=== PATIENT | female | born 1955 | race Caucasian/White ===

== ENCOUNTER 2018-01-09 09:50 | Emergency (ER) | payer MEDICARE ==
[2018-01-09] MEDS ORDERED: AMOXIC-POT CLAV 875MG STARTER 2 EACH TABLET PO STA (10:53)
[2018-01-09] MEDS ORDERED: AMOXIC-POT CLAV 875-125MG 1 EACH TAB PO STA (10:53)
[2018-01-09] MEDS ORDERED: ACETAMINOPHEN TAB 500 MG TAB PO STA (10:54)
--- NOTE | 2018-01-09 11:00 | ED ---
General Adult HPI - General Chief complaint: Dental/Oral Stated complaint: Tooth Pain Time Seen by Provider: 01/09/18 10:00 Source: patient, RN notes reviewed Mode of arrival: wheelchair Limitations: no limitations - History of Present Illness Initial comments: This is a 8-year-old female who presents emergency Department complaining that she thinks she has an dental abscess on the right lower jaw. Patient states it started on Tuesday and has gotten progressively worse. Patient states been unable to get into a dentist on the weekend and today's holiday. Patient states she went to [facility] they sent her here. Patient states just prior to coming into the emergency department she felt abscess rupture and she's been spitting pus out of her mouth at this time. Patient states it already feels better. Patient is not taking any Tylenol or Motrin for the fever she has not taken any antibiotics. Patient denies any other symptoms at this time. - Related Data Previous Rx's Medication Instructions Recorded Amoxicillin/Potassium Clav 1 each PO Q12HR #28 tab 01/09/18 [Augmentin 875-125 Tablet] Hydrocodone/Acetaminophen [[place] 1 each PO Q4HR PRN #14 tab 01/09/18 5-325] Ibuprofen [Motrin] 600 mg PO Q6HR PRN #20 tab 01/09/18 Allergies Allergy/AdvReac Type Severity Reaction Status Date / Time bacitracin Allergy Rash/Hives Verified 01/09/18 10:09 [From Neosporin ([id number])] clarithromycin [From Biaxin] Allergy Rash/Hives Verified 01/09/18 10:09 codeine Allergy Rash/Hives Verified 01/09/18 10:09 neomycin Allergy Rash/Hives Verified 01/09/18 10:09 [From Neosporin ([id number])] polymyxin B Allergy Rash/Hives Verified 01/09/18 10:09 [From Neosporin ([id number])] Review of Systems ROS Statement: Those systems with pertinent positive or pertinent negative responses have been documented in the HPI. ROS Other: All systems not noted in ROS Statement are negative. Past Medical History Past Medical History: Atrial Fibrillation, Diabetes Mellitus, Hyperlipidemia, Hypertension, Thyroid Disorder Additional Past Medical History / Comment(s): Neuropathy, skin cancer in nose, gout History of Any Multi-Drug Resistant Organisms: None Reported Past Surgical History: Section, Orthopedic Surgery Past Psychological History: No Psychological Hx Reported Smoking Status: Never smoker Past Alcohol Use History: None Reported Past Drug Use History: None Reported General Exam - General Exam Comments Initial Comments: GENERAL Patient is well-developed and well-nourished. Patient is in mild distress. MOUTH Patient has what appears to be a deflated abscess with pulse still slowly leaking out of it on her right lower jaw on the premolar EYES Patient's pupils are equal and round. Extraocular motion is intact SKIN Unremarkable NEURO The patient is alert and oriented 3 PYSCH Patient has normal interpersonal interactions. MUSCULOSKELETAL All 4 times and full range of motion Limitations: no limitations Course Vital Signs 01/09/18 01/09/18 10:05 11:15 Temperature 100.8 F H 97.9 F Pulse Rate 97 78 Respiratory 18 16 Rate Blood Pressure 152/83 138/70 O2 Sat by Pulse 97 99 Oximetry Disposition Clinical Impression: Dental abscess Disposition: HOME SELF-CARE Condition: Good Instructions: Dental Abscess (ED) Prescriptions: Amoxicillin/Potassium Clav [Augmentin 875-125 Tablet] 1 each PO Q12HR #28 tab Hydrocodone/Acetaminophen [[place] 5-325] 1 each PO Q4HR PRN #14 tab PRN Reason: Pain Ibuprofen [Motrin] 600 mg PO Q6HR PRN #20 tab PRN Reason: For pain Is patient prescribed a controlled substance at d/c from ED?: Yes When asked, does pt state using other controlled substances?: Yes If opioid is for acute pain is fill amount 7 days or less?: Yes Referrals: Kang Blackwell MD [Primary Care Provider] - 1-2 days Time of Disposition: 10:59
[2018-01-09] MEDS ORDERED: ACETAMINOPHEN TAB 500 MG TAB ONE (11:06)
[2018-01-09] MEDS ORDERED: AMOXIC-POT CLAV 875MG STARTER 2 EACH TABLET ONE (11:06)
[2018-01-09 11:16] VITALS: BP 138/70; PULSE 78; RESP 16; TEMP 97.9
== END 2018-01-09 11:15 | disposition home or self-care (01) ==
LOC: EC 09:50
DX: K04.7 Periapical abscess without sinus (principal); Z85.828 Personal history of other malignant neoplasm of skin; Z88.1 Allergy status to other antibiotic agents; Z88.5 Allergy status to narcotic agent
CPT/HCPCS: 99282

== ENCOUNTER → 2022-06-02 | Outpatient (CLI) | payer MEDICARE ==
[2022-06-02 14:38] LABS: African American GFR (CKD) >90 (>60 ml/min/1.73 sqM); Blood Urea Nitrogen 24 mg/dL (7-17); Non-African American GFR(CKD) 80 (>60 ml/min/1.73 sqM)
--- NOTE | 2022-06-02 16:28 | CT ---
EXAMINATION TYPE: CT abdomen pelvis w con DATE OF EXAM: 06/02/2022 COMPARISON: NONE HISTORY: 66-year-old female R10.84, R01.2, R19.00, Abdomen and pelvic pain. Vaginal bleeding. TECHNIQUE: Contiguous axial scanning of the abdomen and pelvis following administration of 100 ml Iso toy 300 IV contrast. Delayed images through the kidneys and coronal/sagittal reconstructions perform ed. CT DLP: 2528 mGycm Automated exposure control for dose reduction was used. FINDINGS: Heart upper limits of normal in size. Some LAD and RCA coronary calcifications are noted. P ericardial effusion. Tiny calcified granuloma periphery of the right lower lobe. No pleural effusion. Tiny hiatal hernia. Slight contour nodularity of the liver. Correlate for underlying cirrhosis. No focal liver lesions se en. Portal venous system is patent. No biliary ductal dilatation. Gallbladder, glands, spleen, and pancreas show no gross abnormality. Nonobstructive 7 mm calculus right kidney. Nonobstructive 4 mm calculus left kidney. There is delayed excretion of contrast from both kidneys noted. Correlate with A creatinine to exclude acute kidney injury. At least mild prostatic calcifications origin of the maría elena ateral renal arteries. No dilated small bowel, free fluid, or free air. There is left common iliac chain lymphadenopathy felicita suring up to 4.7 x 2.8 cm and left periaortic is equivocal at 1.0 cm. There is severe distention of the uterine cavity by fluid and irregular heterogeneous soft tissue sca ttered throughout the uterus. Uterus is dilated up to 22.8 x 11.5 x 13.5 cm. Possible abnormal soft tissue along the left bladder dome measuring 4.9 cm. Internal enlarged left ov jnenifer versus left obturator chain lymph node measuring 5.6 x 3.4 cm. Right ovary not well seen. There i s mild ascites within the anterior aspect of the pelvis interposed between the anterior uterus and bl adder dome. There is colon Mild degenerative change at the hips. Somewhat heterogeneous density of the visualized lumbar spine a nd sacrum may be due to osteopenia. Moderate to advanced degenerative disc disease mid to lower lumba r spine. Hypertrophic facet arthropathy. IMPRESSION: 1. ENLARGEMENT OF THE UTERUS UP TO 22.8 X 11.5 X 13.5 CM SECONDARY TO SEVERE DISTENTION OF THE UTERIN E CAVITY WITH COMBINATION OF FLUID AND HETEROGENEOUS SOFT TISSUE. FURTHER EVALUATION FOR POTENTIAL EN DOMETRIAL CARCINOMA OR CERVICAL STENOSIS. 2. EITHER ENLARGED LEFT OVARY VERSUS LEFT OBTURATOR CHAIN LYMPHADENOPATHY MEASURING 5.6 X 2.4 CM. 3. METASTATIC DISEASE WITH AN ENLARGED 4.7 X 2.8 CM LEFT COMMON ILIAC CHAIN LYMPH NODE. POSSIBLE SOFT TISSUE DEPOSIT ALONG THE LEFT DOME OF THE BLADDER MEASURING 4.9 CM. MILD ANTERIOR PELVIC FREE FLUID. 4. SLIGHT CONTOUR NODULARITY OF THE LIVER. CORRELATE FOR UNDERLYING CIRRHOSIS. 5. BILATERAL NONOBSTRUCTING RENAL CALCULI MEASURING UP TO 7 MM. 6. NO EXCRETION OF CONTRAST ON THE DELAYED KIDNEY IMAGES. CORRELATE WITH BUN/CREATININE TO EXCLUDE AC [place] RENAL FAILURE.
== END | disposition home or self-care (01) ==
LOC: RADCTMAIN 13:01
PROVIDERS: ATTEND Obstetrics & Gynecology Obstetrics
DX: C80.1 Malignant (primary) neoplasm, unspecified (principal); R10.84 Generalized abdominal pain; R19.00 Intra-abdominal and pelvic swelling, mass and lump, unspecified site
CPT/HCPCS: 82565; 84520; 74177; 36415; Q9967 ×2

== ENCOUNTER → 2022-07-01 | Outpatient (CLI) | payer MEDICARE ==
--- NOTE | 2022-07-01 09:49 | CT ---
EXAMINATION TYPE: CT chest w con CT DLP: 405.4 mGycm, Automated exposure control for dose reduction was used. DATE OF EXAM: 07/01/2022 8:14 AM COMPARISON: CT abdomen and pelvis 06/02/2022. CLINICAL INDICATION:Female, 66 years old with history of C54.9; PHH, Malignant neoplasm of corpus kana ri, unspecified TECHNIQUE: Multiple axial images were obtained through the chest following the administration of 70 c c of Isovue 300. Coronal and sagittal reformats reviewed. FINDINGS: LUNGS/ PLEURA: No pneumothorax, pleural effusion, focal consolidation. Right lower lobe 3 mm calcifie d granuloma. Few scattered tiny pulmonary micronodules examples including left apex 3 and 2 mm pulmon jennifer nodules (series 4, image 10), right midlung 2 mm noncalcified pulmonary nodule (series 4, image 3 1), right lower lobe 2 mm pulmonary nodule (series 4, image 39), and right lower lobe 3 mm noncalcifi ed pulmonary nodule (series 4, image 44). AIRWAY: Patent and unremarkable.. HEART: Size within normal limits. No pericardial effusion. Moderate coronary arterial calcifications. MEDIASTINUM: No gross evidence of adenopathy. VASCULATURE: No aortic aneurysm. MUSCULOSKELETAL: No acute osseous abnormalities. No aggressive osseous lesion. Mild multilevel degene rative changes of the visualized spine. SOFT TISSUES/LYMPH NODES: Enlarged left axillary lymph node measuring up to 1.6 cm short axis (series 3, image 12). LOWER NECK: Atrophic appearance of the thyroid gland.. UPPER ABDOMEN: Small hiatal hernia. Similar contour nodularity of the left hepatic lobe. IMPRESSION: 1. Few scattered nonspecific pulmonary micronodules measuring up to 3 mm. 2. Enlarged left axillary lymph node measuring 1.6 cm short axis. Raises concern for metastatic disea se. Consider further evaluation with PET/CT and/or tissue sampling.
== END | disposition home or self-care (01) ==
LOC: RADCTMAIN 07:08
PROVIDERS: ATTEND Internal Medicine Hematology & Oncology
DX: C54.9 Malignant neoplasm of corpus uteri, unspecified (principal); R91.8 Other nonspecific abnormal finding of lung field; R59.0 Localized enlarged lymph nodes
CPT/HCPCS: 82565; 84520; 71260; 36415; Q9967

== ENCOUNTER → 2022-08-23 | Outpatient (CLI) | payer MEDICARE ==
[2022-08-23 13:16] LABS: African American GFR (CKD) >90 (>60 ml/min/1.73 sqM); Blood Urea Nitrogen 16 mg/dL (7-17); Non-African American GFR(CKD) 87 (>60 ml/min/1.73 sqM)
--- NOTE | 2022-08-23 15:08 | CT ---
EXAMINATION TYPE: CT abdomen pelvis w con CT DLP: 1664.3 mGycm, Automated exposure control for dose reduction was used. DATE OF EXAM: 08/23/2022 2:54 PM COMPARISON: CT abdomen pelvis 06/02/2022. CLINICAL INDICATION:Female, 66 years old with history of C54.9 MALIGNANT NEOPLASM OF CORPUS UTERI, UN SPECIF; f/u uterine ca TECHNIQUE: Axial CT of the abdomen and pelvis. Sagittal and coronal reformats were created on a [employer] workstation. Contrast used:100 mL of Isovue 300 with IV Contrast, Oral contrast used: with Oral Contrast FINDINGS: LOWER CHEST: Right lower lobe 3 mm calcified granuloma. Unchanged from prior ABDOMEN LIVER: Nodular contour obstruction morphology. Most pronounced in the left hepatic lobe. No obvious s uspicious masses. GALLBLADDER AND BILE DUCTS: Unremarkable. PANCREAS: Unremarkable. SPLEEN: Unremarkable. ADRENAL GLANDS: Unremarkable. KIDNEYS AND URETERS: Nonobstructing right 7 mm renal calculus. Nonobstructing left 3 mm meter renal c alculus. No evidence of obstructive uropathy. PELVIS BLADDER: Unremarkable REPRODUCTIVE: Heterogenous appearing uterus measuring 16.8 x 9.2 x 13.1 cm, previously 21.1 x 11.6 x 13.5 cm. ABDOMEN & PELVIS STOMACH AND BOWEL: No evidence of bowel obstruction. PERITONEUM/RETROPERITONEUM: No evidence of pneumoperitoneum or free fluid. . VASCULATURE: No evidence of aortic aneurysm. MUSCULOSKELETAL: No acute osseous abnormalities, multilevel disc degeneration changes lucent area wit hin the L4 vertebral body is not significantly changed from prior same with a left lucent iliac crest lesion with peripheral sclerosis. LYMPH NODES: Interval increase in size of left retroperitoneal lymph node near the aortic bifurcation now measuring 7.4 x 6.5 x 6.4 cm, previously 4.5 x 4.7 x 2.8 cm. Other left external iliac lymph nod es have also increased in size including a 3.8 cm in short axis, previously 3.4 cm lymph node in the left obturator/left internal iliac chain. SOFT TISSUE/ABDOMINAL WALL: Unremarkable IMPRESSION: 1. Heterogenous enlarged uterus consistent with malignancy with interval increase in size of lymphad enopathy within the retroperitoneum pelvis consistent with progression of disease. 2. Similar nodular contour to liver correlate for cirrhosis. 3. Bilateral nonobstructing renal calculi.
== END | disposition home or self-care (01) ==
LOC: RADCTMAIN 12:36
PROVIDERS: ATTEND Internal Medicine Hematology & Oncology
DX: C54.9 Malignant neoplasm of corpus uteri, unspecified (principal); N20.0 Calculus of kidney; N85.2 Hypertrophy of uterus; K76.89 Other specified diseases of liver
CPT/HCPCS: 82565; 84520; 74177; 36415; Q9967 ×2

== ENCOUNTER 2022-10-28 12:11 | Inpatient (IN) | payer MEDICARE ==
[2022-10-28] MEDS ORDERED: SODIUM CHLORIDE 0.9% 1,000 ML IV STA ×2 (12:32)
[2022-10-28] MEDS ORDERED: VANCOMYCIN IV PER PHARMACY 1 EACH MISC MISCELLANE PRN (12:32)
[2022-10-28] MEDS ORDERED: ACETAMINOPHEN TAB 500 MG TAB PO STA (12:35)
[2022-10-28] MEDS ORDERED: CEFEPIME 2 GM in SODIUM CHLORIDE 0.9% 100 ML IVPB STA (12:38)
[2022-10-28] MEDS ORDERED: VANCOMYCIN 1,750 MG in SODIUM CHLORIDE 0.9% 500 ML 500 ML IVPB STA (12:39)
--- NOTE | 2022-10-28 13:19 | ED ---
General Adult HPI <Nguyen Chandra - Last Filed: 10/28/22 17:59> - General Source: patient, EMS, RN notes reviewed, old records reviewed Mode of arrival: EMS Limitations: altered mental status <Nathan Gracia - Last Filed: 10/28/22 22:14> - General Chief complaint: Shortness of Breath Stated complaint: JANE Time Seen by Provider: 10/28/22 12:26 - History of Present Illness Initial comments: Patient is a 67-year-old female who presents emergency Department with altered mental status, fever, tachycardia. Has history of A. fib with RVR on eliquis, stage IV uterine cancer with metastases, right ICA stenosis with blood thinner usage, chronic vaginal bleeding secondary to the cancer, who presents emergency Department complaining of altered mental status, as well as signs of worsening illness. Was diagnosed with Covid recently at her nursing facility. Was just discharged from the hospital on 10/18/2022. Patient has been having more confusion, some increased work of breathing, worsening tachycardia. Sent here for further evaluation. Patient states she has been coughing a lot. Denies any chest pain. Denies any abdominal pain, nausea, vomiting. Does have a chronic indwelling Bryant catheter. States she feels generalized weakness. Is normally alert and oriented 4 but is only alert and oriented 2 at this time. No other focal complaints at this time. Patient does present with DO NOT RESUSCITATE paperwork. (Nathan Gracia) - Related Data Home Medications Medication Instructions Recorded Confirmed Atorvastatin [Lipitor] 20 mg PO HS 10/05/22 10/28/22 Cholecalciferol [Vitamin D3 (25 50 mcg PO DAILY 10/05/22 10/28/22 Mcg = 1000 Iu)] Cyclobenzaprine [Flexeril] 10 mg PO TID PRN 10/05/22 10/28/22 Digoxin [Digitek] 125 mcg PO SUTUWETHSA 10/05/22 10/28/22 Digoxin [Digitek] 187.5 mcg PO MOFR 10/05/22 10/28/22 Famotidine [Pepcid] 20 mg PO Q12H 10/05/22 10/28/22 Ferrous Sulfate [Iron (65 MG 650 mg PO DAILY 10/05/22 10/28/22 Elemental)] Levothyroxine Sodium [Synthroid] 175 mcg PO DAILY 10/05/22 10/28/22 Losartan [Cozaar] 50 mg PO DAILY 10/05/22 10/28/22 Metoprolol Tartrate [Lopressor] 100 mg PO BID 10/05/22 10/28/22 [place]-3 Fatty Acids [[place]-3] 1,000 mg PO TID 10/05/22 10/28/22 Thiamine [Vitamin B-1] 100 mg PO DAILY 10/05/22 10/28/22 Vit C/E/Zn/Coppr/Lutein/Zeaxan 1 cap PO Q12H 10/05/22 10/28/22 [Preservision Areds 2 Softgel] allopurinoL 200 mg PO DAILY 10/05/22 10/28/22 metFORMIN HCL ER [Glucophage XR] 500 mg PO DAILY 10/05/22 10/28/22 Apixaban [Eliquis] 5 mg PO Q12H 10/28/22 10/28/22 Ascorbic Acid [Vitamin C] 500 mg PO DAILY 10/28/22 10/28/22 HYDROcodone/APAP 5-325MG [[place] 1 tab PO TID PRN 10/28/22 10/28/22 5-325] Ondansetron [Zofran] 4 mg PO Q4H PRN 10/28/22 10/28/22 Zinc Gluconate [Zinc] 50 mg PO DAILY 10/28/22 10/28/22 predniSONE See Taper PO DIRECTED 10/28/22 10/28/22 Previous Rx's Medication Instructions Recorded Acetaminophen Tab [Tylenol] 650 mg PO Q6HR PRN tab 10/18/22 Aspirin 81 mg PO DAILY tab 10/18/22 Butalb/APAP/Caff 50-325-40Mg 1 tab PO Q4H PRN #6 tablet 10/18/22 [Fioricet 50-325-40] Doxycycline [Vibramycin] 100 mg PO BID #41 cap 10/18/22 Fluticasone Nasal [place] [Flonase 2 spray EA NOSTRIL DAILY ml 10/18/22 Nasal [place]] Gabapentin [Neurontin] 400 mg PO QID #12 cap 10/18/22 Mag Hydrox/Al Hydrox/Simeth 30 ml PO TID ml 10/18/22 [Maalox] Meclizine [Antivert] 25 mg PO TID PRN tab 10/18/22 Sennosides [Senokot] 8.6 mg PO BID PRN tab 10/18/22 guaiFENesin [Mucinex] 1,200 mg PO Q12HR tab 10/18/22 Allergies Allergy/AdvReac Type Severity Reaction Status Date / Time bacitracin Allergy Rash/Hives Verified 10/28/22 15:04 [From Neosporin ([id number])] clarithromycin [From Biaxin] Allergy Rash/Hives Verified 10/28/22 15:04 codeine Allergy Rash/Hives Verified 10/28/22 15:04 neomycin Allergy Rash/Hives Verified 10/28/22 15:04 [From Neosporin ([id number])] polymyxin B Allergy Rash/Hives Verified 10/28/22 15:04 [From Neosporin ([id number])] Review of Systems ROS Other: All systems not noted in ROS Statement are negative. <Nguyen Chandra - Last Filed: 10/28/22 17:59> ROS Other: All systems not noted in ROS Statement are negative. <Nathan Gracia - Last Filed: 10/28/22 22:14> ROS Statement: Those systems with pertinent positive or pertinent negative responses have been documented in the HPI. Review of Systems: CONST: Denies fever EYES: Denies blurry vision ENT: Endorse's nasal congestion C/V: Denies Chest pain RESP: Endorse's increased coughing GI: Denies abdominal pain : Denies dysuria SKIN: Denies rash. MSK: Denies joint pain. NEURO: Denies headache (Nathan Gracia) Past Medical History Past Medical History: Atrial Fibrillation, Diabetes Mellitus, Hyperlipidemia, Hypertension, Thyroid Disorder Additional Past Medical History / Comment(s): Neuropathy, skin cancer in nose, gout History of Any Multi-Drug Resistant Organisms: None Reported Past Surgical History: Section, Orthopedic Surgery Additional Past Surgical History / Comment(s): ulnar nerve surgery Past Anesthesia/Blood Transfusion Reactions: No Reported Reaction Past Psychological History: No Psychological Hx Reported Past Alcohol Use History: None Reported Past Drug Use History: None Reported <Nathan Gracia - Last Filed: 10/28/22 22:14> General Exam Limitations: altered mental status <Nathan Gracia - Last Filed: 10/28/22 22:14> - General Exam Comments Initial Comments: General: Appears in no acute distress at this time. HEAD: Normal with no signs of head trauma. EYES: PERRLA, EOMI, conjunctiva normal, no discharge. ENT: Hearing grossly intact, normal oropharynx. Dry mucous membranes RESPIRATORY: Coarse breath sounds bilaterally. Saturating well on 2 L nasal cannula. C/V: Irregular rate and rhythm. S1 and S2 auscultated, mild bilateral lower extremity pitting edema, peripheral pulses 2+ and intact throughout ABD: Abd is soft, nontender, nondistended EXT: Normal range of motion, no obvious deformity SKIN: No rashes or lesions observed on exposed skin. NEURO: Alert and oriented 2. No focal sensory strength deficits. (Nathan Gracia) Course Vital Signs 10/28/22 10/28/22 10/28/22 12:14 12:23 12:30 Temperature 101.3 F H Pulse Rate 121 H 112 H 123 H Respiratory 20 21 21 Rate Blood Pressure 125/41 125/41 96/57 O2 Sat by Pulse 98 100 98 Oximetry 10/28/22 10/28/22 10/28/22 13:00 13:30 14:00 Temperature Pulse Rate 115 H 110 H 105 H Respiratory 16 22 20 Rate Blood Pressure 106/69 111/70 103/66 O2 Sat by Pulse 100 98 98 Oximetry 10/28/22 10/28/22 10/28/22 14:30 14:57 15:00 Temperature 98.3 F Pulse Rate 106 H 115 H 120 H Respiratory 21 20 20 Rate Blood Pressure 107/93 126/56 126/56 O2 Sat by Pulse 100 94 L 93 L Oximetry 10/28/22 10/28/22 10/28/22 15:30 16:00 18:22 Temperature 97.5 F L Pulse Rate 115 H 110 H 116 H Respiratory 18 23 24 Rate Blood Pressure 132/50 97/51 60/28 O2 Sat by Pulse 92 L 91 L 116 H Oximetry Procedures - EJ/Peripheral Line No standard instances Indications: nurses unable to establish peripheral IV Skin Cleansed in Sterile Fashion: Yes Size: 20 Dressing Placed: Tegaderm Patient Tolerated Procedure: well, no complications <Nguyen Chandra - Last Filed: 10/28/22 17:59> - Sepsis Sepsis Focused Exam #1 Time Sepsis Criteria Met: 12:32 Sepsis Focused Exam Date: 10/28/22 Sepsis Focused Exam Time: 17:00 Sepsis Focused Exam Complete: Yes Vital Signs & RN Notes Reviewed: Yes Capillary Refill: < 2 Seconds: Fingers, Toes Peripheral Pulses: Normal: Radial (R), Radial (L) Skin Color: Normal for Patient Respiratory Exam: normal lung sounds Cardiovascular Exam: regular rate, irregular rhythm <BasilNathan - Last Filed: 10/28/22 22:14> - EJ/Peripheral Line No standard instances Additional Comments: Ultrasound-guided IV placed 20-gauge placed in the left upper arm. site is clean and dry and intact. Without any redness or erythema. Saline lock was flushed with 10 mL. Secured with Tegaderm. No complications patient tolerated well (Nguyen Chandra) Medical Decision Making - Lab Data Result diagrams: 10/28/22 14:29 10/28/22 14:29 <Nguyen Chandra - Last Filed: 10/28/22 17:59> - Lab Data Result diagrams: 10/28/22 14:29 10/28/22 14:29 - EKG Data -: EKG Interpreted by Me <BasilNathan - Last Filed: 10/28/22 22:14> - Medical Decision Making Was pt. sent in by a medical professional or institution (, PA, PROSPECT MANAGER, urgent care, hospital, or intermediate...) When possible be specific @ -Sent from [facility] in the [facility] Did you speak to anyone other than the patient for history (EMS, parent, family, police, friend...)? What history was obtained from this source @ -No Did you review nursing and triage notes (agree or disagree)? Why? @ -I reviewed and agree with nursing and triage notes Were old charts reviewed (outside hosp., previous admission, EMS record, old EKG, old radiological studies, urgent care reports/EKG's, intermediate records)? Report findings @ -Old charts reviewed from most recent admission from October 2022. Differential Diagnosis (chest pain, altered mental status, abdominal pain women, abdominal pain men, vaginal bleeding, weakness, fever, dyspnea, syncope, headache, dizziness, GI bleed, back pain, seizure, CVA, palpatations, mental health, musculoskeletal)? @ -Differential Dyspnea: Coronary syndrome, arrhythmia, tamponade, asthma, COPD, pulmonary embolism, pneumonia, pneumothorax, pulmonary effusion, anaphylaxis, diabetic ketoacidosis, flailed chest, pulmonary contusion, diaphragmatic rupture, anemia, pneumonia, Covid infection, A. fib neuromuscular, this is not meant to be an all-inclusive list. EKG interpreted by me (3pts min.). @ -As above X-rays interpreted by me (1pt min.). @ -Chest x-ray negative for any acute infiltrate. Appears to have chronic findings. Also a left sided pleural effusion. CT interpreted by me (1pt min.). @ -CT brain negative for any obvious acute intracranial process. U/S interpreted by me (1pt. min.). @ -None done What testing was considered but not performed or refused? (CT, X-rays, U/S, labs)? Why? @ -None What meds were considered but not given or refused? Why? @ -None Did you discuss the management of the patient with other professionals (professionals i.e. DrNeri, PA, PROSPECT MANAGER, lab, RT, psych nurse, social work therapist, bilingual teacher assistant, teacher, corporate banking officer, caser)? Give summary @ -No Was smoking cessation discussed for >3mins.? @ -No Was critical care preformed (if so, how long)? @ -Yes, 35 minutes. Were there social determinants of health that impacted care today? How? (Homel essness, low income, unemployed, alcoholism, drug addiction, transportation, low edu. Level, literacy, decrease access to med. care, [facility], rehab)? @ -No Was there de-escalation of care discussed even if they declined (Discuss DNR or withdrawal of care, Hospice)? DNR status @ -No What co-morbidities impacted this encounter? (DM, HTN, Smoking, COPD, CAD, Cancer, CVA, ARF, Chemo, Hep., AIDS, mental health diagnosis, sleep apnea, morbid obesity)? @ -History of atrial fibrillation, history of metastatic cancer, on blood thinners, recent Covid 19 infection Was patient admitted / discharged? Hospital course, mention meds given and route, prescriptions, significant lab abnormalities, going to OR and other pertinent info. @ -Based on the patient's presentation and physical exam, and concern for acute infectious etiology for her current symptoms. She presents febrile, with increased work of breathing and hypoxic respiratory failure requiring nasal cannula oxygen. Was recently diagnosed Covid. Patient is also tachycardic. I do believe she meets sepsis criteria at this time. She is altered as well. She'll be started on broad-spectrum thank mice and cefepime. Due to the increased lower extremity edema, we will initially start the patient on 1 L fluid bolus as she does appear mildly dehydrated and then put her on 130 mL an hour of fluids. Patient started on broad-spectrum antibiotic mice and cefepime. Lactic acid is pending. Blood cultures were obtained sent. Patient is doing on 4 L nasal cannula oxygen we will wean off as tolerated. She was in agreement with this plan. Bryant catheter will be replaced. Patient's laboratory studies are remarkable for a leukocytosis of 26, anemia of 8.2, lactic acidosis of 3.1, nondetectable troponin, as well as what appears to be urinary tract infection positive Covid test. Patient has chronic anemia which is unchanged. Chest x-ray reveals a left-sided pleural effusion as well as chronic findings of a possible infiltrate that is unchanged from prior chest x-ray. Brain CT shows no acute intracranial process. I updated the patient. Vital signs are improved at this time. She'll be admitted for her sepsis, Covid 19 infection, A. fib with RVR. She was in agreement this plan. Broad spectrum antibiotics will be continued. I spoke with the admitting physician, Dr. Hernández who accepted the patient. She was admitted in serious condition. Patient is hemodynamically stable and feels improved when I updated her. Inpatient team requested that I consult infectious disease. Undiagnosed new problem with uncertain prognosis? @ -No Drug Therapy requiring intensive monitoring for toxicity (Heparin, Nitro, Insulin, Cardizem)? @ -No Were any procedures done? @ -No Diagnosis/symptom? @ -Covid 19 infection Acute, or Chronic, or Acute on Chronic? @ -Acute Uncomplicated (without systemic symptoms) or Complicated (systemic symptoms)? @ -Complicated Side effects of treatment? @ -No Exacerbation, Progression, or Severe Exacerbation? @ -No Poses a threat to life or bodily function? How? (Chest pain, [place], [place], pneumonia, PE, COPD, DKA, ARF, appy, cholecystitis, CVA, Diverticulitis, Homicidal, Suicidal, threat to staff... and all critical care pts) @ -Yes, can potentially cause significant morbidity and mortality. Diagnosis/symptom? @ -Sepsis Acute, or Chronic, or Acute on Chronic? @ -Acute Uncomplicated (without systemic symptoms) or Complicated (systemic symptoms)? @ -Complicated Side effects of treatment? @ -none Exacerbation, Progression, or Severe Exacerbation] @ -no Poses a threat to life or bodily function? @ -If untreated can result in significant morbidity and mortality. Diagnosis/symptom? @ -A. fib with RVR Acute, or Chronic, or Acute on Chronic? @ -Acute on chronic Uncomplicated (without systemic symptoms) or Complicated (systemic symptoms)? @ -Uncomplicated Side effects of treatment? @ -none Exacerbation, Progression, or Severe Exacerbation] @ -no Poses a threat to life or bodily function? @ -If untreated can result in significant morbidity and mortality. Diagnosis/symptom? @ -UTI Acute, or Chronic, or Acute on Chronic? @ -Acute Uncomplicated (without systemic symptoms) or Complicated (systemic symptoms)? @ -Complicated Side effects of treatment? @ -none Exacerbation, Progression, or Severe Exacerbation] @ -no Poses a threat to life or bodily function? @ -If untreated can result in significant morbidity and mortality. Diagnosis/symptom? @ -DO NOT RESUSCITATE Acute, or Chronic, or Acute on Chronic? @ -Acute Uncomplicated (without systemic symptoms) or Complicated (systemic symptoms)? @ -Uncomplicated Side effects of treatment? @ -none Exacerbation, Progression, or Severe Exacerbation] @ -no Poses a threat to life or bodily function? @ -no Diagnosis/symptom? @ -History of metastatic cancer Acute, or Chronic, or Acute on Chronic? @ -Chronic Uncomplicated (without systemic symptoms) or Complicated (systemic symptoms)? @ -Complicated Side effects of treatment? @ -none Exacerbation, Progression, or Severe Exacerbation] @ -no Poses a threat to life or bodily function? @ -Yes, poses threat to life. (Nathan Gracia) - Lab Data Lab Results 10/28/22 10/28/22 10/28/22 Range/Units 14:29 14:29 14:29 WBC 26.0 H (3.8-10.6) k/uL RBC 2.31 L (3.80-5.40) m/uL Hgb 8.2 L (11.4-16.0) gm/dL Hct 25.3 L (34.0-46.0) % MCV 109.7 H D (80.0-100.0) fL MCH 35.6 H (25.0-35.0) pg MCHC 32.5 (31.0-37.0) g/dL RDW 15.1 (11.5-15.5) % Plt Count 220 (150-450) k/uL MPV 8.2 Neutrophils % 93 % Lymphocytes % 4 % Monocytes % 2 % Eosinophils % 0 % Basophils % 0 % Neutrophils # 24.2 H (1.3-7.7) k/uL Lymphocytes # 1.0 (1.0-4.8) k/uL Monocytes # 0.5 (0-1.0) k/uL Eosinophils # 0.1 (0-0.7) k/uL Basophils # 0.0 (0-0.2) k/uL Manual Slide Review Performed Hypochromasia Slight Macrocytosis Marked A PT 12.0 (9.0-12.0) sec INR 1.2 H (<1.2) APTT 26.9 (22.0-30.0) sec Sodium (137-145) mmol/L Potassium (3.5-5.1) mmol/L Chloride (98-107) mmol/L Carbon Dioxide (22-30) mmol/L Anion Gap mmol/L BUN (7-17) mg/dL Creatinine (0.52-1.04) mg/dL Est GFR (CKD-EPI)AfAm (>60 ml/min/1.73 sqM) Est GFR (CKD-EPI)NonAf (>60 ml/min/1.73 sqM) Glucose (74-99) mg/dL Lactic Ac Sepsis Rflx Plasma Lactic Acid Adrian (0.7-2.0) mmol/L Calcium (8.4-10.2) mg/dL Magnesium (1.6-2.3) mg/dL Total Bilirubin (0.2-1.3) mg/dL AST (14-36) U/L ALT (4-34) U/L Alkaline Phosphatase (38-126) U/L Ammonia (<30) umol/L Troponin I (0.000-0.034) ng/mL NT-Pro-B Natriuret Pep pg/mL Total Protein (6.3-8.2) g/dL Albumin (3.5-5.0) g/dL Urine Color Yellow Urine Appearance Turbid H (Clear) Urine pH 6.0 (5.0-8.0) Ur Specific [place] 1.022 (1.001-1.035) Urine Protein 2+ H (Negative) Urine Glucose (UA) Negative (Negative) Urine Ketones Negative (Negative) Urine Blood Large H (Negative) Urine Nitrite Negative (Negative) Urine Bilirubin Negative (Negative) Urine Urobilinogen <2.0 (<2.0) mg/dL Ur Leukocyte Esterase Large H (Negative) Urine RBC >182 H (0-5) /hpf Urine WBC >182 H (0-5) /hpf Urine WBC Clumps Many H (None) /hpf Urine Bacteria Moderate H (None) /hpf Urine Mucus Moderate H (None) /hpf Urine Yeast (Budding) Many H (None) /hpf Influenza Type A (PCR) (Not Detectd) Influenza Type B (PCR) (Not Detectd) RSV (PCR) (Not Detectd) SARS-CoV-2 (PCR) (Not Detectd) 10/28/22 10/28/22 10/28/22 Range/Units 14:29 14:29 14:29 WBC (3.8-10.6) k/uL RBC (3.80-5.40) m/uL Hgb (11.4-16.0) gm/dL Hct (34.0-46.0) % MCV (80.0-100.0) fL MCH (25.0-35.0) pg MCHC (31.0-37.0) g/dL RDW (11.5-15.5) % Plt Count (150-450) k/uL MPV Neutrophils % % Lymphocytes % % Monocytes % % Eosinophils % % Basophils % % Neutrophils # (1.3-7.7) k/uL Lymphocytes # (1.0-4.8) k/uL Monocytes # (0-1.0) k/uL Eosinophils # (0-0.7) k/uL Basophils # (0-0.2) k/uL Manual Slide Review Hypochromasia Macrocytosis PT (9.0-12.0) sec INR (<1.2) APTT (22.0-30.0) sec Sodium 132 L (137-145) mmol/L Potassium 4.8 (3.5-5.1) mmol/L Chloride 92 L (98-107) mmol/L Carbon Dioxide 36 H (22-30) mmol/L Anion Gap 4 mmol/L BUN 21 H (7-17) mg/dL Creatinine 0.78 (0.52-1.04) mg/dL Est GFR (CKD-EPI)AfAm >90 (>60 ml/min/1.73 sqM) Est GFR (CKD-EPI)NonAf 80 (>60 ml/min/1.73 sqM) Glucose 144 H (74-99) mg/dL Lactic Ac Sepsis Rflx Plasma Lactic Acid Adrian 3.1 H* (0.7-2.0) mmol/L Calcium 8.9 (8.4-10.2) mg/dL Magnesium 2.0 (1.6-2.3) mg/dL Total Bilirubin 0.9 (0.2-1.3) mg/dL AST 50 H (14-36) U/L ALT 24 (4-34) U/L Alkaline Phosphatase 148 H (38-126) U/L Ammonia <9 (<30) umol/L Troponin I <0.012 (0.000-0.034) ng/mL NT-Pro-B Natriuret Pep pg/mL Total Protein 6.3 (6.3-8.2) g/dL Albumin 2.9 L (3.5-5.0) g/dL Urine Color Urine Appearance (Clear) Urine pH (5.0-8.0) Ur Specific [place] (1.001-1.035) Urine Protein (Negative) Urine Glucose (UA) (Negative) Urine Ketones (Negative) Urine Blood (Negative) Urine Nitrite (Negative) Urine Bilirubin (Negative) Urine Urobilinogen (<2.0) mg/dL Ur Leukocyte Esterase (Negative) Urine RBC (0-5) /hpf Urine WBC (0-5) /hpf Urine WBC Clumps (None) /hpf Urine Bacteria (None) /hpf Urine Mucus (None) /hpf Urine Yeast (Budding) (None) /hpf Influenza Type A (PCR) (Not Detectd) Influenza Type B (PCR) (Not Detectd) RSV (PCR) (Not Detectd) SARS-CoV-2 (PCR) (Not Detectd) 10/28/22 10/28/22 10/28/22 Range/Units 14:29 14:29 15:02 WBC (3.8-10.6) k/uL RBC (3.80-5.40) m/uL Hgb (11.4-16.0) gm/dL Hct (34.0-46.0) % MCV (80.0-100.0) fL MCH (25.0-35.0) pg MCHC (31.0-37.0) g/dL RDW (11.5-15.5) % Plt Count (150-450) k/uL MPV Neutrophils % % Lymphocytes % % Monocytes % % Eosinophils % % Basophils % % Neutrophils # (1.3-7.7) k/uL Lymphocytes # (1.0-4.8) k/uL Monocytes # (0-1.0) k/uL Eosinophils # (0-0.7) k/uL Basophils # (0-0.2) k/uL Manual Slide Review Hypochromasia Macrocytosis PT (9.0-12.0) sec INR (<1.2) APTT (22.0-30.0) sec Sodium (137-145) mmol/L Potassium (3.5-5.1) mmol/L Chloride (98-107) mmol/L Carbon Dioxide (22-30) mmol/L Anion Gap mmol/L BUN (7-17) mg/dL Creatinine (0.52-1.04) mg/dL Est GFR (CKD-EPI)AfAm (>60 ml/min/1.73 sqM) Est GFR (CKD-EPI)NonAf (>60 ml/min/1.73 sqM) Glucose (74-99) mg/dL Lactic Ac Sepsis Rflx Y Plasma Lactic Acid Adrian (0.7-2.0) mmol/L Calcium (8.4-10.2) mg/dL Magnesium (1.6-2.3) mg/dL Total Bilirubin (0.2-1.3) mg/dL AST (14-36) U/L ALT (4-34) U/L Alkaline Phosphatase (38-126) U/L Ammonia (<30) umol/L Troponin I (0.000-0.034) ng/mL NT-Pro-B Natriuret Pep 3310 pg/mL Total Protein (6.3-8.2) g/dL Albumin (3.5-5.0) g/dL Urine Color Urine Appearance (Clear) Urine pH (5.0-8.0) Ur Specific [place] (1.001-1.035) Urine Protein (Negative) Urine Glucose (UA) (Negative) Urine Ketones (Negative) Urine Blood (Negative) Urine Nitrite (Negative) Urine Bilirubin (Negative) Urine Urobilinogen (<2.0) mg/dL Ur Leukocyte Esterase (Negative) Urine RBC (0-5) /hpf Urine WBC (0-5) /hpf Urine WBC Clumps (None) /hpf Urine Bacteria (None) /hpf Urine Mucus (None) /hpf Urine Yeast (Budding) (None) /hpf Influenza Type A (PCR) Not Detected (Not Detectd) Influenza Type B (PCR) Not Detected (Not Detectd) RSV (PCR) Not Detected (Not Detectd) SARS-CoV-2 (PCR) Detected A (Not Detectd) - EKG Data EKG Comments: 12-lead Electrocardiogram Interpretation Note EKG was reviewed and interpreted by myself. 12-lead ECG performed at 1222 is interpreted by me as revealing A. fib with RVR at a rate of 100 beats per minute. [place] is normal. QRS duration 77 ms, QTc is 377 ms.. There were no acute ST or T wave abnormalities to suggest myocardial ischemia or injury. Chronic mild ST segment depressions in the anterior precordial leads. R wave progression across the precordium was satisfactory. By my interpretation this EKG is non-diagnostic for acute ischemia. When compared with EKG from 10/12/2022, mild ST segment depressions redemonstrated. (Nathan Gracia) Critical Care Time Critical Care Time: Yes Total Critical Care Time: 35 <Nathan Gracia - Last Filed: 10/28/22 22:14> Critical Care Time: Upon my evaluation, this patient had a high probability of imminent or life- threatening deterioration due to sepsis, Covid 19 infection, UTI, which required my direct attention, intervention, and personal management. I have personally provided 35 minutes of critical care time exclusive of time spent on separately billable procedures. Time includes review of laboratory data, radiology results, discussion with consultants, and monitoring for potential decompensation. Interventions were performed as documented in my note. (Nathan Gracia) Disposition <Nguyen Chandra - Last Filed: 10/28/22 17:59> Time of Disposition: 15:40 <Nathan Gracia - Last Filed: 10/28/22 22:14> Clinical Impression: Sepsis, Atrial fibrillation with RVR, COVID-19 virus infection, Acute respiratory failure with hypoxia, Lactic acidosis Disposition: ADMITTED IP TO THIS HOSP Condition: Serious
--- NOTE | 2022-10-28 14:40 | CT ---
EXAMINATION TYPE: CT brain wo con DATE OF EXAM: 10/28/2022 HISTORY: Weakness CT DLP: 1099.4 mGycm. Automated Exposure Control for Dose Reduction was Utilized. TECHNIQUE: CT scan of the head is performed without contrast. COMPARISON: CT brain 11 days ago. FINDINGS: There is no acute intracranial hemorrhage or midline shift identified. There is mild diff use ventricular and sulcal prominence redemonstrated. Tinajero-white matter differentiation is preserved. Nearly completely opacified right maxillary sinus is seen on current study improved from prior. Ther e is new dependent fluid in the left maxillary sinus on current study. There is some dependent flui d in the ethmoid sinuses bilaterally on current study. Completely opacified right frontal sinus is re demonstrated. Some dependent fluid in inferior left frontal sinus is now seen on current study. IMPRESSION: No acute intracranial hemorrhage or midline shift. There is diffuse cerebral atrophy re demonstrated. Acute paranasal sinus disease is redemonstrated with some interval change from recent C T study.
[2022-10-28 14:55] LABS: INR 1.2 (<1.2); Partial Thromboplastin Time 26.9 sec (22.0-30.0)
[2022-10-28 14:56] LABS: ALT 24 U/L (4-34); AST 50 U/L (14-36); African American GFR (CKD) >90 (>60 ml/min/1.73 sqM); Albumin 2.9 g/dL (3.5-5.0); Alkaline Phosphatase 148 U/L (38-126); Anion Gap 4 mmol/L; Blood Urea Nitrogen 21 mg/dL (7-17); Calcium 8.9 mg/dL (8.4-10.2); Carbon Dioxide 36 mmol/L (22-30); Chloride 92 mmol/L (98-107); Glucose 144 mg/dL (74-99); Non-African American GFR(CKD) 80 (>60 ml/min/1.73 sqM); Potassium 4.8 mmol/L (3.5-5.1); Sodium 132 mmol/L (137-145); Total Bilirubin 0.9 mg/dL (0.2-1.3); Total Protein 6.3 g/dL (6.3-8.2)
[2022-10-28 15:02] LABS: Basophils % (A) 0 %; Eosinophils # (A) 0.1 k/uL (0-0.7); Eosinophils % (A) 0 %; HCT 25.3 % (34.0-46.0); HGB 8.2 gm/dL (11.4-16.0); Hypochromasia Slight; Lactic Acid, Venous 3.1 mmol/L (0.7-2.0); Lymphocytes % (A) 4 %; MCH 35.6 pg (25.0-35.0); MCHC 32.5 g/dL (31.0-37.0); Mean Platelet Volume 8.2; Monocytes # (A) 0.5 k/uL (0-1.0); Monocytes % (A) 2 %; Neutrophils # (A) 24.2 k/uL (1.3-7.7); Neutrophils % (A) 93 %; Platelet Count 220 k/uL (150-450); RBC 2.31 m/uL (3.80-5.40); RDW 15.1 % (11.5-15.5)
[2022-10-28 15:03] LABS: MCV 109.7 fL (80.0-100.0)
[2022-10-28 15:07] LABS: Appearance,Urine Turbid (Clear); Bacteria,Urine Moderate /hpf; Bilirubin,Urine Negative (Negative); Blood,Urine Large (Negative); Budding Yeast,Urine Many /hpf; Color,Urine Yellow; Glucose,Urine (UA) Negative (Negative); Ketones,Urine Negative (Negative); Leukocyte Esterase,Urine Large (Negative); Mucus,Urine Moderate /hpf; Nitrite,Urine Negative (Negative); Protein,Urine 2+ (Negative); RBC,Urine >182 /hpf (0-5); Specific Gravity,Urine 1.022 (1.001-1.035); Urobilinogen,Urine <2.0 mg/dL (<2.0); WBC,Urine >182 /hpf (0-5)
[2022-10-28 15:25] LABS: Macrocytosis Marked
--- NOTE | 2022-10-28 15:33 | XR ---
EXAMINATION TYPE: XR chest 2V DATE OF EXAM: 10/28/2022 COMPARISON: Chest x-ray October 12, 2022 and older studies. HISTORY: Weakness. TECHNIQUE: Frontal and lateral views of the chest are obtained. FINDINGS: There is persistent cardiomegaly. There is persistent small left pleural effusion and left posterior opacity. Right lung remains clear. The osseous structures are intact. IMPRESSION: Cardiomegaly with small left-sided pleural fusion or fluid collection and associated lef t lower lobe acute infiltrate and/or atelectasis redemonstrated. No significant change from more rece nt studies.
[2022-10-28] MEDS ORDERED: NALOXONE 0.4 MG/ML 1 ML VIAL IV PRN (15:56)
--- NOTE | 2022-10-28 18:02 | P.HPIM ---
History of Present Illness H&P Date: 10/28/22 Patient is a very pleasant 67-year-old woman with a medical history of stage IV uterine cancer with metastasis, hypertension, hyperlipidemia, diabetes, iron deficiency anemia, and permanent atrial fibrillation. She was initially hospitalized on 10/05/22 for altered mentation and discharged on 10/18/22. There was concerns for aseptic meningitis given her history of keytruda and lenvima use. Stroke was ruled out with 2 MRI brains. Lumbar puncture was done which showed elevated total protein of 70, normal glucose, elevated total nucleated cells of 45 with predominance of mononuclear white blood cells. ID was consulted, and did not believe findings were consistent with bacterial meningitis. HSV and viral panel CSF was negative. She was also seen by vascular surgery for critical stenosis of the right ICA, recommended outpatient follow-up. She was initiated on Keppra for seizure prophylaxis by Neurology. She completed multiple days of Zosyn IV for presumed pneumonia which was transitioned to Augmentin. HIV and treponema were both nonreactive. Lyme screening IgG and IgM was positive at 2.05. Augmentin discontinued at that time and patient started on doxycycline 100 mg twice daily to complete a three-week course and follow up outpatient with ID. She was subsequently discharged to SNF. Patient presents back to the ED from SNF for worsening altered mentation, increased work of breathing and worsening tachycardia. Of note, patient was diagnosed with COVID-19 at SNF. In the ED, T-max was 101.3 Fahrenheit. She was tachycardic with heart rate in the 120s. Vital signs were otherwise stable. CBC showed leukocytosis of 26 with hemoglobin of 8.2 and MCV of 109.7. INR was 1.2. CMP showed sodium of 132, chloride of 92, bicarb of 36, BUN of 21, glucose 144, AST of 50 and alkali ne phosphatase of 148. Lactic acid was 3.1. Ammonia was negative. Troponin was less than 0.012. BNP was 3310 chest x-ray show cardiomegaly with small left-sided pleural effusion or fluid collection and associated left lower lobe acute infiltrate/atelectasis. Brain CT was negative for acute finding. COVID- 19 was positive. Influenza flu negative. Urinalysis showed large blood, large leukocyte esterase with moderate bacteria, moderate mucus and many yeast. Patient is admitted for sepsis with infectious disease consultation. Pertinent positives and negatives as discussed in HPI, a complete review of systems was performed and all other systems are negative. General: non toxic, no distress, appears at stated age Derm: warm, dry Head: atraumatic, normocephalic, symmetric Eyes: EOMI, no lid lag, anicteric sclera Mouth: no lip lesion, mucus membranes moist Cardiovascular: Irregularly irregular, no murmur Lungs: Decreased BS bilateral, no rhonchi, no rales , no accessory muscle use Abdominal: soft, suprapubic tenderness, no guarding, no appreciable organomegaly Ext: no gross muscle atrophy, no edema, no contractures Neuro: no focal neuro deficits Psych: Alert, oriented x 2 #Sepsis #Urinary tract infection #COVID-19 pneumonia #Acute metabolic encephalopathy likely related to above #Hyponatremia likely related to dehydration #Macrocytic anemia Chronic conditions: stage IV uterine cancer with metastasis, hypertension, hyperlipidemia, diabetes, iron deficiency anemia, and permanent atrial fibrillation Based on my assessment of this patient, this patient meets a high complexity level of care. I have reviewed the following wellness consultant notes: None. I have reviewed the results of the following tests: CBC showed leukocytosis of 26 with hemoglobin of 8.2 and MCV of 109.7. INR was 1.2. CMP showed sodium of 132, chloride of 92, bicarb of 36, BUN of 21, glucose 144, AST of 50 and alkaline phosphatase of 148. Lactic acid was 3.1. Ammonia was negative. Troponin was less than 0.012. BNP was 3310. Brain CT was negative for acute finding. COVID-19 was positive. Influenza flu negative. Urinalysis showed large blood, large leukocyte esterase with moderate bacteria, moderate mucus and many yeast. I have ordered the following tests: Lactic acid. Blood culture. Urine culture. CBC for tomorrow morning. BMP for tomorrow morning. I have discussed the care of this patient with the following independent hist orian: None. I have independently interpreted the following test below: Chest x-ray show cardiomegaly with left-sided infiltrate. I have discussed the management of this patient with the following physician: The case was discussed with ER physician and decision was made to admit the patient under inpatient status for treatment of sepsis. This patient has a high risk of morbidity due to the following reasons: Patient has an acute diagnosis of sepsis likely related to UTI and COVID-19 pneumonia that poses a threat to life or bodily function. Patient will be started on vancomycin 1750 mg IV twice a day and cefepime 2 g IV 3 times a day for broad-spectrum antibiotic coverage. Telemetry monitoring will be ordered. Blood culture and urine culture will be collected. She will be hydrated with normal saline at 130 mL per hour. Infectious disease will be consulted for further management of this patient. Anticipated her hyponatremia, hypochloremia and elevated BUN to improve with IV hydration as above. Plans to repeat BMP tomorrow morning. Her hemoglobin appears at baseline. She does not require blood transfusion at this time. Plans to repeat CBC tomorrow morning. Eliquis for DVT prophylaxis. Patient would like to be NO CODE. Past Medical History Past Medical History: Atrial Fibrillation, Diabetes Mellitus, Hyperlipidemia, Hypertension, Thyroid Disorder Additional Past Medical History / Comment(s): Neuropathy, skin cancer in nose, gout History of Any Multi-Drug Resistant Organisms: None Reported Past Surgical History: Section, Orthopedic Surgery Additional Past Surgical History / Comment(s): ulnar nerve surgery Past Anesthesia/Blood Transfusion Reactions: No Reported Reaction Past Psychological History: No Psychological Hx Reported Past Alcohol Use History: None Reported Past Drug Use History: None Reported Medications and Allergies Home Medications Medication Instructions Recorded Confirmed Type Atorvastatin [Lipitor] 20 mg PO HS 10/05/22 10/28/22 History Cholecalciferol [Vitamin D3 (25 50 mcg PO DAILY 10/05/22 10/28/22 History Mcg = 1000 Iu)] Cyclobenzaprine [Flexeril] 10 mg PO TID PRN 10/05/22 10/28/22 History Digoxin [Digitek] 125 mcg PO SUTUWETHSA 10/05/22 10/28/22 History Digoxin [Digitek] 187.5 mcg PO MOFR 10/05/22 10/28/22 History Famotidine [Pepcid] 20 mg PO Q12H 10/05/22 10/28/22 History Ferrous Sulfate [Iron (65 MG 650 mg PO DAILY 10/05/22 10/28/22 History Elemental)] Levothyroxine Sodium [Synthroid] 175 mcg PO DAILY 10/05/22 10/28/22 History Losartan [Cozaar] 50 mg PO DAILY 10/05/22 10/28/22 History Metoprolol Tartrate [Lopressor] 100 mg PO BID 10/05/22 10/28/22 History [place]-3 Fatty Acids [[place]-3] 1,000 mg PO TID 10/05/22 10/28/22 History Thiamine [Vitamin B-1] 100 mg PO DAILY 10/05/22 10/28/22 History Vit C/E/Zn/Coppr/Lutein/Zeaxan 1 cap PO Q12H 10/05/22 10/28/22 History [Preservision Areds 2 Softgel] allopurinoL 200 mg PO DAILY 10/05/22 10/28/22 History metFORMIN HCL ER [Glucophage XR] 500 mg PO DAILY 10/05/22 10/28/22 History Acetaminophen Tab [Tylenol] 650 mg PO Q6HR PRN tab 10/18/22 10/28/22 Rx Aspirin 81 mg PO DAILY tab 10/18/22 10/28/22 Rx Butalb/APAP/Caff 50-325-40Mg 1 tab PO Q4H PRN #6 tablet 10/18/22 10/28/22 Rx [Fioricet 50-325-40] Doxycycline [Vibramycin] 100 mg PO BID #41 cap 10/18/22 10/28/22 Rx Fluticasone Nasal [place] [Flonase 2 spray EA NOSTRIL DAILY ml 10/18/22 10/28/22 Rx Nasal [place]] Gabapentin [Neurontin] 400 mg PO QID #12 cap 10/18/22 10/28/22 Rx Mag Hydrox/Al Hydrox/Simeth 30 ml PO TID ml 10/18/22 10/28/22 Rx [Maalox] Meclizine [Antivert] 25 mg PO TID PRN tab 10/18/22 10/28/22 Rx Sennosides [Senokot] 8.6 mg PO BID PRN tab 10/18/22 10/28/22 Rx guaiFENesin [Mucinex] 1,200 mg PO Q12HR tab 10/18/22 10/28/22 Rx Apixaban [Eliquis] 5 mg PO Q12H 10/28/22 10/28/22 History Ascorbic Acid [Vitamin C] 500 mg PO DAILY 10/28/22 10/28/22 History HYDROcodone/APAP 5-325MG [[place] 1 tab PO TID PRN 10/28/22 10/28/22 History 5-325] Ondansetron [Zofran] 4 mg PO Q4H PRN 10/28/22 10/28/22 History Zinc Gluconate [Zinc] 50 mg PO DAILY 10/28/22 10/28/22 History predniSONE See Taper PO DIRECTED 10/28/22 10/28/22 History Allergies Allergy/AdvReac Type Severity Reaction Status Date / Time bacitracin Allergy Rash/Hives Verified 10/28/22 15:04 [From Neosporin ([id number])] clarithromycin [From Biaxin] Allergy Rash/Hives Verified 10/28/22 15:04 codeine Allergy Rash/Hives Verified 10/28/22 15:04 neomycin Allergy Rash/Hives Verified 10/28/22 15:04 [From Neosporin ([id number])] polymyxin B Allergy Rash/Hives Verified 10/28/22 15:04 [From Neosporin ([id number])] Physical Exam Vitals: Vital Signs Temp Pulse Resp BP Pulse Ox 10/28/22 16:00 110 H 23 97/51 91 L 10/28/22 15:30 115 H 18 132/50 92 L 10/28/22 15:00 120 H 20 126/56 93 L 10/28/22 14:57 98.3 F 115 H 20 126/56 94 L 10/28/22 14:30 106 H 21 107/93 100 10/28/22 14:00 105 H 20 103/66 98 10/28/22 13:30 110 H 22 111/70 98 10/28/22 13:00 115 H 16 106/69 100 10/28/22 12:30 123 H 21 96/57 98 10/28/22 12:23 112 H 21 125/41 100 10/28/22 12:14 101.3 F H 121 H 20 125/41 98 Intake and Output 10/28/22 10/28/22 10/28/22 06:59 14:59 22:59 Other: Weight 105.687 kg Results CBC & Chem 7: 10/28/22 14:29 10/28/22 14:29 Labs: Abnormal Lab Results - Last 24 Hours (Table) 10/28/22 10/28/22 10/28/22 Range/Units 14:29 14:29 14:29 WBC 26.0 H (3.8-10.6) k/uL RBC 2.31 L (3.80-5.40) m/uL Hgb 8.2 L (11.4-16.0) gm/dL Hct 25.3 L (34.0-46.0) % MCV 109.7 H D (80.0-100.0) fL MCH 35.6 H (25.0-35.0) pg Neutrophils # 24.2 H (1.3-7.7) k/uL Macrocytosis Marked A INR 1.2 H (<1.2) Sodium (137-145) mmol/L Chloride (98-107) mmol/L Carbon Dioxide (22-30) mmol/L BUN (7-17) mg/dL Glucose (74-99) mg/dL Plasma Lactic Acid Adrian (0.7-2.0) mmol/L AST (14-36) U/L Alkaline Phosphatase (38-126) U/L Albumin (3.5-5.0) g/dL Urine Appearance Turbid H (Clear) Urine Protein 2+ H (Negative) Urine Blood Large H (Negative) Ur Leukocyte Esterase Large H (Negative) Urine RBC >182 H (0-5) /hpf Urine WBC >182 H (0-5) /hpf Urine WBC Clumps Many H (None) /hpf Urine Bacteria Moderate H (None) /hpf Urine Mucus Moderate H (None) /hpf Urine Yeast (Budding) Many H (None) /hpf SARS-CoV-2 (PCR) (Not Detectd) 10/28/22 10/28/22 10/28/22 Range/Units 14:29 14:29 14:29 WBC (3.8-10.6) k/uL RBC (3.80-5.40) m/uL Hgb (11.4-16.0) gm/dL Hct (34.0-46.0) % MCV (80.0-100.0) fL MCH (25.0-35.0) pg Neutrophils # (1.3-7.7) k/uL Macrocytosis INR (<1.2) Sodium 132 L (137-145) mmol/L Chloride 92 L (98-107) mmol/L Carbon Dioxide 36 H (22-30) mmol/L BUN 21 H (7-17) mg/dL Glucose 144 H (74-99) mg/dL Plasma Lactic Acid Adrian 3.1 H* (0.7-2.0) mmol/L AST 50 H (14-36) U/L Alkaline Phosphatase 148 H (38-126) U/L Albumin 2.9 L (3.5-5.0) g/dL Urine Appearance (Clear) Urine Protein (Negative) Urine Blood (Negative) Ur Leukocyte Esterase (Negative) Urine RBC (0-5) /hpf Urine WBC (0-5) /hpf Urine WBC Clumps (None) /hpf Urine Bacteria (None) /hpf Urine Mucus (None) /hpf Urine Yeast (Budding) (None) /hpf SARS-CoV-2 (PCR) Detected A (Not Detectd)
[2022-10-28 20:23] LABS: Glucose,Whole Blood 153 mg/dL (70-110)
[2022-10-28] MEDS: GABAPENTIN 400 MG CAP PO SCH (21:20)
[2022-10-28] MEDS: ATORVASTATIN 20 MG TAB PO SCH (21:20)
[2022-10-28] MEDS: APIXABAN 5 MG TAB PO SCH (21:20)
[2022-10-28] MEDS: FAMOTIDINE 20 MG TAB PO SCH (21:20)
[2022-10-28] MEDS: DIGOXIN 125 MCG TAB PO SCH (21:20)
[2022-10-28] MEDS: HYDROcodone/APAP 5-325MG 1 EACH TAB PO PRN (21:26)
[2022-10-28] MEDS ORDERED: MAG HYDROX/AL HYDROX/SIMETH 30 ML CUP PO PRN (22:00)
[2022-10-29] MEDS: CEFEPIME 2 GM in SODIUM CHLORIDE 0.9% 100 ML IVPB SCH ×3 (00:05→16:57)
[2022-10-29] MEDS: VANCOMYCIN 1,750 MG in SODIUM CHLORIDE 0.9% 500 ML 500 ML IVPB SCH ×2 (01:24→12:03)
[2022-10-29] MEDS: ACETAMINOPHEN TAB 325 MG TAB PO PRN ×2 (02:48→21:44)
[2022-10-29] MEDS: METOPROLOL TARTRATE 50 MG TAB PO SCH ×3 (02:48→20:33)
[2022-10-29 05:44] LABS: Glucose,Whole Blood 110 mg/dL (70-110)
[2022-10-29] MEDS: LEVOTHYROXINE 88 MCG TAB PO SCH (06:21)
[2022-10-29] MEDS: FLUTICASONE 50MCG/SPRAY NASAL 16GM EA NOSTRIL SCH (08:21)
[2022-10-29] MEDS: APIXABAN 5 MG TAB PO SCH ×2 (08:21→20:33)
[2022-10-29] MEDS: DIGOXIN 62.5 MCG TAB PO SCH (08:21)
[2022-10-29] MEDS: allopurinoL 100 MG TAB PO SCH (08:21)
[2022-10-29] MEDS: FAMOTIDINE 20 MG TAB PO SCH ×2 (08:21→20:33)
[2022-10-29] MEDS: GABAPENTIN 400 MG CAP PO SCH ×4 (08:21→20:34)
[2022-10-29] MEDS ORDERED: ASPIRIN 81 MG PO SCH (09:00)
[2022-10-29] MEDS ORDERED: metFORMIN 500 MG TAB PO SCH (09:00)
[2022-10-29 09:30] LABS: African American GFR (CKD) 80.8 (60.0-200.0); Albumin 2.4 g/dL (3.8-4.9); Albumin/Globulin Ratio 0.82 (1.60-3.17); Anion Gap 11.8 mmol/L (10.00-18.00); Blood Urea Nitrogen 21.8 mg/dL (9.0-27.0); C Reactive Protein 19.1 mg/dL (0.00-0.80); Calcium 8.6 mg/dL (8.7-10.3); Carbon Dioxide 25.1 mmol/L (20.0-27.5); Globulin 2.9 g/dL (1.6-3.3); Non-African American GFR(CKD) 69.7 (60.0-200.0); Potassium 4.5 mmol/L (3.5-5.5); Total Bilirubin 0.4 mg/dL (0.30-1.20); Total Protein 5.3 g/dL (6.2-8.2)
[2022-10-29 11:16] LABS: Basophils # (A) 0.01 X 10*3/uL (0.00-0.10); Basophils % (A) 0.1 %; Eosinophils # (A) 0.15 X 10*3/uL (0.04-0.35); Eosinophils % (A) 1.2 %; HCT 18.2 % (37.2-46.3); HGB 5.3 g/dL (12.0-15.0); Immature Grans, Automated 0.6 %; Lymphocytes # (A) 1.07 X 10*3/uL (0.90-5.00); Lymphocytes % (A) 8.2 %; MCH 34.4 pg (27.0-32.0); MCHC 29.1 g/dL (32.0-37.0); MCV 118.2 fL (80.0-97.0); Mean Platelet Volume 10.4 fL (9.5-12.2); Monocytes # (A) 0.48 X 10*3/uL (0.20-1.00); Monocytes % (A) 3.7 %; NRBC Per 100 WBC 0 /100 WBCS (0.0-0.0); Neutrophils # (A) 11.19 X 10*3/uL (1.80-7.70); Neutrophils % (A) 86.2 %; Platelet Count 186 X 10*3/uL (140-440); RBC 1.54 X 10*6/uL (4.10-5.20); RDW 15.5 % (11.5-14.5); WBC 12.98 X 10*3/uL (4.50-10.00)
[2022-10-29 11:53] LABS: Glucose,Whole Blood 153 mg/dL (70-110)
--- NOTE | 2022-10-29 14:57 | P.PN ---
Subjective Progress Note Date: 10/29/22 Patient is a very pleasant 67-year-old woman with a medical history of stage IV uterine cancer with metastasis, hypertension, hyperlipidemia, diabetes, iron deficiency anemia, and permanent atrial fibrillation. She was initially hospitalized on 10/05/22 for altered mentation and discharged on 10/18/22. There was concerns for aseptic meningitis given her history of keytruda and lenvima use. Stroke was ruled out with 2 MRI brains. Lumbar puncture was done which showed elevated total protein of 70, normal glucose, elevated total nucleated cells of 45 with predominance of mononuclear white blood cells. ID was consulted, and did not believe findings were consistent with bacterial meningitis. HSV and viral panel CSF was negative. She was also seen by vascular surgery for critical stenosis of the right ICA, recommended outpatient follow-up. She was initiated on Keppra for seizure prophylaxis by [facility]. She completed multiple days of Zosyn IV for presumed pneumonia which was transitioned to Augmentin. HIV and treponema were both nonreactive. Lyme screening IgG and IgM was positive at 2.05. Augmentin discontinued at that time and patient started on doxycycline 100 mg twice daily to complete a three-week course and follow up outpatient with ID. She was subsequently discharged to SNF. Patient presents back to the ED from SNF for worsening altered mentation, increased work of breathing and worsening tachycardia. Of note, patient was diagnosed with COVID-19 at SNF. In the ED, T-max was 101.3 Fahrenheit. She was tachycardic with heart rate in the 120s. Vital signs were otherwise stable. CBC showed leukocytosis of 26 with hemoglobin of 8.2 and MCV of 109.7. INR was 1.2. CMP showed sodium of 132, chloride of 92, bicarb of 36, BUN of 21, glucose 144, AST of 50 and alkaline phosphatase of 148. Lactic acid was 3.1. Ammonia was negative. Troponin was less than 0.012. BNP was 3310 chest x-ray show cardiomegaly with small left-sided pleural effusion or fluid collection and associated left lower lobe acute infiltrate/atelectasis. Brain CT was negative for acute finding. COVID-19 was positive. Influenza flu negative. Urinalysis showed large blood, large leukocyte esterase with moderate bacteria, moderate mucus and many yeast. Patient is admitted for sepsis with infectious disease consultation. Patient was seen and examined this morning. No acute events overnight. Patient reports slight improvement in her suprapubic discomfort. She continues to complain of dry cough and shortness of breath. General: non toxic, no distress, appears at stated age Derm: warm, dry Head: atraumatic, normocephalic, symmetric Eyes: EOMI, no lid lag, anicteric sclera Mouth: no lip lesion, mucus membranes moist Cardiovascular: Irregularly irregular, no murmur Lungs: Decreased BS bilateral, no rhonchi, no rales , no accessory muscle use Abdominal: soft, suprapubic tenderness, no guarding, no appreciable organomegaly Ext: no gross muscle atrophy, no edema, no contractures Neuro: no focal neuro deficits Psych: Alert, oriented x 2-3 #Sepsis with gram-negative bacteremia #Urinary tract infection #COVID-19 pneumonia #Acute metabolic encephalopathy likely related to above #Acute hypoxic respiratory failure #Macrocytic anemia Chronic conditions: stage IV uterine cancer with metastasis, hypertension, hyperlipidemia, diabetes, iron deficiency anemia, and permanent atrial fibrillation Based on my assessment of this patient, this patient meets a high complexity level of care. I have reviewed the following storage consultant notes: None. I have reviewed the results of the following tests: CBC showed leukocytosis of 12.98, hemoglobin of 5.3 with MCV of 118.2. D-dimer is elevated at 2.38. CMP shows glucose 120, calcium of 8.6, AST of 45. CRP elevated at 19.1. Pro-calcitonin elevated at 1.65. Repeat lactic acid 1.3. Blood culture shows gram-negative rods. I have ordered the following tests: CT chest ordered to rule out PE. Blood culture final which is pending. Urine culture which is pending. CBC for tomorrow morning. (Acute drop in hemoglobin) BMP for tomorrow morning. (Vancomycin is nephrotoxic) I have discussed the care of this patient with the following independent historian: None. I have independently interpreted the following test below: None. I have discussed the management of this patient with the following physician: None. This patient has a high risk of morbidity due to the following reasons: Patient has an acute diagnosis of sepsis likely related to UTI and COVID-19 pneumonia that poses a threat to life or bodily function. Patient will be continued on vancomycin 1750 mg IV twice a day and cefepime 2 g IV 3 times a day for broad-spectrum antibiotic coverage. Telemetry monitoring will be ordered. Blood culture positive for gram-negative rods. Urine culture is pending. She will be hydrated with normal saline at 130 mL per hour. Infectious disease will be consulted for further management of this patient. Given her elevated d-dimer 2.38 along with her oxygen requirements of 5 L nasal cannula, CTA chest with ordered to rule out PE. Unlikely given that she is on anticoagulation. Her hemoglobin has dropped to 5.3 this morning. This is likely dilutional given her WBC count and platelet count has also dropped as well. She'll be transfused 2 units PRBC. Eliquis for DVT prophylaxis. Patient would like to be NO CODE. Objective - Vital Signs Vital signs: Vital Signs Temp 98.5 F 10/29/22 13:21 Pulse 70 10/29/22 13:21 Resp 17 10/29/22 13:21 BP 129/75 10/29/22 13:21 Pulse Ox 100 10/29/22 13:21 FiO2 Intake & Output 10/28/22 10/29/22 10/29/22 18:59 06:59 18:59 Intake Total 240 240 Output Total 1000 Balance -760 240 Weight 105.687 kg Intake: Oral 240 240 Output: Urine 1000 Uretheral (Bryant) 100 Other: Voiding Method Indwelling Catheter Indwelling Catheter - Labs CBC & Chem 7: 10/29/22 05:57 10/29/22 05:57 Labs: Abnormal Lab Results - Last 24 Hours (Table) 10/28/22 10/28/22 10/28/22 Range/Units 14:29 14:29 14:29 WBC 26.0 H (3.8-10.6) k/uL RBC 2.31 L (3.80-5.40) m/uL Hgb 8.2 L (11.4-16.0) gm/dL Hct 25.3 L (34.0-46.0) % MCV 109.7 H D (80.0-100.0) fL MCH 35.6 H (25.0-35.0) pg MCHC (32.0-37.0) g/dL RDW (11.5-14.5) % Immature Gran # (0.00-0.04) X 10*3/uL Neutrophils # 24.2 H (1.3-7.7) k/uL Macrocytosis Marked A INR 1.2 H (<1.2) D-Dimer (<0.60) mg/L FEU Sodium (137-145) mmol/L Chloride (98-107) mmol/L Carbon Dioxide (22-30) mmol/L BUN (7-17) mg/dL BUN/Creatinine Ratio (12.00-20.00) Ratio Glucose (74-99) mg/dL POC Glucose (mg/dL) (70-110) mg/dL Plasma Lactic Acid Adrian (0.7-2.0) mmol/L Calcium (8.7-10.3) mg/dL AST (14-36) U/L Alkaline Phosphatase (38-126) U/L C-Reactive Protein (0.00-0.80) mg/dL Total Protein (6.2-8.2) g/dL Albumin (3.5-5.0) g/dL Albumin/Globulin Ratio (1.60-3.17) g/dL Procalcitonin (0.02-0.09) ng/mL Urine Appearance Turbid H (Clear) Urine Protein 2+ H (Negative) Urine Blood Large H (Negative) Ur Leukocyte Esterase Large H (Negative) Urine RBC >182 H (0-5) /hpf Urine WBC >182 H (0-5) /hpf Urine WBC Clumps Many H (None) /hpf Urine Bacteria Moderate H (None) /hpf Urine Mucus Moderate H (None) /hpf Urine Yeast (Budding) Many H (None) /hpf SARS-CoV-2 (PCR) (Not Detectd) 10/28/22 10/28/22 10/28/22 Range/Units 14:29 14:29 14:29 WBC (3.8-10.6) k/uL RBC (3.80-5.40) m/uL Hgb (11.4-16.0) gm/dL Hct (34.0-46.0) % MCV (80.0-100.0) fL MCH (25.0-35.0) pg MCHC (32.0-37.0) g/dL RDW (11.5-14.5) % Immature Gran # (0.00-0.04) X 10*3/uL Neutrophils # (1.3-7.7) k/uL Macrocytosis INR (<1.2) D-Dimer (<0.60) mg/L FEU Sodium 132 L (137-145) mmol/L Chloride 92 L (98-107) mmol/L Carbon Dioxide 36 H (22-30) mmol/L BUN 21 H (7-17) mg/dL BUN/Creatinine Ratio (12.00-20.00) Ratio Glucose 144 H (74-99) mg/dL POC Glucose (mg/dL) (70-110) mg/dL Plasma Lactic Acid Adrian 3.1 H* (0.7-2.0) mmol/L Calcium (8.7-10.3) mg/dL AST 50 H (14-36) U/L Alkaline Phosphatase 148 H (38-126) U/L C-Reactive Protein (0.00-0.80) mg/dL Total Protein (6.2-8.2) g/dL Albumin 2.9 L (3.5-5.0) g/dL Albumin/Globulin Ratio (1.60-3.17) g/dL Procalcitonin (0.02-0.09) ng/mL Urine Appearance (Clear) Urine Protein (Negative) Urine Blood (Negative) Ur Leukocyte Esterase (Negative) Urine RBC (0-5) /hpf Urine WBC (0-5) /hpf Urine WBC Clumps (None) /hpf Urine Bacteria (None) /hpf Urine Mucus (None) /hpf Urine Yeast (Budding) (None) /hpf SARS-CoV-2 (PCR) Detected A (Not Detectd) 10/28/22 10/28/22 10/28/22 Range/Units 17:58 20:21 21:04 WBC (3.8-10.6) k/uL RBC (3.80-5.40) m/uL Hgb (11.4-16.0) gm/dL Hct (34.0-46.0) % MCV (80.0-100.0) fL MCH (25.0-35.0) pg MCHC (32.0-37.0) g/dL RDW (11.5-14.5) % Immature Gran # (0.00-0.04) X 10*3/uL Neutrophils # (1.3-7.7) k/uL Macrocytosis INR (<1.2) D-Dimer (<0.60) mg/L FEU Sodium (137-145) mmol/L Chloride (98-107) mmol/L Carbon Dioxide (22-30) mmol/L BUN (7-17) mg/dL BUN/Creatinine Ratio (12.00-20.00) Ratio Glucose (74-99) mg/dL POC Glucose (mg/dL) 153 H (70-110) mg/dL Plasma Lactic Acid Adrian 2.1 H* 3.0 H* (0.7-2.0) mmol/L Calcium (8.7-10.3) mg/dL AST (14-36) U/L Alkaline Phosphatase (38-126) U/L C-Reactive Protein (0.00-0.80) mg/dL Total Protein (6.2-8.2) g/dL Albumin (3.5-5.0) g/dL Albumin/Globulin Ratio (1.60-3.17) g/dL Procalcitonin (0.02-0.09) ng/mL Urine Appearance (Clear) Urine Protein (Negative) Urine Blood (Negative) Ur Leukocyte Esterase (Negative) Urine RBC (0-5) /hpf Urine WBC (0-5) /hpf Urine WBC Clumps (None) /hpf Urine Bacteria (None) /hpf Urine Mucus (None) /hpf Urine Yeast (Budding) (None) /hpf SARS-CoV-2 (PCR) (Not Detectd) 10/29/22 10/29/22 10/29/22 Range/Units 05:57 05:57 05:57 WBC (3.8-10.6) k/uL RBC (3.80-5.40) m/uL Hgb (11.4-16.0) gm/dL Hct (34.0-46.0) % MCV (80.0-100.0) fL MCH (25.0-35.0) pg MCHC (32.0-37.0) g/dL RDW (11.5-14.5) % Immature Gran # (0.00-0.04) X 10*3/uL Neutrophils # (1.3-7.7) k/uL Macrocytosis INR (<1.2) D-Dimer 2.38 H (<0.60) mg/L FEU Sodium (137-145) mmol/L Chloride (98-107) mmol/L Carbon Dioxide (22-30) mmol/L BUN (7-17) mg/dL BUN/Creatinine Ratio 25.00 H (12.00-20.00) Ratio Glucose 120 H (74-99) mg/dL POC Glucose (mg/dL) (70-110) mg/dL Plasma Lactic Acid Adrian (0.7-2.0) mmol/L Calcium 8.6 L (8.7-10.3) mg/dL AST 45 H (14-36) U/L Alkaline Phosphatase (38-126) U/L C-Reactive Protein 19.10 H (0.00-0.80) mg/dL Total Protein 5.3 L (6.2-8.2) g/dL Albumin 2.4 L (3.5-5.0) g/dL Albumin/Globulin Ratio 0.82 L (1.60-3.17) g/dL Procalcitonin 1.65 H (0.02-0.09) ng/mL Urine Appearance (Clear) Urine Protein (Negative) Urine Blood (Negative) Ur Leukocyte Esterase (Negative) Urine RBC (0-5) /hpf Urine WBC (0-5) /hpf Urine WBC Clumps (None) /hpf Urine Bacteria (None) /hpf Urine Mucus (None) /hpf Urine Yeast (Budding) (None) /hpf SARS-CoV-2 (PCR) (Not Detectd) 10/29/22 10/29/22 10/29/22 Range/Units 05:57 05:57 11:52 WBC 12.98 H (3.8-10.6) k/uL RBC 1.54 L (3.80-5.40) m/uL Hgb 5.3 L* (11.4-16.0) gm/dL Hct 18.2 L* (34.0-46.0) % MCV 118.2 H (80.0-100.0) fL MCH 34.4 H (25.0-35.0) pg MCHC 29.1 L (32.0-37.0) g/dL RDW 15.5 H (11.5-14.5) % Immature Gran # 0.08 H (0.00-0.04) X 10*3/uL Neutrophils # 11.19 H (1.3-7.7) k/uL Macrocytosis INR (<1.2) D-Dimer (<0.60) mg/L FEU Sodium (137-145) mmol/L Chloride (98-107) mmol/L Carbon Dioxide (22-30) mmol/L BUN (7-17) mg/dL BUN/Creatinine Ratio (12.00-20.00) Ratio Glucose (74-99) mg/dL POC Glucose (mg/dL) 153 H (70-110) mg/dL Plasma Lactic Acid Adrian 3.0 H* (0.7-2.0) mmol/L Calcium (8.7-10.3) mg/dL AST (14-36) U/L Alkaline Phosphatase (38-126) U/L C-Reactive Protein (0.00-0.80) mg/dL Total Protein (6.2-8.2) g/dL Albumin (3.5-5.0) g/dL Albumin/Globulin Ratio (1.60-3.17) g/dL Procalcitonin (0.02-0.09) ng/mL Urine Appearance (Clear) Urine Protein (Negative) Urine Blood (Negative) Ur Leukocyte Esterase (Negative) Urine RBC (0-5) /hpf Urine WBC (0-5) /hpf Urine WBC Clumps (None) /hpf Urine Bacteria (None) /hpf Urine Mucus (None) /hpf Urine Yeast (Budding) (None) /hpf SARS-CoV-2 (PCR) (Not Detectd) Microbiology - Last 24 Hours (Table) 10/28/22 14:15 Blood Culture Gram Stain - Preliminary Blood 10/28/22 14:15 Blood Culture - Final Blood 10/28/22 14:29 Urine Culture - Preliminary Urine,Voided
--- NOTE | 2022-10-29 16:16 | CT ---
EXAMINATION TYPE: CT chest angio for PE DATE OF EXAM: 10/29/2022 COMPARISON: 07/01/2022 HISTORY: 67-year-old female SOB and r/o PE. COVID + TECHNIQUE: Contiguous axial scanning of the chest performed with IV Contrast, patient injected with 7 2 mL of Isovue 370. Coronal and sagittal MIP reconstructions performed. CT DLP: 409.3 mGycm Automated exposure control for dose reduction was used. FINDINGS: The heart is upper limits of normal in size without pericardial effusion. No flattening of the interv entricular septum or reflux of contrast into the hepatic veins. LAD coronary artery calcifications ar e present. Ectatic ascending aorta 3.9 cm. Mild atherosclerotic arch calcifications with convexity towards vesse l branching anatomy. Mildly enlarged caliber to the main right and left pulmonary arteries measuring up to 2.6 cm suggesti ng underlying pulmonary arterial hypertension. While there is satisfactory opacification of the pulmo nary arterial system, there is extensive breathing motion limiting the evaluation. No large central p ulmonary embolus is seen. Many of the smaller distal arterial branches are limited to nondiagnostic. However, there is extensive lobar, segmental, and more distal arterial branch emboli in the left lowe r lobe and a small amount which extends into the lingular lobar branch. There is a new bilobed nodule at the medial left apex measuring 2.7 x 1.6 cm. Adjacent suspicious 9 m m left upper lobe nodule, axial image 44. Some tree-in-bud opacities are present at the left base eleno g with additional left lower lobe nodules measuring up to 1.1 cm. There is a [id number] left p leural effusion with some adjacent airspace opacity. No thoracic lymphadenopathy with CT size criteria. The previously enlarged left axillary lymph node i s no longer seen. Query any interval lymph node biopsy. Visualized upper abdomen shows nodular hepatic contour that could reflect cirrhosis. Moderate degenerative disc disease mid to lower thoracic spine. IMPRESSION: 1. OCCLUSIVE PE LOBAR, SEGMENTAL, AND MORE DISTAL BRANCHES OF THE LEFT LOWER LOBE. MODERATE OVERALL B URDEN ON THE LEFT. NO CT FINDINGS OF RIGHT HEART STRAIN. 2. SMALL LEFT PLEURAL EFFUSION AND AIRSPACE DISEASE AT THE LEFT BASE. FINDINGS COULD REPRESENT PNEUMO NAE OR DEVELOPING PULMONARY INFARCT SECONDARY TO THE EMBOLI. CLINICALLY CORRELATE. 3. A NUMBER OF NEW PULMONARY NODULES LEFT UPPER LOBE AND LEFT BASE MEASURING UP TO 2.7 CM. METASTATIC DISEASE SHOULD BE EXCLUDED. We note that the previously mentioned 1.6 cm left axillary node is no lo nger identified. Query any interval node biopsy. 3. Suspect underlying pulmonary arterial hypertension. 4. Query any known diagnosis of cirrhosis. Critical findings called to Nurse Elizabeth on 4SSUR at 4:13pm.
[2022-10-29 16:32] LABS: Glucose,Whole Blood 182 mg/dL (70-110)
[2022-10-29] MEDS: HYDROcodone/APAP 5-325MG 1 EACH TAB PO PRN (20:32)
[2022-10-29] MEDS: ATORVASTATIN 20 MG TAB PO SCH (20:33)
[2022-10-29] MEDS: BENZONATATE 100 MG CAP PO PRN (20:33)
[2022-10-29 21:28] LABS: Glucose,Whole Blood 150 mg/dL (70-110)
[2022-10-29] MEDS ORDERED: ONDANSETRON 4 MG/2 ML VIAL IVP PRN (21:31)
--- NOTE | 2022-10-29 21:56 | P.PN ---
Progress Note - Text Progress Note Date: 10/29/22 Notified by the RN that the patient has been experiencing vaginal bleeding since admission in setting of stage 4 uterine cancer which appears to have worsened tonight as per the nurses aide who helped change her. 2 U of pRBCs were ordered for tonight. The patient continues to be on Eliquis. Furthermore, CTA chest also revealed pulmonary emboli for which Pulmonary medicine was consulted. The patient already received her nightly dose of Eliquis. Will hold the AM dose of Eliquis and ASA 81 mg for now and consult [facility]. Patient will need risk stratification for resumption of anticoagulation in setting of severe blood loss anemia with pulmonary emboli.
--- NOTE | 2022-10-29 22:22 | P.CONS ---
History of Present Illness - Reason for Consult Consult date: 10/29/22 Covid infection, sepsis Requesting physician: Nathan Gracia - Chief Complaint Mental status changes and shortness of breath x one day - History of Present Illness Patient is a 67-year-old female with a past medical history significant for stage IV uterine cancer hypertension hyperlipidemia atrial fibrillation and diabetes mellitus the patient was recently admitted to this hospital treated for altered mentation with a question of possible aseptic meningitis and was subsequently discharged to the local alf about 10 days ago patient presenting back to the hospital yesterday morning for evaluation of mental status changes increased work of breathing and tachycardia patient was recently diagnosed with COVID-19 at the [facility] on presentation to the hospital patient did have a fever of 101.3 degrees for night however overall fever pattern has improved this morning patient was mildly hypoxic and is currently on 2 L nasal cannula patient also noticed to have a white count of 26,000 repeat is noted 4.98 however the patient does have significant drop in hemoglobin to 5.3 did have elevated lactic acid kidney function has been normal liver enzymes are normal procalcitonin elevated 1.65 did have a positive UA COVID testing positive influenza RSV was negative patient did have blood cultures drawn came back positive with gram-negative bacilli patient did have a chest x-ray cardiomegaly with small left effusion or fluid collection and an associated left lower lobe infiltrate patient is currently on a combination of cefepime and vancomycin infectious disease was consulted for further management of antibiotic therapy most of the information has been obtained from review the chart talking nursing staff the patient is currently minimally responsive and cannot provide any history no vomiting or diarrhea has been reported Review of Systems Positive point has been mentioned in the HPI rest of the systems are negative Past Medical History Past Medical History: Atrial Fibrillation, Diabetes Mellitus, Hyperlipidemia, Hypertension, Thyroid Disorder Additional Past Medical History / Comment(s): Neuropathy, skin cancer in nose, gout History of Any Multi-Drug Resistant Organisms: None Reported Past Surgical History: Section, Orthopedic Surgery Additional Past Surgical History / Comment(s): ulnar nerve surgery Past Anesthesia/Blood Transfusion Reactions: No Reported Reaction Past Psychological History: No Psychological Hx Reported Past Alcohol Use History: None Reported Past Drug Use History: None Reported Medications and Allergies Home Medications Medication Instructions Recorded Confirmed Type Cyclobenzaprine [Flexeril] 10 mg PO TID PRN 10/05/22 10/28/22 History Famotidine [Pepcid] 20 mg PO Q12H 10/05/22 10/28/22 History Metoprolol Tartrate [Lopressor] 100 mg PO BID 10/05/22 10/28/22 History Acetaminophen Tab [Tylenol] 650 mg PO Q6HR PRN tab 10/18/22 10/28/22 Rx Gabapentin [Neurontin] 400 mg PO QID #12 cap 10/18/22 10/28/22 Rx Mag Hydrox/Al Hydrox/Simeth 30 ml PO TID ml 10/18/22 10/28/22 Rx [Maalox] Sennosides [Senokot] 8.6 mg PO BID PRN tab 10/18/22 10/28/22 Rx guaiFENesin [Mucinex] 1,200 mg PO Q12HR tab 10/18/22 10/28/22 Rx HYDROcodone/APAP 5-325MG [[place] 1 tab PO TID PRN 10/28/22 10/28/22 History 5-325] Ondansetron [Zofran] 4 mg PO Q4H PRN 10/28/22 10/28/22 History Benzonatate [Tessalon Perles] 200 mg PO TID PRN #30 cap 11/05/22 Rx Allergies Allergy/AdvReac Type Severity Reaction Status Date / Time bacitracin Allergy Rash/Hives Verified 10/28/22 15:04 [From Neosporin ([id number])] clarithromycin [From Biaxin] Allergy Rash/Hives Verified 10/28/22 15:04 codeine Allergy Rash/Hives Verified 10/28/22 15:04 neomycin Allergy Rash/Hives Verified 10/28/22 15:04 [From Neosporin ([id number])] polymyxin B Allergy Rash/Hives Verified 10/28/22 15:04 [From Neosporin ([id number])] Physical Exam Vitals: Vital Signs Temp Pulse Pulse Pulse Resp BP BP 10/29/22 07:45 74 16 10/29/22 07:15 99.0 F 74 16 113/64 10/29/22 02:28 98.8 F 111 H 20 128/98 10/28/22 20:16 98.0 F 81 16 99/54 10/28/22 19:30 81 10/28/22 18:22 97.5 F L 116 H 24 60/28 10/28/22 16:00 110 H 23 97/51 10/28/22 15:30 115 H 18 132/50 10/28/22 15:00 120 H 20 126/56 10/28/22 14:57 98.3 F 115 H 20 126/56 10/28/22 14:30 106 H 21 107/93 10/28/22 14:00 105 H 20 103/66 10/28/22 13:30 110 H 22 111/70 10/28/22 13:00 115 H 16 106/69 10/28/22 12:30 123 H 21 96/57 10/28/22 12:23 112 H 21 125/41 10/28/22 12:14 101.3 F H 121 H 20 125/41 Pulse Ox 10/29/22 07:45 10/29/22 07:15 98 10/29/22 02:28 100 10/28/22 20:16 96 10/28/22 19:30 10/28/22 18:22 116 H 10/28/22 16:00 91 L 10/28/22 15:30 92 L 10/28/22 15:00 93 L 10/28/22 14:57 94 L 10/28/22 14:30 100 10/28/22 14:00 98 10/28/22 13:30 98 10/28/22 13:00 100 10/28/22 12:30 98 10/28/22 12:23 100 10/28/22 12:14 98 Intake and Output 10/28/22 10/29/22 10/29/22 22:59 06:59 14:59 Intake Total 240 240 Output Total 1000 Balance -760 240 Intake: Oral 240 240 Output: Urine 1000 Uretheral (Bryant) 100 Other: Voiding Method Indwelling Catheter Indwelling Catheter Weight 105.687 kg GENERAL DESCRIPTION: Elderly female lying in bed, no distress. No tachypnea or accessory muscle of respiration use. HEENT: Shows Pallor , no scleral icterus. Oral mucous membrane is dry. NECK: Trachea central, no thyromegaly. LUNGS: Unlabored breathing. Decreased breath sounds at the base HEART: S1, S2, regular rate and rhythm. No loud murmur ABDOMEN: Soft, mild distention and tenderness EXTREMITIES: No edema of feet. SKIN: No rash, no masses palpable. NEUROLOGICAL: The patient is awake, alert, oriented x3, mood and affect normal. Results CBC & Chem 7: 11/04/22 06:12 11/04/22 06:12 Labs: Abnormal Lab Results - Last 24 Hours (Table) 10/28/22 10/28/22 10/28/22 Range/Units 14:29 14:29 14:29 WBC 26.0 H (3.8-10.6) k/uL RBC 2.31 L (3.80-5.40) m/uL Hgb 8.2 L (11.4-16.0) gm/dL Hct 25.3 L (34.0-46.0) % MCV 109.7 H D (80.0-100.0) fL MCH 35.6 H (25.0-35.0) pg MCHC (32.0-37.0) g/dL RDW (11.5-14.5) % Immature Gran # (0.00-0.04) X 10*3/uL Neutrophils # 24.2 H (1.3-7.7) k/uL Macrocytosis Marked A INR 1.2 H (<1.2) D-Dimer (<0.60) mg/L FEU Sodium (137-145) mmol/L Chloride (98-107) mmol/L Carbon Dioxide (22-30) mmol/L BUN (7-17) mg/dL BUN/Creatinine Ratio (12.00-20.00) Ratio Glucose (74-99) mg/dL POC Glucose (mg/dL) (70-110) mg/dL Plasma Lactic Acid Adrian (0.7-2.0) mmol/L Calcium (8.7-10.3) mg/dL AST (14-36) U/L Alkaline Phosphatase (38-126) U/L C-Reactive Protein (0.00-0.80) mg/dL Total Protein (6.2-8.2) g/dL Albumin (3.5-5.0) g/dL Albumin/Globulin Ratio (1.60-3.17) g/dL Procalcitonin (0.02-0.09) ng/mL Urine Appearance Turbid H (Clear) Urine Protein 2+ H (Negative) Urine Blood Large H (Negative) Ur Leukocyte Esterase Large H (Negative) Urine RBC >182 H (0-5) /hpf Urine WBC >182 H (0-5) /hpf Urine WBC Clumps Many H (None) /hpf Urine Bacteria Moderate H (None) /hpf Urine Mucus Moderate H (None) /hpf Urine Yeast (Budding) Many H (None) /hpf SARS-CoV-2 (PCR) (Not Detectd) 10/28/22 10/28/22 10/28/22 Range/Units 14:29 14:29 14:29 WBC (3.8-10.6) k/uL RBC (3.80-5.40) m/uL Hgb (11.4-16.0) gm/dL Hct (34.0-46.0) % MCV (80.0-100.0) fL MCH (25.0-35.0) pg MCHC (32.0-37.0) g/dL RDW (11.5-14.5) % Immature Gran # (0.00-0.04) X 10*3/uL Neutrophils # (1.3-7.7) k/uL Macrocytosis INR (<1.2) D-Dimer (<0.60) mg/L FEU Sodium 132 L (137-145) mmol/L Chloride 92 L (98-107) mmol/L Carbon Dioxide 36 H (22-30) mmol/L BUN 21 H (7-17) mg/dL BUN/Creatinine Ratio (12.00-20.00) Ratio Glucose 144 H (74-99) mg/dL POC Glucose (mg/dL) (70-110) mg/dL Plasma Lactic Acid Adrian 3.1 H* (0.7-2.0) mmol/L Calcium (8.7-10.3) mg/dL AST 50 H (14-36) U/L Alkaline Phosphatase 148 H (38-126) U/L C-Reactive Protein (0.00-0.80) mg/dL Total Protein (6.2-8.2) g/dL Albumin 2.9 L (3.5-5.0) g/dL Albumin/Globulin Ratio (1.60-3.17) g/dL Procalcitonin (0.02-0.09) ng/mL Urine Appearance (Clear) Urine Protein (Negative) Urine Blood (Negative) Ur Leukocyte Esterase (Negative) Urine RBC (0-5) /hpf Urine WBC (0-5) /hpf Urine WBC Clumps (None) /hpf Urine Bacteria (None) /hpf Urine Mucus (None) /hpf Urine Yeast (Budding) (None) /hpf SARS-CoV-2 (PCR) Detected A (Not Detectd) 10/28/22 10/28/22 10/28/22 Range/Units 17:58 20:21 21:04 WBC (3.8-10.6) k/uL RBC (3.80-5.40) m/uL Hgb (11.4-16.0) gm/dL Hct (34.0-46.0) % MCV (80.0-100.0) fL MCH (25.0-35.0) pg MCHC (32.0-37.0) g/dL RDW (11.5-14.5) % Immature Gran # (0.00-0.04) X 10*3/uL Neutrophils # (1.3-7.7) k/uL Macrocytosis INR (<1.2) D-Dimer (<0.60) mg/L FEU Sodium (137-145) mmol/L Chloride (98-107) mmol/L Carbon Dioxide (22-30) mmol/L BUN (7-17) mg/dL BUN/Creatinine Ratio (12.00-20.00) Ratio Glucose (74-99) mg/dL POC Glucose (mg/dL) 153 H (70-110) mg/dL Plasma Lactic Acid Adrian 2.1 H* 3.0 H* (0.7-2.0) mmol/L Calcium (8.7-10.3) mg/dL AST (14-36) U/L Alkaline Phosphatase (38-126) U/L C-Reactive Protein (0.00-0.80) mg/dL Total Protein (6.2-8.2) g/dL Albumin (3.5-5.0) g/dL Albumin/Globulin Ratio (1.60-3.17) g/dL Procalcitonin (0.02-0.09) ng/mL Urine Appearance (Clear) Urine Protein (Negative) Urine Blood (Negative) Ur Leukocyte Esterase (Negative) Urine RBC (0-5) /hpf Urine WBC (0-5) /hpf Urine WBC Clumps (None) /hpf Urine Bacteria (None) /hpf Urine Mucus (None) /hpf Urine Yeast (Budding) (None) /hpf SARS-CoV-2 (PCR) (Not Detectd) 10/29/22 10/29/22 10/29/22 Range/Units 05:57 05:57 05:57 WBC (3.8-10.6) k/uL RBC (3.80-5.40) m/uL Hgb (11.4-16.0) gm/dL Hct (34.0-46.0) % MCV (80.0-100.0) fL MCH (25.0-35.0) pg MCHC (32.0-37.0) g/dL RDW (11.5-14.5) % Immature Gran # (0.00-0.04) X 10*3/uL Neutrophils # (1.3-7.7) k/uL Macrocytosis INR (<1.2) D-Dimer 2.38 H (<0.60) mg/L FEU Sodium (137-145) mmol/L Chloride (98-107) mmol/L Carbon Dioxide (22-30) mmol/L BUN (7-17) mg/dL BUN/Creatinine Ratio 25.00 H (12.00-20.00) Ratio Glucose 120 H (74-99) mg/dL POC Glucose (mg/dL) (70-110) mg/dL Plasma Lactic Acid Adrian (0.7-2.0) mmol/L Calcium 8.6 L (8.7-10.3) mg/dL AST 45 H (14-36) U/L Alkaline Phosphatase (38-126) U/L C-Reactive Protein 19.10 H (0.00-0.80) mg/dL Total Protein 5.3 L (6.2-8.2) g/dL Albumin 2.4 L (3.5-5.0) g/dL Albumin/Globulin Ratio 0.82 L (1.60-3.17) g/dL Procalcitonin 1.65 H (0.02-0.09) ng/mL Urine Appearance (Clear) Urine Protein (Negative) Urine Blood (Negative) Ur Leukocyte Esterase (Negative) Urine RBC (0-5) /hpf Urine WBC (0-5) /hpf Urine WBC Clumps (None) /hpf Urine Bacteria (None) /hpf Urine Mucus (None) /hpf Urine Yeast (Budding) (None) /hpf SARS-CoV-2 (PCR) (Not Detectd) 10/29/22 10/29/22 Range/Units 05:57 05:57 WBC 12.98 H (3.8-10.6) k/uL RBC 1.54 L (3.80-5.40) m/uL Hgb 5.3 L* (11.4-16.0) gm/dL Hct 18.2 L* (34.0-46.0) % MCV 118.2 H (80.0-100.0) fL MCH 34.4 H (25.0-35.0) pg MCHC 29.1 L (32.0-37.0) g/dL RDW 15.5 H (11.5-14.5) % Immature Gran # 0.08 H (0.00-0.04) X 10*3/uL Neutrophils # 11.19 H (1.3-7.7) k/uL Macrocytosis INR (<1.2) D-Dimer (<0.60) mg/L FEU Sodium (137-145) mmol/L Chloride (98-107) mmol/L Carbon Dioxide (22-30) mmol/L BUN (7-17) mg/dL BUN/Creatinine Ratio (12.00-20.00) Ratio Glucose (74-99) mg/dL POC Glucose (mg/dL) (70-110) mg/dL Plasma Lactic Acid Adrian 3.0 H* (0.7-2.0) mmol/L Calcium (8.7-10.3) mg/dL AST (14-36) U/L Alkaline Phosphatase (38-126) U/L C-Reactive Protein (0.00-0.80) mg/dL Total Protein (6.2-8.2) g/dL Albumin (3.5-5.0) g/dL Albumin/Globulin Ratio (1.60-3.17) g/dL Procalcitonin (0.02-0.09) ng/mL Urine Appearance (Clear) Urine Protein (Negative) Urine Blood (Negative) Ur Leukocyte Esterase (Negative) Urine RBC (0-5) /hpf Urine WBC (0-5) /hpf Urine WBC Clumps (None) /hpf Urine Bacteria (None) /hpf Urine Mucus (None) /hpf Urine Yeast (Budding) (None) /hpf SARS-CoV-2 (PCR) (Not Detectd) Microbiology - Last 24 Hours (Table) 10/28/22 14:15 Blood Culture Gram Stain - Preliminary Blood 10/28/22 14:15 Blood Culture - Final Blood 10/28/22 14:29 Urine Culture - Preliminary Urine,Voided Assessment and Plan (1) COVID-19 virus infection Status: Acute Priority: High Code(s): U07.1 - COVID-19 SNOMED Code(s): 062586583 (2) Leukocytosis Status: Acute Code(s): D72.829 - ELEVATED WHITE BLOOD CELL COUNT, UNSPECIFIED SNOMED Code(s): 373185634 (3) Sepsis Status: Acute Code(s): A41.9 - SEPSIS, UNSPECIFIED ORGANISM SNOMED Code(s): 03251981 Plan: 1patient presented to hospital with sepsis in this patient who did have a fever tachycardia elevated white count elevated lactic acid now with evidence of gram- negative bacteremia source could be likely urinary however the patient also have left lower lobe infiltrate elevated procalcitonin and a possible component of gram-negative pneumonia. 2blood cultures will be repeated document clearance of bacteremia 3-Patient did recently tested positive for COVID-19 at the alf for which treatment will be mostly supportive at this point and hold on adding remdesivir 4-patient to continue with cefepime while waiting for ID sensitivity however discontinue vancomycin We will follow on clinical condition and cultures to further adjust medication if needed Thank you for this consultation we will follow the patient along with you Time with Patient: Greater than 30
[2022-10-30] MEDS: CEFEPIME 2 GM in SODIUM CHLORIDE 0.9% 100 ML IVPB SCH ×2 (02:20→09:10)
[2022-10-30] MEDS: LEVOTHYROXINE 88 MCG TAB PO SCH (05:25)
[2022-10-30] MEDS: BENZONATATE 100 MG CAP PO PRN (05:26)
[2022-10-30] MEDS: HYDROcodone/APAP 5-325MG 1 EACH TAB PO PRN ×3 (05:26→21:34)
[2022-10-30 06:02] LABS: Glucose,Whole Blood 126 mg/dL (70-110)
[2022-10-30 07:08] LABS: African American GFR (CKD) >90 (>60 ml/min/1.73 sqM); Anion Gap 1 mmol/L; Blood Urea Nitrogen 20 mg/dL (7-17); Calcium 8.2 mg/dL (8.4-10.2); Carbon Dioxide 32 mmol/L (22-30); Chloride 100 mmol/L (98-107); Glucose 112 mg/dL (74-99); Non-African American GFR(CKD) >90 (>60 ml/min/1.73 sqM); Sodium 133 mmol/L (137-145)
[2022-10-30 08:02] LABS: Anisocytosis Slight; HCT 27.2 % (34.0-46.0); Hypochromasia Slight; MCH 34.3 pg (25.0-35.0); Macrocytosis Moderate; Mean Platelet Volume 8.2; Platelet Count 151 k/uL (150-450); Poikilocytosis Moderate; RBC 2.62 m/uL (3.80-5.40); RDW 18.2 % (11.5-15.5); WBC 12.3 k/uL (3.8-10.6)
[2022-10-30 08:08] LABS: MCV 103.8 fL (80.0-100.0)
[2022-10-30] MEDS: allopurinoL 100 MG TAB PO SCH (09:11)
[2022-10-30] MEDS: FAMOTIDINE 20 MG TAB PO SCH ×2 (09:11→21:34)
[2022-10-30] MEDS: METOPROLOL TARTRATE 50 MG TAB PO SCH ×2 (09:11→21:35)
[2022-10-30] MEDS: DIGOXIN 125 MCG TAB PO SCH (09:11)
[2022-10-30] MEDS: GABAPENTIN 400 MG CAP PO SCH ×4 (09:11→21:35)
[2022-10-30] MEDS: FLUTICASONE 50MCG/SPRAY NASAL 16GM EA NOSTRIL SCH (09:13)
--- NOTE | 2022-10-30 10:28 | P.OBCN ---
History of Present Illness Consult date: 10/30/22 Reason for consult: other (uterine cancer, vaginal bleeding) Chief complaint: sepsis History of present illness: 67-year-old presented to the hospital with E. coli in her blood. She does have sepsis and was placed on cefepime. She is also currently positive for Covid and has a pulmonary embolism. She does have a history of uterine cancer and had some increased vaginal bleeding yesterday which is was consulted. Patient had been on eliquis but it was held today. Her hemoglobin was 5 when she presented now 9 after 2 units of packed red blood cells. She feels a lot better today and is able to watch TV without out being drowsy. Review of Systems All systems: negative Constitutional: Denies chills, Denies fever Eyes: denies blurred vision, denies pain Ears, nose, mouth and throat: Reports mouth pain (Dry), Denies headache, Denies sore throat Cardiovascular: Reports shortness of breath, Denies chest pain Respiratory: Reports cough Gastrointestinal: Reports abdominal pain, Denies diarrhea, Denies nausea, Denies vomiting Genitourinary: Denies dysuria, Denies hematuria Musculoskeletal: Denies myalgias Integumentary: Denies pruritus, Denies rash Neurological: Reports numbness, Reports weakness Psychiatric: Denies anxiety, Denies depression Endocrine: Denies fatigue, Denies weight change Past Medical History Past Medical History: Atrial Fibrillation, Diabetes Mellitus, Hyperlipidemia, Hypertension, Thyroid Disorder Additional Past Medical History / Comment(s): Neuropathy, skin cancer in nose, gout, stage IV uterine cancer History of Any Multi-Drug Resistant Organisms: None Reported Past Surgical History: Section, Orthopedic Surgery Additional Past Surgical History / Comment(s): ulnar nerve surgery Past Anesthesia/Blood Transfusion Reactions: No Reported Reaction Past Psychological History: No Psychological Hx Reported Past Alcohol Use History: None Reported Past Drug Use History: None Reported Medications and Allergies Home Medications Medication Instructions Recorded Confirmed Type Atorvastatin [Lipitor] 20 mg PO HS 10/05/22 10/28/22 History Cholecalciferol [Vitamin D3 (25 50 mcg PO DAILY 10/05/22 10/28/22 History Mcg = 1000 Iu)] Cyclobenzaprine [Flexeril] 10 mg PO TID PRN 10/05/22 10/28/22 History Digoxin [Digitek] 125 mcg PO SUTUWETHSA 10/05/22 10/28/22 History Digoxin [Digitek] 187.5 mcg PO MOFR 10/05/22 10/28/22 History Famotidine [Pepcid] 20 mg PO Q12H 10/05/22 10/28/22 History Ferrous Sulfate [Iron (65 MG 650 mg PO DAILY 10/05/22 10/28/22 History Elemental)] Levothyroxine Sodium [Synthroid] 175 mcg PO DAILY 10/05/22 10/28/22 History Losartan [Cozaar] 50 mg PO DAILY 10/05/22 10/28/22 History Metoprolol Tartrate [Lopressor] 100 mg PO BID 10/05/22 10/28/22 History [place]-3 Fatty Acids [[place]-3] 1,000 mg PO TID 10/05/22 10/28/22 History Thiamine [Vitamin B-1] 100 mg PO DAILY 10/05/22 10/28/22 History Vit C/E/Zn/Coppr/Lutein/Zeaxan 1 cap PO Q12H 10/05/22 10/28/22 History [Preservision Areds 2 Softgel] allopurinoL 200 mg PO DAILY 10/05/22 10/28/22 History metFORMIN HCL ER [Glucophage XR] 500 mg PO DAILY 10/05/22 10/28/22 History Acetaminophen Tab [Tylenol] 650 mg PO Q6HR PRN tab 10/18/22 10/28/22 Rx Aspirin 81 mg PO DAILY tab 10/18/22 10/28/22 Rx Butalb/APAP/Caff 50-325-40Mg 1 tab PO Q4H PRN #6 tablet 10/18/22 10/28/22 Rx [Fioricet 50-325-40] Doxycycline [Vibramycin] 100 mg PO BID #41 cap 10/18/22 10/28/22 Rx Fluticasone Nasal [place] [Flonase 2 spray EA NOSTRIL DAILY ml 10/18/22 10/28/22 Rx Nasal [place]] Gabapentin [Neurontin] 400 mg PO QID #12 cap 10/18/22 10/28/22 Rx Mag Hydrox/Al Hydrox/Simeth 30 ml PO TID ml 10/18/22 10/28/22 Rx [Maalox] Meclizine [Antivert] 25 mg PO TID PRN tab 10/18/22 10/28/22 Rx Sennosides [Senokot] 8.6 mg PO BID PRN tab 10/18/22 10/28/22 Rx guaiFENesin [Mucinex] 1,200 mg PO Q12HR tab 10/18/22 10/28/22 Rx Apixaban [Eliquis] 5 mg PO Q12H 10/28/22 10/28/22 History Ascorbic Acid [Vitamin C] 500 mg PO DAILY 10/28/22 10/28/22 History HYDROcodone/APAP 5-325MG [[place] 1 tab PO TID PRN 10/28/22 10/28/22 History 5-325] Ondansetron [Zofran] 4 mg PO Q4H PRN 10/28/22 10/28/22 History Zinc Gluconate [Zinc] 50 mg PO DAILY 10/28/22 10/28/22 History predniSONE See Taper PO DIRECTED 10/28/22 10/28/22 History Allergies Allergy/AdvReac Type Severity Reaction Status Date / Time bacitracin Allergy Rash/Hives Verified 10/28/22 15:04 [From Neosporin ([id number])] clarithromycin [From Biaxin] Allergy Rash/Hives Verified 10/28/22 15:04 codeine Allergy Rash/Hives Verified 10/28/22 15:04 neomycin Allergy Rash/Hives Verified 10/28/22 15:04 [From Neosporin ([id number])] polymyxin B Allergy Rash/Hives Verified 10/28/22 15:04 [From Neosporin ([id number])] Exam Osteopathic Statement: *. No significant issues noted on an osteopathic structural exam other than those noted in the History and Physical/Consult. Vital Signs Temp Pulse Pulse Resp BP BP Pulse Ox 10/30/22 09:56 99 10/30/22 07:09 98.7 F 80 15 122/69 100 10/30/22 02:07 97.5 F L 74 16 124/57 10/30/22 01:19 98.0 F 69 16 105/63 100 10/29/22 23:32 98.3 F 76 18 106/62 100 10/29/22 23:12 98.4 F 74 18 109/65 99 10/29/22 23:03 98.7 F 69 20 108/62 99 10/29/22 21:40 100.5 F H 10/29/22 20:00 100.2 F H 87 20 168/79 96 10/29/22 17:16 99.5 F 68 16 145/76 100 10/29/22 16:56 99.5 F 79 15 147/74 99 10/29/22 16:52 99.8 F H 74 15 147/66 10/29/22 13:21 98.5 F 70 17 129/75 100 10/29/22 12:44 100 Intake and Output 10/29/22 10/30/22 10/30/22 22:59 06:59 14:59 Intake Total 275 430 Output Total 600 500 Balance -325 -70 Intake: Oral 120 Blood Product 275 310 Rc As-1 Unit 310 [id number] Rc Pheresis As-3 Unit 275 [id number] Output: Urine 600 500 Uretheral (Bryant) 400 Other: Voiding Method Indwelling Catheter Indwelling Catheter The abdomen is hard throughout the lower abdomen there are tumors felt throughout the low pelvis. There is no cancerous lesions on the vulvar area. Catheter is in placed there is no active bleeding but she does say that she feels some gushes when she coughs. There is about 30-40 mL of blood in her diaper currently Results Result Diagrams: 10/30/22 06:18 10/30/22 06:18 Abnormal Lab Results - Last 24 Hours (Table) 10/29/22 10/29/22 10/29/22 Range/Units 05:57 11:52 12:30 WBC 12.98 H (4.50-10.00) X 10*3/uL RBC 1.54 L (4.10-5.20) X 10*6/uL Hgb 5.3 L* (12.0-15.0) g/dL Hct 18.2 L* (37.2-46.3) % MCV 118.2 H (80.0-97.0) fL MCH 34.4 H (27.0-32.0) pg MCHC 29.1 L (32.0-37.0) g/dL RDW 15.5 H (11.5-14.5) % Immature Gran # 0.08 H (0.00-0.04) X 10*3/uL Neutrophils # 11.19 H (1.80-7.70) X 10*3/uL Sodium (137-145) mmol/L Carbon Dioxide (22-30) mmol/L BUN (7-17) mg/dL Glucose (74-99) mg/dL POC Glucose (mg/dL) 153 H (70-110) mg/dL Calcium (8.4-10.2) mg/dL Crossmatch See Detail 10/29/22 10/29/22 10/30/22 Range/Units 16:30 21:26 06:00 WBC (4.50-10.00) X 10*3/uL RBC (4.10-5.20) X 10*6/uL Hgb (12.0-15.0) g/dL Hct (37.2-46.3) % MCV (80.0-97.0) fL MCH (27.0-32.0) pg MCHC (32.0-37.0) g/dL RDW (11.5-14.5) % Immature Gran # (0.00-0.04) X 10*3/uL Neutrophils # (1.80-7.70) X 10*3/uL Sodium (137-145) mmol/L Carbon Dioxide (22-30) mmol/L BUN (7-17) mg/dL Glucose (74-99) mg/dL POC Glucose (mg/dL) 182 H 150 H 126 H (70-110) mg/dL Calcium (8.4-10.2) mg/dL Crossmatch 10/30/22 10/30/22 Range/Units 06:18 06:18 WBC 12.3 H (4.50-10.00) X 10*3/uL RBC 2.62 L (4.10-5.20) X 10*6/uL Hgb 9.0 L (12.0-15.0) g/dL Hct 27.2 L (37.2-46.3) % MCV 103.8 H D (80.0-97.0) fL MCH (27.0-32.0) pg MCHC (32.0-37.0) g/dL RDW 18.2 H (11.5-14.5) % Immature Gran # (0.00-0.04) X 10*3/uL Neutrophils # (1.80-7.70) X 10*3/uL Sodium 133 L (137-145) mmol/L Carbon Dioxide 32 H (22-30) mmol/L BUN 20 H (7-17) mg/dL Glucose 112 H (74-99) mg/dL POC Glucose (mg/dL) (70-110) mg/dL Calcium 8.2 L (8.4-10.2) mg/dL Crossmatch Microbiology - Last 24 Hours (Table) 10/28/22 14:29 Urine Culture - Final Urine,Voided 10/28/22 14:15 Blood Culture Gram Stain - Preliminary Blood Blood Culture - Preliminary Escherichia coli 10/28/22 14:30 Blood Culture - Preliminary Blood No Growth after 24 hours 10/28/22 14:15 Blood Culture - Final Blood Assessment and Plan (1) COVID-19 virus infection Current Visit: Yes Status: Acute Code(s): U07.1 - COVID-19 SNOMED Code(s): 736222723 (2) Sepsis Current Visit: Yes Status: Acute Code(s): A41.9 - SEPSIS, UNSPECIFIED ORGANISM SNOMED Code(s): 41909895 (3) Adenocarcinoma of endometrium, stage 4 Current Visit: Yes Status: Acute Code(s): C54.1 - MALIGNANT NEOPLASM OF ENDOMETRIUM SNOMED Code(s): 645140375 Plan: 1. I spoke with the internal medicine physician and since her hemoglobin has risen significantly and her bleeding is unavoidable, the benefits of taking the eliquis with her current pulmonary embolism outweigh the risks. 2. Continue antibiotics 3. If the patient has an increase in her vaginal bleeding this could be helped potentially by radiation
--- NOTE | 2022-10-30 11:46 | US ---
EXAMINATION TYPE: US venous doppler duplex LE BI DATE OF EXAM: 10/30/2022 10:53 AM COMPARISON: NONE CLINICAL HISTORY: 67-year-old female PE, CoVID. On blood thinners. Inpatient. SIDE PERFORMED: Bilateral TECHNIQUE: The lower extremity deep venous system is examined utilizing real time linear array sonog toi with graded compression, doppler sonography and color-flow sonography. FINDINGS: VESSELS IMAGED: Common Femoral Vein Deep Femoral Vein Greater Saphenous Vein * Femoral Vein Popliteal Vein Small Saphenous Vein * Proximal Calf Veins (* superficial vessels) Right Leg: Negative for DVT Left Leg: Negative for DVT IMPRESSION: No evidence for DVT within the bilateral lower extremities imaged from the groin to the upper calves.
[2022-10-30 11:49] LABS: Glucose,Whole Blood 183 mg/dL (70-110)
--- NOTE | 2022-10-30 12:31 | P.CNPUL ---
History of Present Illness Consult date: 10/30/22 Requesting physician: Gabe Hernández Reason for consult: dyspnea, abnormal CXR/CT Chief complaint: Altered mental status, fever History of present illness: This is a pleasant 67-year-old female patient with a known history of stage IV uterine cancer maintained on lenvima and Keytruda in the outpatient setting, atrial fibrillation anticoagulated with Eliquis, chronic vaginal bleeding secondary to cancer, chronic indwelling Bryant catheter, diabetes mellitus, hypothyroidism, hypertension, hyperlipidemia, carotid stenosis, Lyme disease being treated with doxycycline. She was just discharged from here on 10/18/2022 with Lyme disease, sinusitis, vertigo. She was brought into the emergency room 10/28/2022 with generalized weakness, altered mental status, shortness of breath and [facility]cardia [facility]. She had been diagnosed with COVID-[address] angiogram here revealed occlusive PE lobar, substance segmental and more distal branch the left lower lobe. No CT findings of right heart strain. There is a small left pleural effusion and airspace disease at t he left base. A number of new pulmonary nodules left upper lobe and left lung base measuring up to 2.7 cm suspicious for metastatic disease. Dopplers of the lower extremities negative for DVT. She is seen today on the regular medical floor. She is laying flat in bed. Awake and alert in no acute distress. Maintaining O2 saturations in the 90s on 2 L/m per nasal cannula. Currently afebrile. No tachycardia. No tachypnea. Blood pressure stable. She did develop recurrent vaginal bleeding with a hemoglobin drop to 5.3 and is status post 2 units of packed red blood cells. Current hemoglobin 9.0. She had been seen by EDITORIAL ASSISTANT and they felt staying on Eliquis was more beneficial done stopping it. Pro-calcitonin level I.65. Urinalysis is positive for bacteria. She is given ceftriaxone. Review of Systems REVIEW OF SYSTEMS: CONSTITUTIONAL: Generalized weakness. Denies any recent significant weight loss or weight gain. EYES: Denies change in vision. EARS, NOSE, MOUTH, THROAT: Denies headaches, denies sore throat. CARDIOVASCULAR: Denies chest pain, palpitations or syncopal episodes. RESPIRATORY: Positive for shortness of breath, cough, congestion no hemoptysis. GASTROINTESTINAL: Denies change in appetite, denies abdominal pain GENITOURINARY: Positive for vaginal bleeding. Positive for chronic indwelling catheter and UTI. MUSKULOSKELETAL: Denies pain, denies swelling. INTEGUMENTARY: Denies rash, denies eczema. NEUROLOGICAL: Denies recent memory loss, no recent seizure activity. PSYCHIATRIC: Denies anxiety, denies depression. HEMATOLOGIC/LYMPHATIC: Positive for anemia, denies enlarged lymph nodes. Past Medical History Past Medical History: Atrial Fibrillation, Diabetes Mellitus, Hyperlipidemia, Hypertension, Thyroid Disorder Additional Past Medical History / Comment(s): Neuropathy, skin cancer in nose, gout, stage IV uterine cancer History of Any Multi-Drug Resistant Organisms: None Reported Past Surgical History: Section, Orthopedic Surgery Additional Past Surgical History / Comment(s): ulnar nerve surgery Past Anesthesia/Blood Transfusion Reactions: No Reported Reaction Past Psychological History: No Psychological Hx Reported Past Alcohol Use History: None Reported Past Drug Use History: None Reported Medications and Allergies Home Medications Medication Instructions Recorded Confirmed Type Atorvastatin [Lipitor] 20 mg PO HS 10/05/22 10/28/22 History Cholecalciferol [Vitamin D3 (25 50 mcg PO DAILY 10/05/22 10/28/22 History Mcg = 1000 Iu)] Cyclobenzaprine [Flexeril] 10 mg PO TID PRN 10/05/22 10/28/22 History Digoxin [Digitek] 125 mcg PO SUTUWETHSA 10/05/22 10/28/22 History Digoxin [Digitek] 187.5 mcg PO MOFR 10/05/22 10/28/22 History Famotidine [Pepcid] 20 mg PO Q12H 10/05/22 10/28/22 History Ferrous Sulfate [Iron (65 MG 650 mg PO DAILY 10/05/22 10/28/22 History Elemental)] Levothyroxine Sodium [Synthroid] 175 mcg PO DAILY 10/05/22 10/28/22 History Losartan [Cozaar] 50 mg PO DAILY 10/05/22 10/28/22 History Metoprolol Tartrate [Lopressor] 100 mg PO BID 10/05/22 10/28/22 History Roberts-3 Fatty Acids [Roberts-3] 1,000 mg PO TID 10/05/22 10/28/22 History Thiamine [Vitamin B-1] 100 mg PO DAILY 10/05/22 10/28/22 History Vit C/E/Zn/Coppr/Lutein/Zeaxan 1 cap PO Q12H 10/05/22 10/28/22 History [Preservision Areds 2 Softgel] allopurinoL 200 mg PO DAILY 10/05/22 10/28/22 History metFORMIN HCL ER [Glucophage XR] 500 mg PO DAILY 10/05/22 10/28/22 History Acetaminophen Tab [Tylenol] 650 mg PO Q6HR PRN tab 10/18/22 10/28/22 Rx Aspirin 81 mg PO DAILY tab 10/18/22 10/28/22 Rx Butalb/APAP/Caff 50-325-40Mg 1 tab PO Q4H PRN #6 tablet 10/18/22 10/28/22 Rx [Fioricet 50-325-40] Doxycycline [Vibramycin] 100 mg PO BID #41 cap 10/18/22 10/28/22 Rx Fluticasone Nasal Condon [Flonase 2 spray EA NOSTRIL DAILY ml 10/18/22 10/28/22 Rx Nasal Condon] Gabapentin [Neurontin] 400 mg PO QID #12 cap 10/18/22 10/28/22 Rx Mag Hydrox/Al Hydrox/Simeth 30 ml PO TID ml 10/18/22 10/28/22 Rx [Maalox] Meclizine [Antivert] 25 mg PO TID PRN tab 10/18/22 10/28/22 Rx Sennosides [Senokot] 8.6 mg PO BID PRN tab 10/18/22 10/28/22 Rx guaiFENesin [Mucinex] 1,200 mg PO Q12HR tab 10/18/22 10/28/22 Rx Apixaban [Eliquis] 5 mg PO Q12H 10/28/22 10/28/22 History Ascorbic Acid [Vitamin C] 500 mg PO DAILY 10/28/22 10/28/22 History HYDROcodone/APAP 5-325MG [[place] 1 tab PO TID PRN 10/28/22 10/28/22 History 5-325] Ondansetron [Zofran] 4 mg PO Q4H PRN 10/28/22 10/28/22 History Zinc Gluconate [Zinc] 50 mg PO DAILY 10/28/22 10/28/22 History predniSONE See Taper PO DIRECTED 10/28/22 10/28/22 History Allergies Allergy/AdvReac Type Severity Reaction Status Date / Time bacitracin Allergy Rash/Hives Verified 10/28/22 15:04 [From Neosporin ([id number])] clarithromycin [From Biaxin] Allergy Rash/Hives Verified 10/28/22 15:04 codeine Allergy Rash/Hives Verified 10/28/22 15:04 neomycin Allergy Rash/Hives Verified 10/28/22 15:04 [From Neosporin ([id number])] polymyxin B Allergy Rash/Hives Verified 10/28/22 15:04 [From Neosporin ([id number])] Physical Exam Vitals: Vital Signs Temp Pulse Pulse Resp BP BP Pulse Ox 10/30/22 09:56 99 10/30/22 07:09 98.7 F 80 15 122/69 100 10/30/22 02:07 97.5 F L 74 16 124/57 10/30/22 01:19 98.0 F 69 16 105/63 100 10/29/22 23:32 98.3 F 76 18 106/62 100 10/29/22 23:12 98.4 F 74 18 109/65 99 10/29/22 23:03 98.7 F 69 20 108/62 99 10/29/22 21:40 100.5 F H 10/29/22 20:00 100.2 F H 87 20 168/79 96 10/29/22 17:16 99.5 F 68 16 145/76 100 10/29/22 16:56 99.5 F 79 15 147/74 99 10/29/22 16:52 99.8 F H 74 15 147/66 10/29/22 13:21 98.5 F 70 17 129/75 100 10/29/22 12:44 100 Intake and Output 10/29/22 10/30/22 10/30/22 22:59 06:59 14:59 Intake Total 275 430 Output Total 600 500 Balance -325 -70 Intake: Oral 120 Blood Product 275 310 Rc As-1 Unit 310 [id number] Rc Pheresis As-3 Unit 275 [id number] Output: Urine 600 500 Uretheral (Bryant) 400 Other: Voiding Method Indwelling Catheter Indwelling Catheter GENERAL EXAM: Alert, 67-year-old female, on 2 L nasal cannula, comfortable in no apparent distress. HEAD: Normocephalic. EYES: Normal reaction of pupils, equal size. NOSE: Clear with pink turbinates. THROAT: No erythema or exudates. NECK: No masses, no JVD. CHEST: No chest wall deformity. LUNGS: Equal air entry with scattered rhonchi, crackles in left base. CVS: S1 and S2 normal with no audible murmur, irregular rhythm. ABDOMEN: No hepatosplenomegaly, normal bowel sounds, no guarding or rigidity. SPINE: No scoliosis or deformity SKIN: No rashes CENTRAL NERVOUS SYSTEM: No focal deficits, tone is normal in all 4 extremities. EXTREMITIES: There is no peripheral edema. No clubbing, no cyanosis. Peripheral pulses are intact. Results - Laboratory Findings CBC and BMP: 10/30/22 06:18 10/30/22 06:18 PT/INR, D-dimer PT 12.0 sec (9.0-12.0) 10/28/22 14:29 INR 1.2 (<1.2) H 10/28/22 14:29 D-Dimer 2.38 mg/L FEU (<0.60) H 10/29/22 05:57 Abnormal lab findings: Abnormal Labs 10/28/22 10/28/22 10/28/22 14:29 14:29 14:29 WBC 26.0 H RBC 2.31 L Hgb 8.2 L Hct 25.3 L MCV 109.7 H D MCH 35.6 H MCHC RDW Immature Gran # Neutrophils # 24.2 H Macrocytosis Marked A INR 1.2 H D-Dimer Sodium Chloride Carbon Dioxide BUN BUN/Creatinine Ratio Glucose POC Glucose (mg/dL) Plasma Lactic Acid Adrian Calcium AST Alkaline Phosphatase C-Reactive Protein Total Protein Albumin Albumin/Globulin Ratio Procalcitonin Urine Appearance Turbid H Urine Protein 2+ H Urine Blood Large H Ur Leukocyte Esterase Large H Urine RBC >182 H Urine WBC >182 H Urine WBC Clumps Many H Urine Bacteria Moderate H Urine Mucus Moderate H Urine Yeast (Budding) Many H SARS-CoV-2 (PCR) Crossmatch 10/28/22 10/28/22 10/28/22 14:29 14:29 14:29 WBC RBC Hgb Hct MCV MCH MCHC RDW Immature Gran # Neutrophils # Macrocytosis INR D-Dimer Sodium 132 L Chloride 92 L Carbon Dioxide 36 H BUN 21 H BUN/Creatinine Ratio Glucose 144 H POC Glucose (mg/dL) Plasma Lactic Acid Adrian 3.1 H* Calcium AST 50 H Alkaline Phosphatase 148 H C-Reactive Protein Total Protein Albumin 2.9 L Albumin/Globulin Ratio Procalcitonin Urine Appearance Urine Protein Urine Blood Ur Leukocyte Esterase Urine RBC Urine WBC Urine WBC Clumps Urine Bacteria Urine Mucus Urine Yeast (Budding) SARS-CoV-2 (PCR) Detected A Crossmatch 10/28/22 10/28/22 10/28/22 17:58 20:21 21:04 WBC RBC Hgb Hct MCV MCH MCHC RDW Immature Gran # Neutrophils # Macrocytosis INR D-Dimer Sodium Chloride Carbon Dioxide BUN BUN/Creatinine Ratio Glucose POC Glucose (mg/dL) 153 H Plasma Lactic Acid Adrian 2.1 H* 3.0 H* Calcium AST Alkaline Phosphatase C-Reactive Protein Total Protein Albumin Albumin/Globulin Ratio Procalcitonin Urine Appearance Urine Protein Urine Blood Ur Leukocyte Esterase Urine RBC Urine WBC Urine WBC Clumps Urine Bacteria Urine Mucus Urine Yeast (Budding) SARS-CoV-2 (PCR) Crossmatch 10/29/22 10/29/22 10/29/22 05:57 05:57 05:57 WBC RBC Hgb Hct MCV MCH MCHC RDW Immature Gran # Neutrophils # Macrocytosis INR D-Dimer 2.38 H Sodium Chloride Carbon Dioxide BUN BUN/Creatinine Ratio 25.00 H Glucose 120 H POC Glucose (mg/dL) Plasma Lactic Acid Adrian Calcium 8.6 L AST 45 H Alkaline Phosphatase C-Reactive Protein 19.10 H Total Protein 5.3 L Albumin 2.4 L Albumin/Globulin Ratio 0.82 L Procalcitonin 1.65 H Urine Appearance Urine Protein Urine Blood Ur Leukocyte Esterase Urine RBC Urine WBC Urine WBC Clumps Urine Bacteria Urine Mucus Urine Yeast (Budding) SARS-CoV-2 (PCR) Crossmatch 10/29/22 10/29/22 10/29/22 05:57 05:57 11:52 WBC 12.98 H RBC 1.54 L Hgb 5.3 L* Hct 18.2 L* MCV 118.2 H MCH 34.4 H MCHC 29.1 L RDW 15.5 H Immature Gran # 0.08 H Neutrophils # 11.19 H Macrocytosis INR D-Dimer Sodium Chloride Carbon Dioxide BUN BUN/Creatinine Ratio Glucose POC Glucose (mg/dL) 153 H Plasma Lactic Acid Adrian 3.0 H* Calcium AST Alkaline Phosphatase C-Reactive Protein Total Protein Albumin Albumin/Globulin Ratio Procalcitonin Urine Appearance Urine Protein Urine Blood Ur Leukocyte Esterase Urine RBC Urine WBC Urine WBC Clumps Urine Bacteria Urine Mucus Urine Yeast (Budding) SARS-CoV-2 (PCR) Crossmatch 10/29/22 10/29/22 10/29/22 12:30 16:30 21:26 WBC RBC Hgb Hct MCV MCH MCHC RDW Immature Gran # Neutrophils # Macrocytosis INR D-Dimer Sodium Chloride Carbon Dioxide BUN BUN/Creatinine Ratio Glucose POC Glucose (mg/dL) 182 H 150 H Plasma Lactic Acid Adrian Calcium AST Alkaline Phosphatase C-Reactive Protein Total Protein Albumin Albumin/Globulin Ratio Procalcitonin Urine Appearance Urine Protein Urine Blood Ur Leukocyte Esterase Urine RBC Urine WBC Urine WBC Clumps Urine Bacteria Urine Mucus Urine Yeast (Budding) SARS-CoV-2 (PCR) Crossmatch See Detail 10/30/22 10/30/22 10/30/22 06:00 06:18 06:18 WBC 12.3 H RBC 2.62 L Hgb 9.0 L Hct 27.2 L MCV 103.8 H D MCH MCHC RDW 18.2 H Immature Gran # Neutrophils # Macrocytosis INR D-Dimer Sodium 133 L Chloride Carbon Dioxide 32 H BUN 20 H BUN/Creatinine Ratio Glucose 112 H POC Glucose (mg/dL) 126 H Plasma Lactic Acid Adrian Calcium 8.2 L AST Alkaline Phosphatase C-Reactive Protein Total Protein Albumin Albumin/Globulin Ratio Procalcitonin Urine Appearance Urine Protein Urine Blood Ur Leukocyte Esterase Urine RBC Urine WBC Urine WBC Clumps Urine Bacteria Urine Mucus Urine Yeast (Budding) SARS-CoV-2 (PCR) Crossmatch 10/30/22 11:48 WBC RBC Hgb Hct MCV MCH MCHC RDW Immature Gran # Neutrophils # Macrocytosis INR D-Dimer Sodium Chloride Carbon Dioxide BUN BUN/Creatinine Ratio Glucose POC Glucose (mg/dL) 183 H Plasma Lactic Acid Adrian Calcium AST Alkaline Phosphatase C-Reactive Protein Total Protein Albumin Albumin/Globulin Ratio Procalcitonin Urine Appearance Urine Protein Urine Blood Ur Leukocyte Esterase Urine RBC Urine WBC Urine WBC Clumps Urine Bacteria Urine Mucus Urine Yeast (Budding) SARS-CoV-2 (PCR) Crossmatch - Diagnostic Findings Chest x-ray: image reviewed CT scan - chest: image reviewed Assessment and Plan Assessment: Acute hypoxemic respiratory failure secondary to pulmonary emboli mostly in the segmental and distal branches of left lower lobe. Small left pleural effusion and airspace disease left base COVID-19 infection Stage IV uterine cancer with metastasis including pulmonary nodules and left upper lobe and left base measuring up to 2.7 cm. Maintaining on Lenvima and Keytruda in the outpatient setting Acute on chronic vaginal bleeding secondary to above Acute anemia with hemoglobin dropped to 5.3, status post 2 units of packed red blood cells, current hemoglobin 9.00 Chronic atrial fibrillation anticoagulated with Eliquis Urinary tract infection, on Rocephin, cultures pending Chronic indwelling Bryant catheter Right carotid stenosis. Recent history of Lyme's disease treated with doxycycline History of hypertension Hyperlipidemia Diabetes mellitus Poor overall functional performance based on the above-mentioned comorbidities care home resident Plan: The patient was seen and evaluated Chest x-ray, CAT scan, labs and medications reviewed Currently stable and on 2 L nasal cannula No need for thoracentesis Continue antibiotics Resume Eliquis, appreciate EDITORIAL ASSISTANT consultation Oncology consultation Prognosis is guarded DO NOT RESUSCITATE/DO NOT INTUBATE CODE STATUS We will continue to follow and make further recommendations based on her clinical status I have personally seen and examined the patient, performed the documentation and the assessment and plan as written. Number of minutes spent on the visit: 20.
--- NOTE | 2022-10-30 13:41 | P.PN ---
Subjective Progress Note Date: 10/30/22 Patient is a very pleasant 67-year-old woman with a medical history of stage IV uterine cancer with metastasis, hypertension, hyperlipidemia, diabetes, iron deficiency anemia, and permanent atrial fibrillation. She was initially hospitalized on 10/05/22 for altered mentation and discharged on 10/18/22. There was concerns for aseptic meningitis given her history of keytruda and lenvima use. Stroke was ruled out with 2 MRI brains. Lumbar puncture was done which showed elevated total protein of 70, normal glucose, elevated total nucleated cells of 45 with predominance of mononuclear white blood cells. ID was consulted, and did not believe findings were consistent with bacterial meningitis. HSV and viral panel CSF was negative. She was also seen by vascular surgery for critical stenosis of the right ICA, recommended outpatient follow-up. She was initiated on Keppra for seizure prophylaxis by [facility]. She completed multiple days of Zosyn IV for presumed pneumonia. HIV and treponema were both nonreactive. Lyme screening IgG and IgM was positive at 2.05. Augmentin discontinued at that time and patient started on doxycycline 100 mg twice daily to complete a three-week course and follow up outpatient with ID. She was subsequently discharged to SNF. Patient presents back to the ED from SNF for worsening altered mentation, increased work of breathing and worsening tachycardia. Of note, patient was diagnosed with COVID-19 at SNF. In the ED, T-max was 101.3 Fahrenheit. She was tachycardic with heart rate in the 120s. Vital signs were otherwise stable. CBC showed leukocytosis of 26 with hemoglobin of 8.2 and MCV of 109.7. INR was 1.2. CMP showed sodium of 132, chloride of 92, bicarb of 36, BUN of 21, glucose 144, AST of 50 and alkaline phosphatase of 148. Lactic acid was 3.1. Ammonia was negative. Troponin was less than 0.012. BNP was 3310 chest x-ray show cardiomegaly with small left-sided pleural effusion or fluid collection and associated left lower lobe acute infiltrate/atelectasis. Brain CT was negative for acute finding. COVID-19 was positive. Influenza flu negative. Urinalysis showed large blood, large leukocyte esterase with moderate bacteria, moderate mucus and many yeast. Patient is admitted for sepsis with infectious disease consultation. Patient was started on vancomycin and cefepime for treatment of sepsis. Infectious disease was consulted. Blood culture came back positive for E. coli. Antibiotics were switched to Rocephin. She was noted to have a drop in her hemoglobin from 8.2-5.3 which was thought to be dilutional as all of her cell lines dropped. 2 unit of PRBC was ordered and hemoglobin improved to 9. Patient developed vaginal bleeding overnight and her Eliquis was discontinued. CUSHION MAKER HAND was consulted and recommended continued monitoring for worsening of her vaginal bleeding. CTA chest was ordered because of her elevated d-dimer which showed occlusive pulmonary embolus lobar, segmental and more distal branches of the l eft lower lobe along with small left pleural effusion. Pulmonology was consulted and recommended reinitiating Eliquis. Patient was seen and examined this morning. No acute events overnight. Patient reports slight improvement in her suprapubic discomfort. She continues to complain of dry cough. She appears more energized and awake this morning. General: non toxic, no distress, appears at stated age Derm: warm, dry Head: atraumatic, normocephalic, symmetric Eyes: EOMI, no lid lag, anicteric sclera Mouth: no lip lesion, mucus membranes moist Cardiovascular: Irregularly irregular, no murmur Lungs: Decreased BS bilateral, no rhonchi, no rales , no accessory muscle use Abdominal: soft, suprapubic tenderness, no guarding, no appreciable organomegaly Ext: no gross muscle atrophy, no edema, no contractures Neuro: no focal neuro deficits Psych: Alert, oriented x 3ures #Sepsis with gram-negative bacteremia #Pulmonary embolus #Urinary tract infection #COVID-19 pneumonia #Acute metabolic encephalopathy likely related to above #Acute hypoxic respiratory failure #Macrocytic anemia #Vaginal bleeding Chronic conditions: stage IV uterine cancer with metastasis, hypertension, hyperlipidemia, diabetes, iron deficiency anemia, and permanent atrial fibr illation Based on my assessment of this patient, this patient meets a high complexity l evel of care. I have reviewed the following dynamics ax consultant notes: None. I have reviewed the results of the following tests: CBC shows leukocytosis of 12.3 and hemoglobin of 9 MCV of 3.8. CTA chest was ordered because of her elevated d-dimer which showed occlusive pulmonary embolus lobar, segmental and more distal branches of the left lower lobe along with small left pleural effusion. BMP shows sodium of 133, bicarb of 32 and BUN 20 with glucose of 112 and calcium of 8.2. Blood culture shows E. coli. Urine culture negative. Venous Doppler negative for DVT. I have ordered the following tests: Repeat blood culture ordered for tomorrow morning. CBC for tomorrow morning. (Acute drop in hemoglobin along with new complaint of vaginal bleeding) I have discussed the care of this patient with the following independent historian: None. I have independently interpreted the following test below: None. I have discussed the management of this patient with the following physician: Case was discussed with Dr. Diaz recommended restarting anticoagulation as benefits outweigh risks. Case was discussed with Dr. Herndon recommended switching antibiotics to Rocephin. This patient has a high risk of morbidity due to the following reasons: Patient has an acute diagnosis of sepsis likely related to UTI and COVID-19 pneumonia that poses a threat to life or bodily function. She has also been diagnosed with a pulmonary embolus. Blood cultures are positive for E. coli. Patient will be switched to Rocephin 2 g IV daily. Telemetry monitoring will be continued. Repeat blood cultures ordered. Infectious disease on board. Her CTA chest is positive for PE. Venous Doppler negative for DVT. Her PE is performed given her history of metastatic cancer and hypercoagulable state. She was initially started on Eliquis 5 mg by mouth twice a day for anticoagulation for A-Fib which is not therapeutic for acute PE. I will start the patient on Eliquis 10 mg by mouth twice a day for 7 days followed by 5 mg by mouth twice a day indefinitely. Her hemoglobin has improved after transfusing 2 units PRBC. Eliquis for DVT prophylaxis. Patient would like to be NO CODE. Objective - Vital Signs Vital signs: Vital Signs Temp 98.7 F 10/30/22 07:09 Pulse 80 10/30/22 07:09 Resp 15 10/30/22 07:09 BP 122/69 10/30/22 07:09 Pulse Ox 99 10/30/22 09:56 FiO2 Intake & Output 10/29/22 10/30/22 10/30/22 18:59 06:59 18:59 Intake Total 240 705 Output Total 1100 Balance 240 -395 Intake: Oral 240 120 Blood Product 0 585 Rc As-1 Unit 310 [id number] Rc Pheresis As-3 Unit 0 275 [id number] Output: Urine 1100 Uretheral (Bryant) 400 Other: Voiding Method Indwelling Catheter Indwelling Catheter Indwelling Catheter - Labs CBC & Chem 7: 10/30/22 06:18 10/30/22 06:18 Labs: Abnormal Lab Results - Last 24 Hours (Table) 10/29/22 10/29/22 10/29/22 Range/Units 12:30 16:30 21:26 WBC (3.8-10.6) k/uL RBC (3.80-5.40) m/uL Hgb (11.4-16.0) gm/dL Hct (34.0-46.0) % MCV (80.0-100.0) fL RDW (11.5-15.5) % Sodium (137-145) mmol/L Carbon Dioxide (22-30) mmol/L BUN (7-17) mg/dL Glucose (74-99) mg/dL POC Glucose (mg/dL) 182 H 150 H (70-110) mg/dL Calcium (8.4-10.2) mg/dL Crossmatch See Detail 10/30/22 10/30/22 10/30/22 Range/Units 06:00 06:18 06:18 WBC 12.3 H (3.8-10.6) k/uL RBC 2.62 L (3.80-5.40) m/uL Hgb 9.0 L (11.4-16.0) gm/dL Hct 27.2 L (34.0-46.0) % MCV 103.8 H D (80.0-100.0) fL RDW 18.2 H (11.5-15.5) % Sodium 133 L (137-145) mmol/L Carbon Dioxide 32 H (22-30) mmol/L BUN 20 H (7-17) mg/dL Glucose 112 H (74-99) mg/dL POC Glucose (mg/dL) 126 H (70-110) mg/dL Calcium 8.2 L (8.4-10.2) mg/dL Crossmatch 10/30/22 Range/Units 11:48 WBC (3.8-10.6) k/uL RBC (3.80-5.40) m/uL Hgb (11.4-16.0) gm/dL Hct (34.0-46.0) % MCV (80.0-100.0) fL RDW (11.5-15.5) % Sodium (137-145) mmol/L Carbon Dioxide (22-30) mmol/L BUN (7-17) mg/dL Glucose (74-99) mg/dL POC Glucose (mg/dL) 183 H (70-110) mg/dL Calcium (8.4-10.2) mg/dL Crossmatch Microbiology - Last 24 Hours (Table) 10/28/22 14:29 Urine Culture - Final Urine,Voided 10/28/22 14:15 Blood Culture Gram Stain - Preliminary Blood Blood Culture - Preliminary Escherichia coli 10/28/22 14:30 Blood Culture - Preliminary Blood No Growth after 24 hours 10/28/22 14:15 Blood Culture - Final Blood
[2022-10-30 16:32] LABS: Glucose,Whole Blood 154 mg/dL (70-110)
[2022-10-30] MEDS: ACETAMINOPHEN TAB 325 MG TAB PO PRN (18:11)
[2022-10-30 20:12] LABS: Glucose,Whole Blood 194 mg/dL (70-110)
[2022-10-30] MEDS ORDERED: APIXABAN 5 MG TAB PO SCH (21:00)
[2022-10-30] MEDS: ATORVASTATIN 20 MG TAB PO SCH (21:35)
[2022-10-30] MEDS: APIXABAN 5 MG TAB PO SCH (21:35)
--- NOTE | 2022-10-30 22:20 | P.PN ---
Subjective Progress Note Date: 10/30/22 Principal diagnosis: E. coli bacteremia Patient is a 67-year-old female with a past medical history significant for stage IV uterine cancer hypertension hyperlipidemia atrial fibrillation and diabetes mellitus , who was brought in to the hospital for evaluation of mental status changes his work of breathing and tachycardia and was recently diagnosed with Covid 19 at the [facility] facility. On today's evaluation that is 10/30/2022 the patient is afebrile this morning, the patient is currently breathing comfortably on 2 L nasal cannula, the patient denies having any chest pain or shortness of breath occasional cough that has some abdominal discomfort but no diarrhea Objective - Vital Signs Vital signs: Vital Signs Temp 98.7 F 10/30/22 07:09 Pulse 80 10/30/22 07:09 Resp 15 10/30/22 07:09 BP 122/69 10/30/22 07:09 Pulse Ox 100 10/30/22 07:09 FiO2 Intake & Output 10/29/22 10/30/22 10/30/22 18:59 06:59 18:59 Intake Total 240 705 Output Total 1100 Balance 240 -395 Intake: Oral 240 120 Blood Product 0 585 Rc As-1 Unit 310 [id number] Rc Pheresis As-3 Unit 0 275 [id number] Output: Urine 1100 Uretheral (Bryant) 400 Other: Voiding Method Indwelling Catheter Indwelling Catheter - Exam GENERAL DESCRIPTION: An elderly female lying in bed in no distress RESPIRATORY SYSTEM: Unlabored breathing , decreased breath sounds at bases HEART: S1 S2 regular rate and rhythm , ABDOMEN: Soft , no tenderness EXTREMITIES: No edema feet - Labs CBC & Chem 7: 10/30/22 06:18 10/30/22 06:18 Labs: Abnormal Lab Results - Last 24 Hours (Table) 10/29/22 10/29/22 10/29/22 Range/Units 05:57 05:57 11:52 WBC 12.98 H (4.50-10.00) X 10*3/uL RBC 1.54 L (4.10-5.20) X 10*6/uL Hgb 5.3 L* (12.0-15.0) g/dL Hct 18.2 L* (37.2-46.3) % MCV 118.2 H (80.0-97.0) fL MCH 34.4 H (27.0-32.0) pg MCHC 29.1 L (32.0-37.0) g/dL RDW 15.5 H (11.5-14.5) % Immature Gran # 0.08 H (0.00-0.04) X 10*3/uL Neutrophils # 11.19 H (1.80-7.70) X 10*3/uL Sodium (137-145) mmol/L Carbon Dioxide (22-30) mmol/L BUN (7-17) mg/dL Glucose (74-99) mg/dL POC Glucose (mg/dL) 153 H (70-110) mg/dL Calcium (8.4-10.2) mg/dL Procalcitonin 1.65 H (0.02-0.09) ng/mL Crossmatch 10/29/22 10/29/22 10/29/22 Range/Units 12:30 16:30 21:26 WBC (4.50-10.00) X 10*3/uL RBC (4.10-5.20) X 10*6/uL Hgb (12.0-15.0) g/dL Hct (37.2-46.3) % MCV (80.0-97.0) fL MCH (27.0-32.0) pg MCHC (32.0-37.0) g/dL RDW (11.5-14.5) % Immature Gran # (0.00-0.04) X 10*3/uL Neutrophils # (1.80-7.70) X 10*3/uL Sodium (137-145) mmol/L Carbon Dioxide (22-30) mmol/L BUN (7-17) mg/dL Glucose (74-99) mg/dL POC Glucose (mg/dL) 182 H 150 H (70-110) mg/dL Calcium (8.4-10.2) mg/dL Procalcitonin (0.02-0.09) ng/mL Crossmatch See Detail 10/30/22 10/30/22 10/30/22 Range/Units 06:00 06:18 06:18 WBC 12.3 H (4.50-10.00) X 10*3/uL RBC 2.62 L (4.10-5.20) X 10*6/uL Hgb 9.0 L (12.0-15.0) g/dL Hct 27.2 L (37.2-46.3) % MCV 103.8 H D (80.0-97.0) fL MCH (27.0-32.0) pg MCHC (32.0-37.0) g/dL RDW 18.2 H (11.5-14.5) % Immature Gran # (0.00-0.04) X 10*3/uL Neutrophils # (1.80-7.70) X 10*3/uL Sodium 133 L (137-145) mmol/L Carbon Dioxide 32 H (22-30) mmol/L BUN 20 H (7-17) mg/dL Glucose 112 H (74-99) mg/dL POC Glucose (mg/dL) 126 H (70-110) mg/dL Calcium 8.2 L (8.4-10.2) mg/dL Procalcitonin (0.02-0.09) ng/mL Crossmatch Microbiology - Last 24 Hours (Table) 10/28/22 14:29 Urine Culture - Final Urine,Voided 10/28/22 14:15 Blood Culture Gram Stain - Preliminary Blood Blood Culture - Preliminary Escherichia coli 10/28/22 14:30 Blood Culture - Preliminary Blood No Growth after 24 hours 10/28/22 14:15 Blood Culture - Final Blood Assessment and Plan (1) E coli bacteremia Current Visit: Yes Status: Acute Code(s): R78.81 - BACTEREMIA; B96.20 - UNSP ESCHERICHIA COLI THE CAUSE OF DISEASES CLASSD [facility] SNOMED Code(s): 095584686558 Plan: 1patient presented to hospital with sepsis in this patient who did have a fever tachycardia elevated white count elevated lactic acid now with evidence of gram- negative bacteremia source could be likely urinary however the patient also have left lower lobe infiltrate elevated procalcitonin and a possible component of gram-negative pneumonia. 2blood cultures has been repeated document clearance of bacteremia 3-Patient did recently tested positive for COVID-19 at the long term for which treatment will be mostly supportive at this point and hold on adding remdesivir 4-patient blood culture had been finalized with E. coli possible urinary source antibiotic has been adjusted Rocephin 2 g daily on the basis of sensitivity and will monitor clinical course closely Time with Patient: Less than 30
[2022-10-31 06:00] LABS: Glucose,Whole Blood 101 mg/dL (70-110)
[2022-10-31] MEDS: LEVOTHYROXINE 88 MCG TAB PO SCH (06:09)
[2022-10-31] MEDS: HYDROcodone/APAP 5-325MG 1 EACH TAB PO PRN ×2 (09:04→17:18)
[2022-10-31] MEDS: GABAPENTIN 400 MG CAP PO SCH ×4 (09:05→20:47)
[2022-10-31] MEDS: METOPROLOL TARTRATE 50 MG TAB PO SCH ×2 (09:05→20:47)
[2022-10-31] MEDS: APIXABAN 5 MG TAB PO SCH ×2 (09:05→20:47)
[2022-10-31] MEDS: FAMOTIDINE 20 MG TAB PO SCH ×2 (09:05→20:47)
[2022-10-31] MEDS: allopurinoL 100 MG TAB PO SCH (09:05)
[2022-10-31] MEDS: FLUTICASONE 50MCG/SPRAY NASAL 16GM EA NOSTRIL SCH (09:05)
[2022-10-31] MEDS: DIGOXIN 125 MCG TAB PO SCH (09:05)
[2022-10-31] MEDS: BENZONATATE 100 MG CAP PO PRN ×2 (09:33→17:16)
[2022-10-31 10:53] LABS: Basophils # (A) 0.04 X 10*3/uL (0.00-0.10); Basophils % (A) 0.4 %; Eosinophils # (A) 0.24 X 10*3/uL (0.04-0.35); Eosinophils % (A) 2.2 %; HCT 26.9 % (37.2-46.3); HGB 8.3 g/dL (12.0-15.0); Immature Grans, Automated 0.8 %; Lymphocytes # (A) 1.17 X 10*3/uL (0.90-5.00); Lymphocytes % (A) 10.8 %; MCH 33.3 pg (27.0-32.0); MCHC 30.9 g/dL (32.0-37.0); Mean Platelet Volume 9.8 fL (9.5-12.2); Monocytes # (A) 0.69 X 10*3/uL (0.20-1.00); Monocytes % (A) 6.3 %; NRBC Per 100 WBC 0.2 /100 WBCS (0.0-0.0); Neutrophils # (A) 8.65 X 10*3/uL (1.80-7.70); Neutrophils % (A) 79.5 %; Platelet Count 132 X 10*3/uL (140-440); RBC 2.49 X 10*6/uL (4.10-5.20); RDW 19.5 % (11.5-14.5); WBC 10.88 X 10*3/uL (4.50-10.00)
[2022-10-31 11:24] LABS: African American GFR (CKD) 85.8 (60.0-200.0)
[2022-10-31 11:26] LABS: Glucose,Whole Blood 123 mg/dL (70-110)
--- NOTE | 2022-10-31 13:26 | P.PN ---
Subjective Progress Note Date: 10/31/22 This is a pleasant 67-year-old female patient with a known history of stage IV uterine cancer maintained on lenvima and Keytruda in the outpatient setting, atrial fibrillation anticoagulated with Eliquis, chronic vaginal bleeding secondary to cancer, chronic indwelling Bryant catheter, diabetes mellitus, h ypothyroidism, hypertension, hyperlipidemia, carotid stenosis, Lyme disease being treated with doxycycline. She was just discharged from here on 10/18/2022 with Lyme disease, sinusitis, vertigo. She was brought into the emergency room 10/28/2022 with generalized weakness, altered mental status, shortness of breath and tachycardia from intermediate facility. She had been diagnosed with COVID-[address] angiogram here revealed occlusive PE lobar, substance segmental and more distal branch the left lower lobe. No CT findings of right heart strain. There is a small left pleural effusion and airspace disease at the left base. A number of new pulmonary nodules left upper lobe and left lung base measuring up to 2.7 cm suspicious for metastatic disease. Dopplers of the lower extremities negative for DVT. She is seen today on the regular medical floor. She is laying flat in bed. Awake and alert in no acute distress. Maintaining O2 saturations in the 90s on 2 L/m per nasal cannula. Currently afebrile. No tachycardia. No tachypnea. Blood pressure stable. She did devel op recurrent vaginal bleeding with a hemoglobin drop to 5.3 and is status post 2 units of packed red blood cells. Current hemoglobin 9.0. She had been seen by BALLISTIC EXPERT and they felt staying on Eliquis was more beneficial done stopping it. Pro- calcitonin level I.65. Urinalysis is positive for bacteria. She is given ceftriaxone. The patient is seen today 10/31/2022 in follow-up on the regular medical floor. She is more awake and alert. Denies any worsening shortness of breath, cough or congestion. Maintaining O2 saturations in the 90s on room air. No chest pain or discomfort. She is status post 2 units of packed red blood cells this admission. Current hemoglobin 8.3. Platelets 132. Denies any significant vaginal bleeding. Blood culture was positive for E. coli. White count 10.8. Creatinine 0.8. Glucose 123. She remains on ceftriaxone. Remains on Eliquis. Objective - Vital Signs Vital signs: Vital Signs Temp 99.9 F H 10/31/22 07:21 Pulse 76 10/31/22 07:21 Resp 20 10/31/22 09:45 BP 127/66 10/31/22 07:21 Pulse Ox 93 L 10/31/22 07:21 FiO2 Intake & Output 10/30/22 10/31/22 10/31/22 18:59 06:59 18:59 Intake Total 0 250 Output Total 600 500 Balance -600 -500 250 Intake: Oral 0 250 Output: Urine 600 500 Uretheral (Bryant) 400 Other: Voiding Method Indwelling Catheter Indwelling Catheter Indwelling Catheter - Exam GENERAL EXAM: Alert, pleasant 67-year-old female, on room air, comfortable in no apparent distress. HEAD: Normocephalic. EYES: Normal reaction of pupils, equal size. NOSE: Clear with pink turbinates. THROAT: No erythema or exudates. NECK: No masses, no JVD. CHEST: No chest wall deformity. LUNGS: Equal air entry with scattered rhonchi, crackles in left base. CVS: S1 and S2 normal with no audible murmur, irregular rhythm. ABDOMEN: No hepatosplenomegaly, normal bowel sounds, no guarding or rigidity. SPINE: No scoliosis or deformity SKIN: No rashes CENTRAL NERVOUS SYSTEM: No focal deficits, tone is normal in all 4 extremities. EXTREMITIES: There is no peripheral edema. No clubbing, no cyanosis. Peripheral pulses are intact. - Labs CBC & Chem 7: 10/31/22 07:22 10/31/22 07:22 Labs: Abnormal Lab Results - Last 24 Hours (Table) 10/30/22 10/30/22 10/31/22 Range/Units 16:31 20:11 07:22 WBC 10.88 H (4.50-10.00) X 10*3/uL RBC 2.49 L (4.10-5.20) X 10*6/uL Hgb 8.3 L (12.0-15.0) g/dL Hct 26.9 L (37.2-46.3) % MCV 108.0 H (80.0-97.0) fL MCH 33.3 H (27.0-32.0) pg MCHC 30.9 L (32.0-37.0) g/dL RDW 19.5 H (11.5-14.5) % Plt Count 132 L (140-440) X 10*3/uL Absolute Nucleated RBC 0.02 H (0.00-0.00) X 10*3/uL Immature Gran # 0.09 H (0.00-0.04) X 10*3/uL Neutrophils # 8.65 H (1.80-7.70) X 10*3/uL NRBC/100 WBC Diff 0.2 H (0.0-0.0) /100 WBCS POC Glucose (mg/dL) 154 H 194 H (70-110) mg/dL 10/31/22 Range/Units 11:25 WBC (4.50-10.00) X 10*3/uL RBC (4.10-5.20) X 10*6/uL Hgb (12.0-15.0) g/dL Hct (37.2-46.3) % MCV (80.0-97.0) fL MCH (27.0-32.0) pg MCHC (32.0-37.0) g/dL RDW (11.5-14.5) % Plt Count (140-440) X 10*3/uL Absolute Nucleated RBC (0.00-0.00) X 10*3/uL Immature Gran # (0.00-0.04) X 10*3/uL Neutrophils # (1.80-7.70) X 10*3/uL NRBC/100 WBC Diff (0.0-0.0) /100 WBCS POC Glucose (mg/dL) 123 H (70-110) mg/dL Microbiology - Last 24 Hours (Table) 10/28/22 14:30 Blood Culture - Preliminary Blood No Growth after 48 hours 10/28/22 14:15 Blood Culture Gram Stain - Preliminary Blood Blood Culture - Preliminary Escherichia coli Assessment and Plan Assessment: Acute hypoxemic respiratory failure secondary to pulmonary emboli mostly in the segmental and distal branches of left lower lobe. Small left pleural effusion and airspace disease left base. Improved on room air COVID-19 infection Bacteria anemia secondary to E. coli suspect UTI Stage IV uterine cancer with metastasis including pulmonary nodules and left upper lobe and left base measuring up to 2.7 cm. Maintaining on Lenvima and Keytruda in the outpatient setting Acute on chronic vaginal bleeding secondary to above Acute anemia with hemoglobin dropped to 5.3, status post 2 units of packed red blood cells, current hemoglobin 8.3 Chronic atrial fibrillation anticoagulated with Eliquis Urinary tract infection, on Rocephin, cultures pending Chronic indwelling Bryant catheter Right carotid stenosis. Recent history of Lyme's disease treated with doxycycline History of hypertension Hyperlipidemia Diabetes mellitus Poor overall functional performance based on the above-mentioned comorbidities [facility] resident Plan: The patient was seen and evaluated Labs and medications reviewed Currently stable and on room air Continue antibiotics Prognosis is guarded DO NOT RESUSCITATE/DO NOT INTUBATE CODE STATUS We will continue to follow I have personally seen and examined the patient, performed the documentation and the assessment and plan as written. Number of minutes spent on the visit: 10.
--- NOTE | 2022-10-31 13:32 | P.PN ---
Subjective Progress Note Date: 10/31/22 Patient is a very pleasant 67-year-old woman with a medical history of stage IV uterine cancer with metastasis, hypertension, hyperlipidemia, diabetes, iron deficiency anemia, and permanent atrial fibrillation. She was initially hospitalized on 10/05/22 for altered mentation and discharged on 10/18/22. There was concerns for aseptic meningitis given her history of keytruda and lenvima use. Stroke was ruled out with 2 MRI brains. Lumbar puncture was done which showed elevated total protein of 70, normal glucose, elevated total nucleated cells of 45 with predominance of mononuclear white blood cells. ID was consulted, and did not believe findings were consistent with bacterial meningitis. HSV and viral panel CSF was negative. She was also seen by vascular surgery for critical stenosis of the right ICA, recommended outpatient follow-up. She was initiated on Keppra for seizure prophylaxis by [facility]. She completed multiple days of Zosyn IV for presumed pneumonia. HIV and treponema were both nonreactive. Lyme screening IgG and IgM was positive at 2.05. Augmentin discontinued at that time and patient started on doxycycline 100 mg twice daily to complete a three-week course and follow up outpatient with ID. She was subsequently discharged to SNF. Patient presents back to the ED from SNF for worsening altered mentation, increased work of breathing and worsening tachycardia. Of note, patient was diagnosed with COVID-19 at SNF. In the ED, T-max was 101.3 Fahrenheit. She was tachycardic with heart rate in the 120s. Vital signs were otherwise stable. CBC showed leukocytosis of 26 with hemoglobin of 8.2 and MCV of 109.7. INR was 1.2. CMP showed sodium of 132, chloride of 92, bicarb of 36, BUN of 21, glucose 144, AST of 50 and alkaline phosphatase of 148. Lactic acid was 3.1. Ammonia was negative. Troponin was less than 0.012. BNP was 3310 chest x-ray show cardiomegaly with small left-sided pleural effusion or fluid collection and associated left lower lobe acute infiltrate/atelectasis. Brain CT was negative for acute finding. COVID-19 was positive. Influenza flu negative. Urinalysis showed large blood, large leukocyte esterase with moderate bacteria, moderate mucus and many yeast. Patient is admitted for sepsis with infectious disease consultation. Patient was started on vancomycin and cefepime for treatment of sepsis. Infectious disease was consulted. Blood culture came back positive for E. coli. Antibiotics were switched to Rocephin. She was noted to have a drop in her hemoglobin from 8.2-5.3 which was thought to be dilutional as all of her cell lines dropped. 2 unit of PRBC was ordered and hemoglobin improved to 9. Patient developed vaginal bleeding overnight and her Eliquis was discontinued. HOUSEKEEPING WORKER was consulted and recommended continued monitoring for worsening of her vaginal bleeding. CTA chest was ordered because of her elevated d-dimer which showed occlusive pulmonary embolus lobar, segmental and more distal branches of the l eft lower lobe along with small left pleural effusion. Pulmonology was consulted and recommended reinitiating Eliquis. Patient was seen and examined this morning. No acute events overnight. Patient reports improvement in dry cough since starting Tessalon. She appears more energized and awake this morning. She has some vaginal bleeding overnight, minimal as per RN. General: non toxic, no distress, appears at stated age Derm: warm, dry Head: atraumatic, normocephalic, symmetric Eyes: EOMI, no lid lag, anicteric sclera Mouth: no lip lesion, mucus membranes moist Cardiovascular: Irregularly irregular, no murmur Lungs: Decreased BS bilateral, no rhonchi, no rales , no accessory muscle use Abdominal: soft, suprapubic tenderness, no guarding, no appreciable organomegaly Ext: no gross muscle atrophy, no edema, no contractures Neuro: no focal neuro deficits Psych: Alert, oriented x 3ures #Sepsis with gram-negative bacteremia #Pulmonary embolus #Urinary tract infection #COVID-19 pneumonia #Macrocytic anemia #Vaginal bleeding Resolved: Acute hypoxic respiratory failure, Acute metabolic encephalopathy Chronic conditions: stage IV uterine cancer with metastasis, hypertension, hyperlipidemia, diabetes, iron deficiency anemia, and permanent atrial fibrillation Based on my assessment of this patient, this patient meets a moderate complexity level of care. I have reviewed the following multi site leasing consultant notes: None. I have reviewed the results of the following tests: CBC shows leukocytosis of 10.88 and hemoglobin of 8.3 with MCV of 108 along with platelet count 132. Renal studies show normal creatinine and GFR 74. [id number] glucose ranging from 101-194. Blood culture 10/28 negative at 48 hours. I have ordered the following tests: CBC for tomorrow morning. (vaginal bleeding) I have discussed the care of this patient with the following independent historian: None. I have independently interpreted the following test below: None. I have discussed the management of this patient with the following physician: None. This patient has a moderate risk of morbidity due to the following reasons: Patient has an acute diagnosis of sepsis likely related to UTI and COVID-19 pneumonia that poses a threat to life or bodily function. She has also been diagnosed with a pulmonary embolus. Blood cultures are positive for E. coli. Patient will be switched to Rocephin 2 g IV daily. Telemetry monitoring will be continued. Repeat blood cultures negative so far. Infectious disease on board. Her CTA chest is positive for PE. Venous Doppler negative for DVT. Her PE is performed given her history of metastatic cancer and hypercoagulable state. She was initially started on Eliquis 5 mg by mouth twice a day for anticoagulation for A-Fib which is not therapeutic for acute PE. Continue Eliquis 10 mg by mouth twice a day for 7 days followed by 5 mg by mouth twice a day indefinitely. Her hemoglobin has improved after transfusing 2 units PRBC, slightly downtrending today. There is no indication for blood transfusion. Eliquis for DVT prophylaxis. Patient would like to be NO CODE. Objective - Vital Signs Vital signs: Vital Signs Temp 99.9 F H 10/31/22 07:21 Pulse 76 10/31/22 07:21 Resp 20 10/31/22 09:45 BP 127/66 10/31/22 07:21 Pulse Ox 93 L 10/31/22 07:21 FiO2 Intake & Output 10/30/22 10/31/22 10/31/22 18:59 06:59 18:59 Intake Total 0 250 Output Total 600 500 Balance -600 -500 250 Intake: Oral 0 250 Output: Urine 600 500 Uretheral (Bryant) 400 Other: Voiding Method Indwelling Catheter Indwelling Catheter Indwelling Catheter - Labs CBC & Chem 7: 10/31/22 07:22 10/31/22 07:22 Labs: Abnormal Lab Results - Last 24 Hours (Table) 10/30/22 10/30/22 10/31/22 Range/Units 16:31 20:11 07:22 WBC 10.88 H (4.50-10.00) X 10*3/uL RBC 2.49 L (4.10-5.20) X 10*6/uL Hgb 8.3 L (12.0-15.0) g/dL Hct 26.9 L (37.2-46.3) % MCV 108.0 H (80.0-97.0) fL MCH 33.3 H (27.0-32.0) pg MCHC 30.9 L (32.0-37.0) g/dL RDW 19.5 H (11.5-14.5) % Plt Count 132 L (140-440) X 10*3/uL Absolute Nucleated RBC 0.02 H (0.00-0.00) X 10*3/uL Immature Gran # 0.09 H (0.00-0.04) X 10*3/uL Neutrophils # 8.65 H (1.80-7.70) X 10*3/uL NRBC/100 WBC Diff 0.2 H (0.0-0.0) /100 WBCS POC Glucose (mg/dL) 154 H 194 H (70-110) mg/dL 10/31/22 Range/Units 11:25 WBC (4.50-10.00) X 10*3/uL RBC (4.10-5.20) X 10*6/uL Hgb (12.0-15.0) g/dL Hct (37.2-46.3) % MCV (80.0-97.0) fL MCH (27.0-32.0) pg MCHC (32.0-37.0) g/dL RDW (11.5-14.5) % Plt Count (140-440) X 10*3/uL Absolute Nucleated RBC (0.00-0.00) X 10*3/uL Immature Gran # (0.00-0.04) X 10*3/uL Neutrophils # (1.80-7.70) X 10*3/uL NRBC/100 WBC Diff (0.0-0.0) /100 WBCS POC Glucose (mg/dL) 123 H (70-110) mg/dL Microbiology - Last 24 Hours (Table) 10/28/22 14:30 Blood Culture - Preliminary Blood No Growth after 48 hours 10/28/22 14:15 Blood Culture Gram Stain - Preliminary Blood Blood Culture - Preliminary Escherichia coli
[2022-10-31 16:59] LABS: Glucose,Whole Blood 127 mg/dL (70-110)
--- NOTE | 2022-10-31 18:07 | P.CONS ---
History of Present Illness - Reason for Consult Consult date: 10/30/22 hx uterine cancer Requesting physician: Sherri Segovia - Chief Complaint confusion, SOB - History of Present Illness Patient is a 67-year-old with a medical history of endometrial adenocarcinoma, hypertension, hyperlipidemia, diabetes, iron deficiency anemia, and atrial fibri llation. We were consulted for hx of metastatic uterine cancer. She is a patient of Dr. Paz, and is currently on lenvima/keytruda treatment, however, due to multiple hospitalizations and rehab, pt has only received 1 cycle of keytruda on 09/17/22, and stopped lenvima about 5 days before last hospitalization, on 09/29/22. She presented to the ER from her rehab center for altered mental status. Bj castle's reports pt has been having confusion and worsening generalized weakness over the last 1 month. Before last hospitalization last month pt had UTI and was treated on PO regimen, but was ultimately admitted to the hospital for encephalopathy. Pt was then discharged to rehab and since has been diagnosed with COVID and reports persistent hacking cough and generalized weakness. She also reports increasing vaginal bleeding over the last 1 month that worsened yesterday. She is on elquis for hx a-fib and right ICA stenosis couple weeks. Eliquis was held upon admission due to worsening of vaginal bleeding. Hemoglobin dropped to 5.3, and 2 units of PRBCs were given. Hemoglobin stable, 9.0 today. CTA chest showed occlusive PE, lobar, segmental, and distal branches of LLL, with no noted right heart strain. Small left pleural effusion and airspace disease, and number of new pulmonary nodules in LINDSAY and left base measuring up to 2.7cm, metastatic disease should be excluded. [facility]ER was consulted and spoke with IM, and they agreed that benefits of eliquis for PE outweigh risks of vagi nal bleeding as this is unavoidable. She also has preliminary blood cultures positive for e. coli and was started on rocephin. ID following Oncology history: Patient presented with abnormal vaginal spotting (first noticed in March/2022) and worsening abdominal pain, she had a CT scan of abdomen/pelvis on 06/02/2022 which revealed enlarged uterus, large left adnexal lesion, large 4.7 x 2.8 cm l eft common iliac chain node, soft tissue lesion at dome of bladder measured 4.9 cm. She had endometrial biopsy on 05/13/2022 which was positive for adenocarcinoma. ZELALEM,HER2/JOSEMANUEL negative,ER/NM weakly positive. On 07/02/2022, she started single agent carboplatin and completed 3 cycles on 08/13/22. On 08/23/2022, repeat CT scan of chest/abdomen/pelvis revealed enlarging LN. Due to progression patient was started on keytruda and lenvima at reduced dose. Keytruda cycle 1 was completed on 09/17/22. Last dose of Lenvima taken on about 09/29/22. Treatment has been on hold due to multiple hospitalizations and subsequent rehab. Review of Systems 10 point ROS is negative except as stated in HPI Past Medical History Past Medical History: Atrial Fibrillation, Diabetes Mellitus, Hyperlipidemia, Hypertension, Thyroid Disorder Additional Past Medical History / Comment(s): Neuropathy, skin cancer in nose, gout, stage IV uterine cancer History of Any Multi-Drug Resistant Organisms: None Reported Past Surgical History: Section, Orthopedic Surgery Additional Past Surgical History / Comment(s): ulnar nerve surgery Past Anesthesia/Blood Transfusion Reactions: No Reported Reaction Past Psychological History: No Psychological Hx Reported Past Alcohol Use History: None Reported Past Drug Use History: None Reported Medications and Allergies Home Medications Medication Instructions Recorded Confirmed Type Atorvastatin [Lipitor] 20 mg PO HS 10/05/22 10/28/22 History Cholecalciferol [Vitamin D3 (25 50 mcg PO DAILY 10/05/22 10/28/22 History Mcg = 1000 Iu)] Cyclobenzaprine [Flexeril] 10 mg PO TID PRN 10/05/22 10/28/22 History Digoxin [Digitek] 125 mcg PO SUTUWETHSA 10/05/22 10/28/22 History Digoxin [Digitek] 187.5 mcg PO MOFR 10/05/22 10/28/22 History Famotidine [Pepcid] 20 mg PO Q12H 10/05/22 10/28/22 History Ferrous Sulfate [Iron (65 MG 650 mg PO DAILY 10/05/22 10/28/22 History Elemental)] Levothyroxine Sodium [Synthroid] 175 mcg PO DAILY 10/05/22 10/28/22 History Losartan [Cozaar] 50 mg PO DAILY 10/05/22 10/28/22 History Metoprolol Tartrate [Lopressor] 100 mg PO BID 10/05/22 10/28/22 History Victor-3 Fatty Acids [Victor-3] 1,000 mg PO TID 10/05/22 10/28/22 History Thiamine [Vitamin B-1] 100 mg PO DAILY 10/05/22 10/28/22 History Vit C/E/Zn/Coppr/Lutein/Zeaxan 1 cap PO Q12H 10/05/22 10/28/22 History [Preservision Areds 2 Softgel] allopurinoL 200 mg PO DAILY 10/05/22 10/28/22 History metFORMIN HCL ER [Glucophage XR] 500 mg PO DAILY 10/05/22 10/28/22 History Acetaminophen Tab [Tylenol] 650 mg PO Q6HR PRN tab 10/18/22 10/28/22 Rx Aspirin 81 mg PO DAILY tab 10/18/22 10/28/22 Rx Butalb/APAP/Caff 50-325-40Mg 1 tab PO Q4H PRN #6 tablet 10/18/22 10/28/22 Rx [Fioricet 50-325-40] Doxycycline [Vibramycin] 100 mg PO BID #41 cap 10/18/22 10/28/22 Rx Fluticasone Nasal [place] [Flonase 2 spray EA NOSTRIL DAILY ml 10/18/22 10/28/22 Rx Nasal [place]] Gabapentin [Neurontin] 400 mg PO QID #12 cap 10/18/22 10/28/22 Rx Mag Hydrox/Al Hydrox/Simeth 30 ml PO TID ml 10/18/22 10/28/22 Rx [Maalox] Meclizine [Antivert] 25 mg PO TID PRN tab 10/18/22 10/28/22 Rx Sennosides [Senokot] 8.6 mg PO BID PRN tab 10/18/22 10/28/22 Rx guaiFENesin [Mucinex] 1,200 mg PO Q12HR tab 10/18/22 10/28/22 Rx Apixaban [Eliquis] 5 mg PO Q12H 10/28/22 10/28/22 History Ascorbic Acid [Vitamin C] 500 mg PO DAILY 10/28/22 10/28/22 History HYDROcodone/APAP 5-325MG [[place] 1 tab PO TID PRN 10/28/22 10/28/22 History 5-325] Ondansetron [Zofran] 4 mg PO Q4H PRN 10/28/22 10/28/22 History Zinc Gluconate [Zinc] 50 mg PO DAILY 10/28/22 10/28/22 History predniSONE See Taper PO DIRECTED 10/28/22 10/28/22 History Allergies Allergy/AdvReac Type Severity Reaction Status Date / Time bacitracin Allergy Rash/Hives Verified 10/28/22 15:04 [From Neosporin ([id number])] clarithromycin [From Biaxin] Allergy Rash/Hives Verified 10/28/22 15:04 codeine Allergy Rash/Hives Verified 10/28/22 15:04 neomycin Allergy Rash/Hives Verified 10/28/22 15:04 [From Neosporin ([id number])] polymyxin B Allergy Rash/Hives Verified 10/28/22 15:04 [From Neosporin ([id number])] Physical Exam Vitals: Vital Signs Temp Pulse Pulse Resp BP BP Pulse Ox 10/30/22 09:56 99 10/30/22 07:09 98.7 F 80 15 122/69 100 10/30/22 02:07 97.5 F L 74 16 124/57 10/30/22 01:19 98.0 F 69 16 105/63 100 10/29/22 23:32 98.3 F 76 18 106/62 100 10/29/22 23:12 98.4 F 74 18 109/65 99 10/29/22 23:03 98.7 F 69 20 108/62 99 10/29/22 21:40 100.5 F H 10/29/22 20:00 100.2 F H 87 20 168/79 96 10/29/22 17:16 99.5 F 68 16 145/76 100 10/29/22 16:56 99.5 F 79 15 147/74 99 10/29/22 16:52 99.8 F H 74 15 147/66 10/29/22 13:21 98.5 F 70 17 129/75 100 Intake and Output 10/29/22 10/30/22 10/30/22 22:59 06:59 14:59 Intake Total 275 430 Output Total 600 500 Balance -325 -70 Intake: Oral 120 Blood Product 275 310 Rc As-1 Unit 310 [id number] Rc Pheresis As-3 Unit 275 [id number] Output: Urine 600 500 Uretheral (Bryant) 400 Other: Voiding Method Indwelling Catheter Indwelling Catheter - Constitutional General appearance: no acute distress, obese - EENT Eyes: anicteric sclerae, EOMI ENT: hearing grossly normal - Respiratory Respiratory: bilateral: CTA - Cardiovascular Rhythm: irregularly irregular Heart sounds: normal: S1, S2 Abnormal Heart Sounds: no systolic murmur, no diastolic murmur, no rub, no S3 Gallop, no S4 Gallop, no click, no other - Gastrointestinal firmness to lower abdomen, mass palpated in RLQ, tenderness to lower abdomen General gastrointestinal: tenderness - Integumentary Integumentary: pale - Musculoskeletal Musculoskeletal: generalized weakness - Psychiatric Psychiatric: A&O x's 3, appropriate affect, intact judgment & insight Results CBC & Chem 7: 10/31/22 07:22 10/31/22 07:22 Labs: Abnormal Lab Results - Last 24 Hours (Table) 10/29/22 10/29/22 10/29/22 Range/Units 12:30 16:30 21:26 WBC (3.8-10.6) k/uL RBC (3.80-5.40) m/uL Hgb (11.4-16.0) gm/dL Hct (34.0-46.0) % MCV (80.0-100.0) fL RDW (11.5-15.5) % Sodium (137-145) mmol/L Carbon Dioxide (22-30) mmol/L BUN (7-17) mg/dL Glucose (74-99) mg/dL POC Glucose (mg/dL) 182 H 150 H (70-110) mg/dL Calcium (8.4-10.2) mg/dL Crossmatch See Detail 10/30/22 10/30/22 10/30/22 Range/Units 06:00 06:18 06:18 WBC 12.3 H (3.8-10.6) k/uL RBC 2.62 L (3.80-5.40) m/uL Hgb 9.0 L (11.4-16.0) gm/dL Hct 27.2 L (34.0-46.0) % MCV 103.8 H D (80.0-100.0) fL RDW 18.2 H (11.5-15.5) % Sodium 133 L (137-145) mmol/L Carbon Dioxide 32 H (22-30) mmol/L BUN 20 H (7-17) mg/dL Glucose 112 H (74-99) mg/dL POC Glucose (mg/dL) 126 H (70-110) mg/dL Calcium 8.2 L (8.4-10.2) mg/dL Crossmatch 10/30/22 Range/Units 11:48 WBC (3.8-10.6) k/uL RBC (3.80-5.40) m/uL Hgb (11.4-16.0) gm/dL Hct (34.0-46.0) % MCV (80.0-100.0) fL RDW (11.5-15.5) % Sodium (137-145) mmol/L Carbon Dioxide (22-30) mmol/L BUN (7-17) mg/dL Glucose (74-99) mg/dL POC Glucose (mg/dL) 183 H (70-110) mg/dL Calcium (8.4-10.2) mg/dL Crossmatch Microbiology - Last 24 Hours (Table) 10/28/22 14:29 Urine Culture - Final Urine,Voided 10/28/22 14:15 Blood Culture Gram Stain - Preliminary Blood Blood Culture - Preliminary Escherichia coli 10/28/22 14:30 Blood Culture - Preliminary Blood No Growth after 24 hours 10/28/22 14:15 Blood Culture - Final Blood CT scan - chest: report reviewed Assessment and Plan (1) Endometrial carcinoma Current Visit: No Status: Acute Priority: High Code(s): C54.1 - MALIGNANT NEOPLASM OF ENDOMETRIUM SNOMED Code(s): 009375252 (2) Anemia Current Visit: Yes Status: Acute Priority: High Code(s): D64.9 - ANEMIA, UNSPECIFIED SNOMED Code(s): 119084659 Plan: Anemia -Hgb dropped to 5.3 after admission, 2 units PRBCs given. Hgb stable 9.0 today -Pt is experiencing persistent vaginal bleeding. On eliquis for hx of a-fib and right ICA stenosis. Eliquis initially held due to vaginal bleeding. CTA chest revealed PE of left lung. Pt was then restarted on eliquis as benefits of treatment for PE was thought to outweigh the risks of vaginal bleeding -Will continue to closely monitor counts, CBC daily -Please transfuse for hemoglobin less than 7 or if symptomatic Metastatic uterine cancer: -Completed 3 cycles of carboplatin on 08/13/22. Due to progression found on CT scan in 09/06, patient was started on keytruda and lenvima at reduced dose. Keytruda cycle 1 was completed on 09/17/22. Last dose of Lenvima taken on about 09/29/22. Treatment has been on hold due to multiple hospitalizations and subsequent rehab. -Will continue to hold treatment at this time, until pt recovers. Will schedule f/u with Dr. Paz once pt recovers to discuss treatment options and possible progression noted on CTA chest -Will place f/u appt in discharge plan. Pt updated on POC and is agreeable
--- NOTE | 2022-10-31 18:19 | P.PN ---
Subjective Progress Note Date: 10/31/22 Principal diagnosis: hx of uterine cancer, anemia Upon visit today, pt is resting comfortably in bed. She reports feeling overall well, but is c/o persiting cough that is bothering her. She states she has been taking tessalon with improvement in symptoms. Pt also reports yesterday she had passed a large blood clot, vaginally. But since has had minimal vaginal bleeding. She reports mild lower abdominal discomfort. Denies n/v/d, melena, blood in stool, dizziness, fever and chills. Objective - Vital Signs Vital signs: Vital Signs Temp 99.2 F 10/31/22 14:23 Pulse 74 10/31/22 14:23 Resp 16 10/31/22 14:23 BP 118/75 10/31/22 14:23 Pulse Ox 93 L 10/31/22 14:23 FiO2 Intake & Output 10/30/22 10/31/22 10/31/22 18:59 06:59 18:59 Intake Total 0 850 Output Total 600 500 800 Balance -600 -500 50 Intake: Oral 0 850 Output: Urine 600 500 800 Uretheral (Bryant) 400 Other: Voiding Method Indwelling Catheter Indwelling Catheter Indwelling Catheter - Constitutional General appearance: Present: no acute distress, obese - EENT Eyes: Present: anicteric sclerae, EOMI ENT: Present: hearing grossly normal - Respiratory Respiratory: bilateral: CTA - Cardiovascular Rhythm: irregularly irregular Heart sounds: normal: S1, S2 Abnormal Heart Sounds: Present: systolic murmur - Gastrointestinal Gastrointestinal Comment(s): firmness to lower abdomen, palpable mass in RLQ, mild tenderness to lower abdomen, no guarding or rebound noted General gastrointestinal: Present: tenderness - Integumentary Integumentary: Present: pale - Musculoskeletal Musculoskeletal: Present: generalized weakness - Psychiatric Psychiatric: Present: A&O x's 3, appropriate affect, intact judgment & insight - Labs CBC & Chem 7: 10/31/22 07:22 10/31/22 07:22 Labs: Abnormal Lab Results - Last 24 Hours (Table) 10/30/22 10/31/22 10/31/22 Range/Units 20:11 07:22 11:25 WBC 10.88 H (4.50-10.00) X 10*3/uL RBC 2.49 L (4.10-5.20) X 10*6/uL Hgb 8.3 L (12.0-15.0) g/dL Hct 26.9 L (37.2-46.3) % MCV 108.0 H (80.0-97.0) fL MCH 33.3 H (27.0-32.0) pg MCHC 30.9 L (32.0-37.0) g/dL RDW 19.5 H (11.5-14.5) % Plt Count 132 L (140-440) X 10*3/uL Absolute Nucleated RBC 0.02 H (0.00-0.00) X 10*3/uL Immature Gran # 0.09 H (0.00-0.04) X 10*3/uL Neutrophils # 8.65 H (1.80-7.70) X 10*3/uL NRBC/100 WBC Diff 0.2 H (0.0-0.0) /100 WBCS POC Glucose (mg/dL) 194 H 123 H (70-110) mg/dL 10/31/22 Range/Units 16:58 WBC (4.50-10.00) X 10*3/uL RBC (4.10-5.20) X 10*6/uL Hgb (12.0-15.0) g/dL Hct (37.2-46.3) % MCV (80.0-97.0) fL MCH (27.0-32.0) pg MCHC (32.0-37.0) g/dL RDW (11.5-14.5) % Plt Count (140-440) X 10*3/uL Absolute Nucleated RBC (0.00-0.00) X 10*3/uL Immature Gran # (0.00-0.04) X 10*3/uL Neutrophils # (1.80-7.70) X 10*3/uL NRBC/100 WBC Diff (0.0-0.0) /100 WBCS POC Glucose (mg/dL) 127 H (70-110) mg/dL Microbiology - Last 24 Hours (Table) 10/28/22 14:30 Blood Culture - Preliminary Blood No Growth after 72 hours 10/28/22 14:15 Blood Culture Gram Stain - Final Blood Blood Culture - Final Escherichia coli Assessment and Plan (1) Endometrial carcinoma Current Visit: No Status: Acute Priority: High Code(s): C54.1 - MALIGNANT NEOPLASM OF ENDOMETRIUM SNOMED Code(s): 620158291 (2) Anemia Current Visit: Yes Status: Acute Priority: High Code(s): D64.9 - ANEMIA, UNSPECIFIED SNOMED Code(s): 722555715 Plan: Anemia -Hgb dropped to 5.3 after admission, 2 units PRBCs given. Hgb stable 8.3 today -Reports passing large blood clot vaginally yesterday, but improvement in bleeding since. On eliquis for hx of a-fib and right ICA stenosis. Eliquis initially held due to vaginal bleeding, however, CTA chest revealed PE of left lung. Pt was then restarted on eliquis as benefits of treatment for PE was thought to outweigh the risks of vaginal bleeding. Pt denies SOB and chest pain -Will continue to closely monitor counts, CBC daily -Please transfuse for hemoglobin less than 7 or if symptomatic Metastatic uterine cancer: -Completed 3 cycles of carboplatin on 08/13/22. Due to progression found on CT scan in 09/06, patient was started on keytruda and lenvima at reduced dose. Keytruda cycle 1 was completed on 09/17/22. Last dose of Lenvima taken on about 09/29/22. Treatment has been on hold due to multiple hospitalizations and subsequent rehab. -Will continue to hold treatment at this time, until pt recovers. Will schedule f/u with Dr. Paz once pt recovers to discuss treatment options and possible progression noted on CTA chest -Will place f/u appt in discharge plan.
[2022-10-31 20:21] LABS: Glucose,Whole Blood 135 mg/dL (70-110)
[2022-10-31] MEDS: ATORVASTATIN 20 MG TAB PO SCH (20:47)
--- NOTE | 2022-10-31 22:59 | P.PN ---
Subjective Progress Note Date: 10/31/22 Principal diagnosis: E. coli bacteremia Patient is a 67-year-old female with a past medical history significant for stage IV uterine cancer hypertension hyperlipidemia atrial fibrillation and diabetes mellitus , who was brought in to the hospital for evaluation of mental status changes his work of breathing and tachycardia and was recently diagnosed with Covid 19 at the intermediate facility. On today's evaluation that is 10/31/2022 the patient remains to be afebrile, the patient is currently breathing comfortably on room air today, the patient denies having any chest pain or shortness of breath occasional cough that has some abdominal discomfort but no diarrhea Objective - Vital Signs Vital signs: Vital Signs Temp 98.3 F 10/31/22 02:44 Pulse 73 10/31/22 02:44 Resp 20 10/31/22 09:45 BP 130/78 10/31/22 02:44 Pulse Ox 94 L 10/31/22 02:44 FiO2 Intake & Output 10/30/22 10/31/22 10/31/22 18:59 06:59 18:59 Intake Total 0 250 Output Total 600 500 Balance -600 -500 250 Intake: Oral 0 250 Output: Urine 600 500 Uretheral (Bryant) 400 Other: Voiding Method Indwelling Catheter Indwelling Catheter Indwelling Catheter - Exam GENERAL DESCRIPTION: An elderly female lying in bed in no distress RESPIRATORY SYSTEM: Unlabored breathing , decreased breath sounds at bases HEART: S1 S2 regular rate and rhythm , ABDOMEN: Soft , no tenderness EXTREMITIES: No edema feet - Labs CBC & Chem 7: 10/31/22 07:22 10/31/22 07:22 Labs: Abnormal Lab Results - Last 24 Hours (Table) 10/30/22 10/30/22 10/30/22 Range/Units 11:48 16:31 20:11 POC Glucose (mg/dL) 183 H 154 H 194 H (70-110) mg/dL Microbiology - Last 24 Hours (Table) 10/28/22 14:30 Blood Culture - Preliminary Blood No Growth after 48 hours 10/28/22 14:15 Blood Culture Gram Stain - Preliminary Blood Blood Culture - Preliminary Escherichia coli Assessment and Plan (1) E coli bacteremia Current Visit: Yes Status: Acute Code(s): R78.81 - BACTEREMIA; B96.20 - UNSP ESCHERICHIA COLI THE CAUSE OF DISEASES [facility] SNOMED Code(s): 468558976178 Plan: 1patient presented to hospital with sepsis in this patient who did have a fever tachycardia elevated white count elevated lactic acid now with evidence of gram- negative bacteremia source could be likely urinary however the patient also have left lower lobe infiltrate elevated procalcitonin and a possible component of gram-negative pneumonia. 2blood cultures has been repeated document clearance of bacteremia 3-Patient did recently tested positive for COVID-19 at the shelter for which treatment will be mostly supportive , patient is currently afebrile and not hypoxic on supplemental oxygen 4-patient blood culture had been finalized with E. coli possible urinary source patient to continue with Rocephin 2 g daily and will monitor clinical course closely
[2022-11-01] MEDS: ACETAMINOPHEN TAB 325 MG TAB PO PRN (02:30)
[2022-11-01] MEDS: HYDROcodone/APAP 5-325MG 1 EACH TAB PO PRN ×3 (05:43→21:47)
[2022-11-01] MEDS: BENZONATATE 100 MG CAP PO PRN ×3 (05:43→21:47)
[2022-11-01] MEDS: LEVOTHYROXINE 88 MCG TAB PO SCH (05:43)
[2022-11-01 05:52] LABS: Glucose,Whole Blood 111 mg/dL (70-110)
[2022-11-01 06:25] LABS: Anisocytosis Slight; Basophils % (A) 0 %; Eosinophils # (A) 0.2 k/uL (0-0.7); Eosinophils % (A) 2 %; HCT 26.2 % (34.0-46.0); HGB 8.6 gm/dL (11.4-16.0); Lymphocytes # (A) 1.4 k/uL (1.0-4.8); Lymphocytes % (A) 14 %; MCH 33.6 pg (25.0-35.0); MCHC 32.8 g/dL (31.0-37.0); MCV 102.5 fL (80.0-100.0); Macrocytosis Moderate; Mean Platelet Volume 7.9; Monocytes # (A) 0.5 k/uL (0-1.0); Monocytes % (A) 5 %; Neutrophils # (A) 7.9 k/uL (1.3-7.7); Neutrophils % (A) 76 %; Platelet Count 160 k/uL (150-450); Poikilocytosis Slight; RBC 2.56 m/uL (3.80-5.40); WBC 10.4 k/uL (3.8-10.6)
[2022-11-01] MEDS: GABAPENTIN 400 MG CAP PO SCH ×4 (09:04→21:47)
[2022-11-01] MEDS: FAMOTIDINE 20 MG TAB PO SCH ×2 (09:04→21:46)
[2022-11-01] MEDS: allopurinoL 100 MG TAB PO SCH (09:04)
[2022-11-01] MEDS: METOPROLOL TARTRATE 50 MG TAB PO SCH ×2 (09:05→21:47)
[2022-11-01] MEDS: DIGOXIN 62.5 MCG TAB PO SCH (09:05)
[2022-11-01] MEDS: FLUTICASONE 50MCG/SPRAY NASAL 16GM EA NOSTRIL SCH (09:05)
[2022-11-01] MEDS: APIXABAN 5 MG TAB PO SCH ×2 (09:05→21:46)
[2022-11-01 10:26] LABS: African American GFR (CKD) >90 (>60 ml/min/1.73 sqM); Anion Gap 2 mmol/L; Blood Urea Nitrogen 16 mg/dL (7-17); Calcium 8.2 mg/dL (8.4-10.2); Carbon Dioxide 32 mmol/L (22-30); Chloride 97 mmol/L (98-107); Glucose 90 mg/dL (74-99); Non-African American GFR(CKD) 87 (>60 ml/min/1.73 sqM); Potassium 4.1 mmol/L (3.5-5.1); Sodium 131 mmol/L (137-145)
[2022-11-01 11:58] LABS: Glucose,Whole Blood 129 mg/dL (70-110)
--- NOTE | 2022-11-01 12:28 | P.PN ---
Subjective Progress Note Date: 11/01/22 Patient is a very pleasant 67-year-old woman with a medical history of stage IV uterine cancer with metastasis, hypertension, hyperlipidemia, diabetes, iron deficiency anemia, and permanent atrial fibrillation. She was initially hospitalized on 10/05/22 for altered mentation and discharged on 10/18/22. There was concerns for aseptic meningitis given her history of keytruda and lenvima use. Stroke was ruled out with 2 MRI brains. Lumbar puncture was done which showed elevated total protein of 70, normal glucose, elevated total nucleated cells of 45 with predominance of mononuclear white blood cells. ID was consulted, and did not believe findings were consistent with bacterial meningitis. HSV and viral panel CSF was negative. She was also seen by vascular surgery for critical stenosis of the right ICA, recommended outpatient follow-up. She was initiated on Keppra for seizure prophylaxis by [facility]. She completed multiple days of Zosyn IV for presumed pneumonia. HIV and treponema were both nonreactive. Lyme screening IgG and IgM was positive at 2.05. Augmentin discontinued at that time and patient started on doxycycline 100 mg twice daily to complete a three-week course and follow up outpatient with ID. She was subsequently discharged to SNF. Patient presents back to the ED from SNF for worsening altered mentation, increased work of breathing and worsening tachycardia. Of note, patient was diagnosed with COVID-19 at SNF. In the ED, T-max was 101.3 Fahrenheit. She was tachycardic with heart rate in the 120s. Vital signs were otherwise stable. CBC showed leukocytosis of 26 with hemoglobin of 8.2 and MCV of 109.7. INR was 1.2. CMP showed sodium of 132, chloride of 92, bicarb of 36, BUN of 21, glucose 144, AST of 50 and alkaline phosphatase of 148. Lactic acid was 3.1. Ammonia was negative. Troponin was less than 0.012. BNP was 3310 chest x-ray show cardiomegaly with small left-sided pleural effusion or fluid collection and associated left lower lobe acute infiltrate/atelectasis. Brain CT was negative for acute finding. COVID-19 was positive. Influenza flu negative. Urinalysis showed large blood, large leukocyte esterase with moderate bacteria, moderate mucus and many yeast. Patient is admitted for sepsis with infectious disease consultation. Patient was started on vancomycin and cefepime for treatment of sepsis. Infectious disease was consulted. Blood culture came back positive for E. coli. Antibiotics were switched to Rocephin. She was noted to have a drop in her hemoglobin from 8.2-5.3 which was thought to be dilutional as all of her cell lines dropped. 2 unit of PRBC was ordered and hemoglobin improved to 9. Patient developed vaginal bleeding overnight and her Eliquis was discontinued. CLINICAL INTERVIEWER was consulted and recommended continued monitoring for worsening of her vaginal bleeding. CTA chest was ordered because of her elevated d-dimer which showed occlusive pulmonary embolus lobar, segmental and more distal branches of the l eft lower lobe along with small left pleural effusion. Pulmonology was consulted and recommended reinitiating Eliquis. Repeat blood cultures have been negative so far. Patient was seen and examined this morning. No acute events overnight. Patient reports fatigue. She appears more energized and awake this morning. T-max of 101.7 Fahrenheit last night. General: non toxic, no distress, appears at stated age Derm: warm, dry Head: atraumatic, normocephalic, symmetric Eyes: EOMI, no lid lag, anicteric sclera Mouth: no lip lesion, mucus membranes moist Cardiovascular: Irregularly irregular, no murmur Lungs: Decreased BS bilateral, no rhonchi, no rales , no accessory muscle use Abdominal: soft, suprapubic tenderness, no guarding, no appreciable organomegaly Ext: no gross muscle atrophy, no edema, no contractures Neuro: no focal neuro deficits Psych: Alert, oriented x 3ures #Sepsis with gram-negative bacteremia #Pulmonary embolus #Urinary tract infection #COVID-19 pneumonia #Macrocytic anemia #Vaginal bleeding Resolved: Acute hypoxic respiratory failure, Acute metabolic encephalopathy Chronic conditions: stage IV uterine cancer with metastasis, hypertension, hyperlipidemia, diabetes, iron deficiency anemia, and permanent atrial fibrillation Based on my assessment of this patient, this patient meets a moderate complexity level of care. I have reviewed the following contract consultant notes: None. I have reviewed the results of the following tests: CBC shows hemoglobin of 8.6 with MCV of 102.5 which is stable. BMP shows sodium of 131, chloride of 97, calcium of 8.2 and bicarb of 32. Dcato-us-wcsx glucose ranging from 111-129 over the past 24 hours. Blood culture 10/31 negative at 24 hours. I have ordered the following tests: CBC for tomorrow morning. (Vaginal bleeding given patient on Eliquis) I have discussed the care of this patient with the following independent historian: None. I have independently interpreted the following test below: None. I have discussed the management of this patient with the following physician: None. This patient has a moderate risk of morbidity due to the following reasons: Patient has an acute diagnosis of sepsis likely related to UTI and COVID-19 pneumonia that poses a threat to life or bodily function. She has also been diagnosed with a pulmonary embolus. Blood cultures are positive for E. coli. Patient will be switched to Rocephin 2 g IV daily. Telemetry monitoring will be continued. Repeat blood cultures negative so far. Infectious disease on board. Her CTA chest is positive for PE. Venous Doppler negative for DVT. Her PE is performed given her history of metastatic cancer and hypercoagulable state. She was initially started on Eliquis 5 mg by mouth twice a day for anticoagulation for A-Fib which is not therapeutic for acute PE. Continue Eliquis 10 mg by mouth twice a day for 7 days followed by 5 mg by mouth twice a day indefinitely. Her hemoglobin has improved after transfusing 2 units PRBC, slightly downtrending today. There is no indication for blood transfusion. PT and OT has been consulted to work this patient. Anticipated discharge back to SNF when medically appropriate. Eliquis for DVT prophylaxis. Patient would like to be NO CODE. Objective - Vital Signs Vital signs: Vital Signs Temp 98.4 F 11/01/22 07:57 Pulse 78 11/01/22 07:57 Resp 17 11/01/22 07:57 BP 144/76 11/01/22 07:57 Pulse Ox 96 11/01/22 07:57 FiO2 Intake & Output 10/31/22 11/01/22 11/01/22 18:59 06:59 18:59 Intake Total 850 0 Output Total 800 850 Balance 50 -850 Intake: Oral 850 0 Output: Gastric Drainage 400 Urine 800 450 Uretheral (Bryant) 300 Other: Voiding Method Indwelling Catheter Indwelling Catheter Indwelling Catheter - Labs CBC & Chem 7: 11/01/22 05:46 11/01/22 05:46 Labs: Abnormal Lab Results - Last 24 Hours (Table) 10/31/22 10/31/22 11/01/22 Range/Units 16:58 20:19 05:46 RBC 2.56 L (3.80-5.40) m/uL Hgb 8.6 L (11.4-16.0) gm/dL Hct 26.2 L (34.0-46.0) % MCV 102.5 H (80.0-100.0) fL RDW 17.0 H (11.5-15.5) % Neutrophils # 7.9 H (1.3-7.7) k/uL Sodium (137-145) mmol/L Chloride (98-107) mmol/L Carbon Dioxide (22-30) mmol/L POC Glucose (mg/dL) 127 H 135 H (70-110) mg/dL Calcium (8.4-10.2) mg/dL 11/01/22 11/01/22 11/01/22 Range/Units 05:46 05:49 11:56 RBC (3.80-5.40) m/uL Hgb (11.4-16.0) gm/dL Hct (34.0-46.0) % MCV (80.0-100.0) fL RDW (11.5-15.5) % Neutrophils # (1.3-7.7) k/uL Sodium 131 L (137-145) mmol/L Chloride 97 L (98-107) mmol/L Carbon Dioxide 32 H (22-30) mmol/L POC Glucose (mg/dL) 111 H 129 H (70-110) mg/dL Calcium 8.2 L (8.4-10.2) mg/dL Microbiology - Last 24 Hours (Table) 10/31/22 07:22 Blood Culture - Preliminary Blood No Growth after 24 hours 10/28/22 14:30 Blood Culture - Preliminary Blood No Growth after 72 hours 10/28/22 14:15 Blood Culture Gram Stain - Final Blood Blood Culture - Final Escherichia coli
--- NOTE | 2022-11-01 15:03 | P.PN ---
Subjective Progress Note Date: 11/01/22 This is a pleasant 67-year-old female patient with a known history of stage IV uterine cancer maintained on lenvima and Keytruda in the outpatient setting, atrial fibrillation anticoagulated with Eliquis, chronic vaginal bleeding secondary to cancer, chronic indwelling Bryant catheter, diabetes mellitus, h ypothyroidism, hypertension, hyperlipidemia, carotid stenosis, Lyme disease being treated with doxycycline. She was just discharged from here on 10/18/2022 with Lyme disease, sinusitis, vertigo. She was brought into the emergency room 10/28/2022 with generalized weakness, altered mental status, shortness of breath and tachycardia from half-way facility. She had been diagnosed with COVID-[address] angiogram here revealed occlusive PE lobar, substance segmental and more distal branch the left lower lobe. No CT findings of right heart strain. There is a small left pleural effusion and airspace disease at the left base. A number of new pulmonary nodules left upper lobe and left lung base measuring up to 2.7 cm suspicious for metastatic disease. Dopplers of the lower extremities negative for DVT. She is seen today on the regular medical floor. She is laying flat in bed. Awake and alert in no acute distress. Maintaining O2 saturations in the 90s on 2 L/m per nasal cannula. Currently afebrile. No tachycardia. No tachypnea. Blood pressure stable. She did devel op recurrent vaginal bleeding with a hemoglobin drop to 5.3 and is status post 2 units of packed red blood cells. Current hemoglobin 9.0. She had been seen by RECYCLING COORDINATOR and they felt staying on Eliquis was more beneficial done stopping it. Pro- calcitonin level I.65. Urinalysis is positive for bacteria. She is given ceftriaxone. The patient is seen today 10/31/2022 in follow-up on the regular medical floor. She is more awake and alert. Denies any worsening shortness of breath, cough or congestion. Maintaining O2 saturations in the 90s on room air. No chest pain or discomfort. She is status post 2 units of packed red blood cells this admission. Current hemoglobin 8.3. Platelets 132. Denies any significant vaginal bleeding. Blood culture was positive for E. coli. White count 10.8. Creatinine 0.8. Glucose 123. She remains on ceftriaxone. Remains on Eliquis. The patient is seen today 11/01/2022 in follow-up on the regular medical floor. She is resting comfortably in bed. Awake and alert in no acute distress. Maintaining good O2 saturations in the 90s on room air. Normal saline at 10 MLS per hour. She is continued on anticoagulation in the form of Eliquis. Remains on antibiotics in the form of ceftriaxone. Tessalon Perles for her cough. Blood cultures were positive for E. coli. Urine culture revealed no growth. White count 10.4. Hemoglobin 8.6. Platelets 160. Sodium 131. Potassium 4.1. Bicarb 32. BUN 16. Creatinine 0.73. Glucose 111. Objective - Vital Signs Vital signs: Vital Signs Temp 98.1 F 11/01/22 13:47 Pulse 77 11/01/22 13:47 Resp 17 11/01/22 13:47 BP 123/77 11/01/22 13:47 Pulse Ox 97 11/01/22 13:47 FiO2 Intake & Output 10/31/22 11/01/22 11/01/22 18:59 06:59 18:59 Intake Total 850 0 118 Output Total 800 850 Balance 50 -850 118 Intake: Oral 850 0 118 Output: Gastric Drainage 400 Urine 800 450 Uretheral (Bryant) 300 Other: Voiding Method Indwelling Catheter Indwelling Catheter Indwelling Catheter - Exam GENERAL EXAM: Alert, pleasant 67-year-old female, resting comfortably in bed, on room air, comfortable in no apparent distress. HEAD: Normocephalic. EYES: Normal reaction of pupils, equal size. NOSE: Clear with pink turbinates. THROAT: No erythema or exudates. NECK: No masses, no JVD. CHEST: No chest wall deformity. LUNGS: Equal air entry with scattered rhonchi, crackles in left base. CVS: S1 and S2 normal with no audible murmur, irregular rhythm. ABDOMEN: No hepatosplenomegaly, normal bowel sounds, no guarding or rigidity. SPINE: No scoliosis or deformity SKIN: No rashes CENTRAL NERVOUS SYSTEM: No focal deficits, tone is normal in all 4 extremities. EXTREMITIES: There is no peripheral edema. No clubbing, no cyanosis. Peripheral pulses are intact. - Labs CBC & Chem 7: 11/01/22 05:46 11/01/22 05:46 Labs: Abnormal Lab Results - Last 24 Hours (Table) 10/31/22 10/31/2211/01/23 Range/Units 16:58 20:19 05:46 RBC 2.56 L (3.80-5.40) m/uL Hgb 8.6 L (11.4-16.0) gm/dL Hct 26.2 L (34.0-46.0) % MCV 102.5 H (80.0-100.0) fL RDW 17.0 H (11.5-15.5) % Neutrophils # 7.9 H (1.3-7.7) k/uL Sodium (137-145) mmol/L Chloride (98-107) mmol/L Carbon Dioxide (22-30) mmol/L POC Glucose (mg/dL) 127 H 135 H (70-110) mg/dL Calcium (8.4-10.2) mg/dL 11/01/22 11/01/22 11/01/22 Range/Units 05:46 05:49 11:56 RBC (3.80-5.40) m/uL Hgb (11.4-16.0) gm/dL Hct (34.0-46.0) % MCV (80.0-100.0) fL RDW (11.5-15.5) % Neutrophils # (1.3-7.7) k/uL Sodium 131 L (137-145) mmol/L Chloride 97 L (98-107) mmol/L Carbon Dioxide 32 H (22-30) mmol/L POC Glucose (mg/dL) 111 H 129 H (70-110) mg/dL Calcium 8.2 L (8.4-10.2) mg/dL Microbiology - Last 24 Hours (Table) 10/31/22 07:22 Blood Culture - Preliminary Blood No Growth after 24 hours 10/28/22 14:30 Blood Culture - Preliminary Blood No Growth after 72 hours 10/28/22 14:15 Blood Culture Gram Stain - Final Blood Blood Culture - Final Escherichia coli Assessment and Plan Assessment: Acute hypoxemic respiratory failure secondary to pulmonary emboli mostly in the segmental and distal branches of left lower lobe. Small left pleural effusion and airspace disease left base. Improved on room air COVID-19 infection without evidence of COVID-19 pneumonia Bacteria anemia secondary to E. coli suspect UTI Stage IV uterine cancer with metastasis including pulmonary nodules and left upper lobe and left base measuring up to 2.7 cm. Maintaining on Lenvima and Keytruda in the outpatient setting Acute on chronic vaginal bleeding secondary to above Acute anemia with hemoglobin dropped to 5.3, status post 2 units of packed red blood cells, current hemoglobin 8.6 Chronic atrial fibrillation anticoagulated with Eliquis Urinary tract infection, on Rocephin, cultures pending Chronic indwelling Bryant catheter Right carotid stenosis. Recent history of Lyme's disease treated with doxycycline History of hypertension Hyperlipidemia Diabetes mellitus Poor overall functional performance based on the above-mentioned comorbidities skilled nursing resident Plan: The patient was seen and evaluated Labs and medications reviewed Currently stable and on room air Plan is for discharge back to [facility] once cleared medically I have personally seen and examined the patient, performed the documentation and the assessment and plan as written. Number of minutes spent on the visit: 10.
[2022-11-01 16:57] LABS: Glucose,Whole Blood 122 mg/dL (70-110)
--- NOTE | 2022-11-01 17:28 | CDI ---
Documentation Clarification Form Date: 11/03/2022 4:55:50 PM From: Antonia Burkett RN, CCDS Admit Date: 10/28/2022 3:56:00 PM Patient Name: Jackelyn Love Visit Number: [id number] Discharge Date: ATTENTION: The Clinical Documentation Specialists (CDI) and [facility] Coding Staff appreciate your assistance in clarifying documentation. Please respond to the clarification below the line at the bottom and electronically sign. The CDI & [facility] Coding staff will review the response and follow-up if needed. Please note: Queries are made part of the Legal Health Record. If you have any questions, please contact the author of this message via ITS. Dr. Gabe Hernández UTI is documented in the H/P and subsequent progress notes and patient has chronic Bryant catheter on admission. Additional clarification regarding the etiology of the UTI is requested. History/Risk Factors: Stage IV uterine cancer with metastasis, Hypertension, Hyperlipidemia, Diabetes, Atrial Fibrillation, Iron deficiency anemia Clinical Indicators: 67-year-old female present for worsening altered mentation, increased work of breathing and worsening tachycardia. She was diagnosed with COVID-19 at [facility]. She has chronic Bryant catheter. 10/28 Ua: showed large blood, large leukocyte esterase with moderate bacteria, moderate mucus and many yeast. 10/28 Urine culture: Apperent skin and/or genital anupama 10/28 Blood culture: Escherichia coli 10/28 Lab results: WBC 26.0 HGB 8.2, HCT 25.3 Neutrophils 24.2, Na+ 132 BUN 21 Creatinine 0.78, 10/28 Lactic acid 3.1, 2.1, 3.0; SARS-Cov-2 (PCR) Detected Treatment: Cardiac/Telemetry monitoring Vancomycin 1,750 MG IVPB ONCE (PTD) 10/28-10/29 Cefepime HCL 2 GM IVPB Q 8 HRS 10/29 -10/30 Rocephin 2 GM Daily 10/30-11/01 Please clarify the etiology of the UTI, if known: [ x ] Bryant catheter, POA [ ] UTI not related to catheter [ ] Other condition, please specify [ ] Unable to determine (Template Last Revised: October 2020) MTDD
--- NOTE | 2022-11-01 18:07 | P.PN ---
Subjective Progress Note Date: 11/01/22 Principal diagnosis: endometrial adenocarcinoma In f/u pt did have a fever, Tmax 101.7F, she is not requiring O2, her cough is harsh, does not report hemoptysis or purulent sputum. She cont on eliquis for PE, no bleeding. She is confused at times but then other times she is not. No acute pain reported. Objective - Vital Signs Vital signs: Vital Signs Temp 98.4 F 11/01/22 07:57 Pulse 78 11/01/22 07:57 Resp 17 11/01/22 07:57 BP 144/76 11/01/22 07:57 Pulse Ox 96 11/01/22 07:57 FiO2 Intake & Output 10/31/22 11/01/22 11/01/22 18:59 06:59 18:59 Intake Total 850 0 Output Total 800 850 Balance 50 -850 Intake: Oral 850 0 Output: Gastric Drainage 400 Urine 800 450 Uretheral (Bryant) 300 Other: Voiding Method Indwelling Catheter Indwelling Catheter Indwelling Catheter - Constitutional General appearance: Present: cooperative, no acute distress, obese - EENT Eyes: Present: anicteric sclerae, EOMI ENT: Present: hearing grossly normal - Respiratory Details: resp even and unlabored - Neurologic Neurologic: Present: CNII-XII intact (grossly) - Musculoskeletal Musculoskeletal: Present: generalized weakness - Psychiatric Psychiatric: Present: appropriate affect - Labs CBC & Chem 7: 11/01/22 05:46 11/01/22 05:46 Labs: Abnormal Lab Results - Last 24 Hours (Table) 10/31/22 10/31/22 11/01/22 Range/Units 16:58 20:19 05:46 RBC 2.56 L (3.80-5.40) m/uL Hgb 8.6 L (11.4-16.0) gm/dL Hct 26.2 L (34.0-46.0) % MCV 102.5 H (80.0-100.0) fL RDW 17.0 H (11.5-15.5) % Neutrophils # 7.9 H (1.3-7.7) k/uL Sodium (137-145) mmol/L Chloride (98-107) mmol/L Carbon Dioxide (22-30) mmol/L POC Glucose (mg/dL) 127 H 135 H (70-110) mg/dL Calcium (8.4-10.2) mg/dL 11/01/22 11/01/22 11/01/22 Range/Units 05:46 05:49 11:56 RBC (3.80-5.40) m/uL Hgb (11.4-16.0) gm/dL Hct (34.0-46.0) % MCV (80.0-100.0) fL RDW (11.5-15.5) % Neutrophils # (1.3-7.7) k/uL Sodium 131 L (137-145) mmol/L Chloride 97 L (98-107) mmol/L Carbon Dioxide 32 H (22-30) mmol/L POC Glucose (mg/dL) 111 H 129 H (70-110) mg/dL Calcium 8.2 L (8.4-10.2) mg/dL Microbiology - Last 24 Hours (Table) 10/31/22 07:22 Blood Culture - Preliminary Blood No Growth after 24 hours 10/28/22 14:30 Blood Culture - Preliminary Blood No Growth after 72 hours 10/28/22 14:15 Blood Culture Gram Stain - Final Blood Blood Culture - Final Escherichia coli - Imaging and Cardiology CT scan - chest: report reviewed (CT 07/01/22, CTA 10/05/22 and CTA 10/29/22) Assessment and Plan (1) COVID-19 virus infection Current Visit: Yes Status: Acute Priority: High Code(s): U07.1 - COVID-19 SNOMED Code(s): 690001896 (2) AMS (altered mental status) Current Visit: Yes Status: Acute Priority: High Code(s): R41.82 - ALTERED MENTAL STATUS, UNSPECIFIED SNOMED Code(s): 492573878 (3) Adenocarcinoma of endometrium, stage 4 Current Visit: Yes Status: Acute Priority: High Code(s): C54.1 - MALIGNANT NEOPLASM OF ENDOMETRIUM SNOMED Code(s): 849543079 (4) Endometrial carcinoma Current Visit: Yes Status: Acute Priority: High Code(s): C54.1 - MALIGNANT NEOPLASM OF ENDOMETRIUM SNOMED Code(s): 517707819 Plan: Covid infection -Tx per IM, Pulm AMS -thought r/t lenvima. Pt has been of med for over 1 month now. Prev CSF was neg for malig. Her alertness is improved but, she still has moments where what she is saying does no make any sense. Cont off lenvima. Endometrial adenocarcinoma -She did not tolerate lenvima, only took for 1 week. This was stopped due to progressive physical and mental decline each day while on it. She received 1 keytruda. None of the brain imaging last inpt stay suggestive of RPLS, no mets, CSF was non-diagnostic. Hope to get pt back on IO in the future, once DC from rehab -All treatment on hold until pt completes rehab -Reviewed CT 07/01/22, CTA from 10/05/22 and CTA 10/29/22. The CTA from 10/29 was not compared to the CTA 10/05. 10/05 lt pulm nodule 2.5 x 1.4 cm and 2 other nodules. 10/29 lt apex 2.7 x 1.6cm, 9mm LINDSAY, and new lt pulm nodule up to 2.7cm-this is in the setting of covid. The lt ax LAD was no longer seen. Would wait until recovered form covid and rescan. -F/U with Dr. Paz 3-4 weeks Anemia -Hgb stable s/p 2 units PRBCs -Transfuse for Hgb <7 -No recent iron studies. Will be difficult to interpret after 2 units. Will check iron studies outpt.
[2022-11-01] MEDS: ATORVASTATIN 20 MG TAB PO SCH (21:46)
[2022-11-01 22:19] LABS: Glucose,Whole Blood 94 mg/dL (70-110)
--- NOTE | 2022-11-01 23:49 | P.PN ---
Subjective Progress Note Date: 11/01/22 Principal diagnosis: E. coli bacteremia Patient is a 67-year-old female with a past medical history significant for stage IV uterine cancer hypertension hyperlipidemia atrial fibrillation and diabetes mellitus , who was brought in to the hospital for evaluation of mental status changes his work of breathing and tachycardia and was recently diagnosed with Covid 19 at the correction facility. On today's evaluation that is 11/01/2022 the patient continues to be afebrile, the patient is breathing comfortably on room air , the patient denies having any chest pain or shortness of breath occasional cough that has some abdominal discomfort but no diarrhea Objective - Vital Signs Vital signs: Vital Signs Temp 98.4 F 11/01/22 07:57 Pulse 78 11/01/22 07:57 Resp 17 11/01/22 07:57 BP 144/76 11/01/22 07:57 Pulse Ox 96 11/01/22 07:57 FiO2 Intake & Output 10/31/22 11/01/22 11/01/22 18:59 06:59 18:59 Intake Total 850 0 Output Total 800 850 Balance 50 -850 Intake: Oral 850 0 Output: Gastric Drainage 400 Urine 800 450 Uretheral (Bryant) 300 Other: Voiding Method Indwelling Catheter Indwelling Catheter Indwelling Catheter - Exam GENERAL DESCRIPTION: An elderly female lying in bed in no distress RESPIRATORY SYSTEM: Unlabored breathing , decreased breath sounds at bases HEART: S1 S2 regular rate and rhythm , ABDOMEN: Soft , no tenderness EXTREMITIES: No edema feet - Labs CBC & Chem 7: 11/01/22 05:46 11/01/22 05:46 Labs: Abnormal Lab Results - Last 24 Hours (Table) 10/31/22 10/31/22 11/01/22 Range/Units 16:58 20:19 05:46 RBC 2.56 L (3.80-5.40) m/uL Hgb 8.6 L (11.4-16.0) gm/dL Hct 26.2 L (34.0-46.0) % MCV 102.5 H (80.0-100.0) fL RDW 17.0 H (11.5-15.5) % Neutrophils # 7.9 H (1.3-7.7) k/uL Sodium (137-145) mmol/L Chloride (98-107) mmol/L Carbon Dioxide (22-30) mmol/L POC Glucose (mg/dL) 127 H 135 H (70-110) mg/dL Calcium (8.4-10.2) mg/dL 11/01/22 11/01/22 11/01/22 Range/Units 05:46 05:49 11:56 RBC (3.80-5.40) m/uL Hgb (11.4-16.0) gm/dL Hct (34.0-46.0) % MCV (80.0-100.0) fL RDW (11.5-15.5) % Neutrophils # (1.3-7.7) k/uL Sodium 131 L (137-145) mmol/L Chloride 97 L (98-107) mmol/L Carbon Dioxide 32 H (22-30) mmol/L POC Glucose (mg/dL) 111 H 129 H (70-110) mg/dL Calcium 8.2 L (8.4-10.2) mg/dL Microbiology - Last 24 Hours (Table) 10/31/22 07:22 Blood Culture - Preliminary Blood No Growth after 24 hours 10/28/22 14:30 Blood Culture - Preliminary Blood No Growth after 72 hours 10/28/22 14:15 Blood Culture Gram Stain - Final Blood Blood Culture - Final Escherichia coli Assessment and Plan (1) E coli bacteremia Current Visit: Yes Status: Acute Code(s): R78.81 - BACTEREMIA; B96.20 - UNSP ESCHERICHIA COLI THE CAUSE OF DISEASES CLASSD [facility] SNOMED Code(s): 804304394350 Plan: 1patient presented to hospital with sepsis in this patient who did have a fever tachycardia elevated white count elevated lactic acid now with evidence of gram- negative bacteremia source could be likely urinary however the patient also have left lower lobe infiltrate elevated procalcitonin and a possible component of gram-negative pneumonia. 2blood cultures has been repeated document clearance of bacteremia 3-Patient did recently tested positive for COVID-19 at the long-term for which treatment will be mostly supportive , patient is currently afebrile and not hypoxic on supplemental oxygen 4-patient blood culture had been finalized with E. coli with initial concern for urinary source however urine culture has been negative for a question of possible abdominal source may benefit from a CT of abdominal pelvis, patient to continue with Rocephin 2 g daily and will monitor clinical course closely Time with Patient: Less than 30
[2022-11-02] MEDS: HYDROcodone/APAP 5-325MG 1 EACH TAB PO PRN ×2 (04:53→18:24)
[2022-11-02] MEDS: BENZONATATE 100 MG CAP PO PRN ×3 (04:53→22:09)
[2022-11-02] MEDS: LEVOTHYROXINE 88 MCG TAB PO SCH (04:53)
[2022-11-02 06:32] LABS: Glucose,Whole Blood 102 mg/dL (70-110)
[2022-11-02] MEDS: METOPROLOL TARTRATE 50 MG TAB PO SCH ×2 (08:44→22:10)
[2022-11-02] MEDS: FAMOTIDINE 20 MG TAB PO SCH ×2 (08:44→22:10)
[2022-11-02] MEDS: DIGOXIN 125 MCG TAB PO SCH (08:45)
[2022-11-02] MEDS: GABAPENTIN 400 MG CAP PO SCH ×4 (08:45→22:10)
[2022-11-02] MEDS: APIXABAN 5 MG TAB PO SCH ×2 (08:45→22:10)
[2022-11-02] MEDS: FLUTICASONE 50MCG/SPRAY NASAL 16GM EA NOSTRIL SCH (08:45)
[2022-11-02] MEDS: allopurinoL 100 MG TAB PO SCH (08:45)
[2022-11-02 09:12] LABS: African American GFR (CKD) >90 (>60 ml/min/1.73 sqM); Anion Gap 2 mmol/L; Blood Urea Nitrogen 16 mg/dL (7-17); Calcium 8.5 mg/dL (8.4-10.2); Carbon Dioxide 30 mmol/L (22-30); Chloride 98 mmol/L (98-107); Glucose 121 mg/dL (74-99); Magnesium 1.7 mg/dL (1.6-2.3); Non-African American GFR(CKD) 84 (>60 ml/min/1.73 sqM); Potassium 4.7 mmol/L (3.5-5.1); Sodium 130 mmol/L (137-145)
[2022-11-02 09:18] LABS: Anisocytosis Slight; Basophils # (A) 0.1 k/uL (0-0.2); Basophils % (A) 1 %; Eosinophils # (A) 0.3 k/uL (0-0.7); Eosinophils % (A) 2 %; HCT 25.9 % (34.0-46.0); HGB 8.5 gm/dL (11.4-16.0); Hypochromasia Moderate; Lymphocytes # (A) 1.6 k/uL (1.0-4.8); Lymphocytes % (A) 11 %; MCH 34.4 pg (25.0-35.0); MCHC 32.6 g/dL (31.0-37.0); MCV 105.4 fL (80.0-100.0); Macrocytosis Marked; Mean Platelet Volume 8.5; Monocytes # (A) 0.8 k/uL (0-1.0); Monocytes % (A) 5 %; Neutrophils # (A) 11.5 k/uL (1.3-7.7); Neutrophils % (A) 78 %; Platelet Count 191 k/uL (150-450); RBC 2.46 m/uL (3.80-5.40); RDW 16.6 % (11.5-15.5); WBC 14.7 k/uL (3.8-10.6)
[2022-11-02 11:10] LABS: Glucose,Whole Blood 105 mg/dL (70-110)
[2022-11-02] MEDS ORDERED: SENNOSIDES 8.6 MG TAB PO PRN (12:01)
--- NOTE | 2022-11-02 12:08 | P.PN ---
Subjective Progress Note Date: 11/02/22 Hospital Course: Patient is a very pleasant 67-year-old woman with a medical history of stage IV uterine cancer with metastasis, hypertension, hyperlipidemia, diabetes, iron deficiency anemia, and permanent atrial fibrillation. She was initially hospitalized on 10/05/22 for altered mentation and discharged on 10/18/22. There was concerns for aseptic meningitis given her history of ke ytruda and lenvima use. Stroke was ruled out with 2 MRI brains. Lumbar puncture was done which showed elevated total protein of 70, normal glucose, elevated total nucleated cells of 45 with predominance of mononuclear white blood cells. ID was consulted, and did not believe findings were consistent with bacterial meningitis. HSV and viral panel CSF was negative. She was also seen by vascular surgery for critical stenosis of the right ICA, recommended outpatient follow- up. She was initiated on Keppra for seizure prophylaxis by Neurology. She completed multiple days of Zosyn IV for presumed pneumonia. HIV and treponema were both nonreactive. Lyme screening IgG and IgM was positive at 2.05. Augmentin discontinued at that time and patient started on doxycycline 100 mg twice daily to complete a three-week course and follow up outpatient with ID. She was subsequently discharged to SNF. Patient presents back to the ED from SNF for worsening altered mentation, increased work of breathing and worsening tachycardia. Of note, patient was diagnosed with COVID-19 at SNF. In the ED, T-max was 101.3 Fahrenheit. She was tachycardic with heart rate in the 120s. Vital signs were otherwise stable. CBC showed leukocytosis of 26 with hemoglobin of 8.2 and MCV of 109.7. INR was 1.2. CMP showed sodium of 132, chloride of 92, bicarb of 36, BUN of 21, glucose 144, AST of 50 and alkaline phosphatase of 148. Lactic acid was 3.1. Ammonia was negative. Troponin was less than 0.012. BNP was 3310 chest x-ray show cardiomegaly with small left-sided pleural effusion or fluid collection and associated left lower lobe acute infiltrate/atelectasis. Brain CT was negative for acute finding. COVID-19 was positive. Influenza flu negative. Urinalysis showed large blood, large leukocyte esterase with moderate bacteria, moderate mucus and many yeast. Patient is admitted for sepsis with infectious disease consultation. Patient was started on vancomycin and cefepime for treatment of sepsis. Infectious disease was consulted. Blood culture came back positive for E. coli. Antibiotics were switched to Rocephin. She was noted to have a drop in her hemoglobin from 8.2-5.3 which was thought to be dilutional as all of her cell lines dropped. 2 unit of PRBC was ordered and hemoglobin improved to 9. Patient developed vaginal bleeding overnight and her Eliquis was discontinued. MANAGER UTILIZATION MANAGEMENT was consulted and recommended continued monitoring for worsening of her vaginal bleeding. CTA chest was ordered because of her elevated d-dimer which showed occlusive pulmonary embolus lobar, segmental and more distal branches of the left lower lobe along with small left pleural effusion. Pulmonology was consulted and recommended reinitiating Eliquis. Subjective: Patient seen and examined at bedside. No acute events overnight. Denies any chest pain, shortness of breath, nausea, vomiting, diarrhea, constipation, or urinary complaints. She continues to feel really weak. She has minimal lower abdominal pain. Pertinent positives and negatives as discussed above, a complete review of systems was performed and all other systems are negative. Vitals Signs Reviewed. General: nontoxic, no distress, appears at stated age Derm: warm, dry Head: atraumatic, normocephalic, symmetric Eyes: EOMI, no lid lag, anicteric sclera Mouth: no lip lesion, mucus membranes moist Cardiovascular: S1S2 irregular, no murmur Lungs: Decreased breath sounds at the bases bilaterally, no accessory muscle use Abdominal: soft, nontender to palpation, no guarding, no appreciable organomegaly Ext: no gross muscle atrophy, no edema, no contractures Neuro: CN II-XI grossly intact, no focal neuro deficits Psych: Alert, oriented, appropriate affect Data Reviewed Today: Pertinent Labs: WBC 14.7, hemoglobin 8.5, platelet 191, sodium 130, creatinine 0.75, magnesium 1.7 Blood cultures from 10/28 growing pansensitive E. coli Assessment and Plan: Patient overall remains critically ill. Due to multiple comorbidities, reduced functional capacity, had an extensive discussion with patient with regards to goals of care. Patient will like to maintain DNR/DNI, and also agreeable to see palliative care services. Active: E. coli bacteremia Urinary tract infection Acute pulmonary emboli Asymptomatic COVID-19 pneumonia Macrocytic anemia Leukocytosis, reactive History of stage IV uterine cancer with metastatic disease Acute vaginal bleeding, status post 2 units of PRBCs Mild hyponatremia -Continue ceftriaxone 2 g IV daily -Continue on Eliquis 5 mg twice a day, hemoglobin currently stable, no active bleeding except for minor vaginal bleeding, repeat CBC tomorrow -Currently asymptomatic from COVID-19 pneumonia -Pulmonology, ID, oncology and MANAGER UTILIZATION MANAGEMENT following -Palliative care consult ordered -Patient appears euvolemic, hyponatremia likely in the setting of malignancy, repeat BMP tomorrow Resolved: Sepsis Acute hypoxic respiratory failure Acute metabolic encephalopathy Chronic: Hypertension Dyslipidemia Diabetes hypothyroidism Iron deficiency anemia Permanent atrial fibrillation DVT ppx: Eliquis Code status: DNR/DNI Anticipated discharge place: [facility] Anticipated discharge time: Pending clinical course Objective - Vital Signs Vital signs: Vital Signs Temp 99.1 F 11/02/22 07:10 Pulse 75 11/02/22 07:10 Resp 19 11/02/22 08:00 BP 110/73 11/02/22 07:10 Pulse Ox 96 11/02/22 08:33 FiO2 Intake & Output 11/01/22 11/02/22 11/02/22 18:59 06:59 18:59 Intake Total 286 Output Total 400 Balance 286 -400 Intake: Intake, IV Titration 50 Amount cefTRIAXone 2 gm In 50 Sodium Chloride 0.9% 50 ml @ 100 mls/hr IVPB Q24HR [facility] Rx#:[id number] Oral 236 Output: Urine 400 Other: Voiding Method Indwelling Catheter Indwelling Catheter Indwelling Catheter - Labs CBC & Chem 7: 11/02/22 08:38 11/02/22 08:38 Labs: Abnormal Lab Results - Last 24 Hours (Table) 11/01/22 11/02/22 11/02/22 Range/Units 16:55 08:38 08:38 WBC 14.7 H (3.8-10.6) k/uL RBC 2.46 L (3.80-5.40) m/uL Hgb 8.5 L (11.4-16.0) gm/dL Hct 25.9 L (34.0-46.0) % MCV 105.4 H (80.0-100.0) fL RDW 16.6 H (11.5-15.5) % Neutrophils # 11.5 H (1.3-7.7) k/uL Macrocytosis Marked A Sodium 130 L (137-145) mmol/L Glucose 121 H (74-99) mg/dL POC Glucose (mg/dL) 122 H (70-110) mg/dL Microbiology - Last 24 Hours (Table) 10/31/22 07:22 Blood Culture - Preliminary Blood No Growth after 48 hours 10/28/22 14:30 Blood Culture - Preliminary Blood No Growth after 96 hours
--- NOTE | 2022-11-02 13:32 | P.CONS ---
History of Present Illness - Reason for Consult Consult date: 11/02/22 Goals of care Requesting physician: Gabe Hernández - History of Present Illness The patient is a 67-year-old with a medical history of endometrial adenocarcinoma, hypertension, hyperlipidemia, diabetes, iron deficiency anemia, atrial fibrillation, and metastatic uterine cancer. She is a patient of Dr. Paz and was on lenvima/keytruda treatment. However, due to multiple hospitalizations and rehab, she has only received one cycle of keytruda on 09/17/22, and stopped lenvima about 5 days before last hospitalization, on 09/29/22. She presented to the emergency department on10/28/22 from her rehab for altered mental status. Patient's reports pt has been having confusion and worsening generalized weakness over the last 1 month. Before last hospitalization last month pt had UTI and was treated on PO regimen, but was ultimately admitted to the hospital for encephalopathy. Pt was then discharged to rehab and since has been diagnosed with COVID and reports persistent cough and generalized weakness. She also reports increasing vaginal bleeding over the last 1 month that worsened yesterday. She is on Eliquis for A-fib and right ICA stenosis. Eliquis was held upon this admission due to worsening of vaginal bleeding. Hemoglobin dropped to 5.3, and 2 units of PRBCs were given. CTA chest showed occlusive PE, lobar, segmental, and distal branches of LLL, with no noted right heart strain. Small left pleural effusion and airspace disease, and number of new pulmonary nodules in LINDSAY and left base measuring up to 2.7cm, suspicious for metastatic disease. REGISTERED NURSE SUPERVISOR was consulted and spoke with IM, and they agreed that benefits of Eliquis for PE outweigh risks of vaginal bleeding as this is unavoidable. She also has blood cultures gowing E coli. Urine culure is negative. Shewas started on rocephin. ID following. Review of Systems ROS unobtainable: due to mental status Past Medical History Past Medical History: Atrial Fibrillation, Diabetes Mellitus, Hyperlipidemia, Hypertension, Thyroid Disorder Additional Past Medical History / Comment(s): Neuropathy, skin cancer in nose, gout, stage IV uterine cancer History of Any Multi-Drug Resistant Organisms: None Reported Past Surgical History: Section, Orthopedic Surgery Additional Past Surgical History / Comment(s): ulnar nerve surgery Past Anesthesia/Blood Transfusion Reactions: No Reported Reaction Past Psychological History: No Psychological Hx Reported Past Alcohol Use History: None Reported Past Drug Use History: None Reported Medications and Allergies Home Medications Medication Instructions Recorded Confirmed Type Atorvastatin [Lipitor] 20 mg PO HS 10/05/22 10/28/22 History Cholecalciferol [Vitamin D3 (25 50 mcg PO DAILY 10/05/22 10/28/22 History Mcg = 1000 Iu)] Cyclobenzaprine [Flexeril] 10 mg PO TID PRN 10/05/22 10/28/22 History Digoxin [Digitek] 125 mcg PO SUTUWETHSA 10/05/22 10/28/22 History Digoxin [Digitek] 187.5 mcg PO MOFR 10/05/22 10/28/22 History Famotidine [Pepcid] 20 mg PO Q12H 10/05/22 10/28/22 History Ferrous Sulfate [Iron (65 MG 650 mg PO DAILY 10/05/22 10/28/22 History Elemental)] Levothyroxine Sodium [Synthroid] 175 mcg PO DAILY 10/05/22 10/28/22 History Losartan [Cozaar] 50 mg PO DAILY 10/05/22 10/28/22 History Metoprolol Tartrate [Lopressor] 100 mg PO BID 10/05/22 10/28/22 History [place]-3 Fatty Acids [[place]-3] 1,000 mg PO TID 10/05/22 10/28/22 History Thiamine [Vitamin B-1] 100 mg PO DAILY 10/05/22 10/28/22 History Vit C/E/Zn/Coppr/Lutein/Zeaxan 1 cap PO Q12H 10/05/22 10/28/22 History [Preservision Areds 2 Softgel] allopurinoL 200 mg PO DAILY 10/05/22 10/28/22 History metFORMIN HCL ER [Glucophage XR] 500 mg PO DAILY 10/05/22 10/28/22 History Acetaminophen Tab [Tylenol] 650 mg PO Q6HR PRN tab 10/18/22 10/28/22 Rx Aspirin 81 mg PO DAILY tab 10/18/22 10/28/22 Rx Butalb/APAP/Caff 50-325-40Mg 1 tab PO Q4H PRN #6 tablet 10/18/22 10/28/22 Rx [Fioricet 50-325-40] Doxycycline [Vibramycin] 100 mg PO BID #41 cap 10/18/22 10/28/22 Rx Fluticasone Nasal [place] [Flonase 2 spray EA NOSTRIL DAILY ml 10/18/22 10/28/22 Rx Nasal [place]] Gabapentin [Neurontin] 400 mg PO QID #12 cap 10/18/22 10/28/22 Rx Mag Hydrox/Al Hydrox/Simeth 30 ml PO TID ml 10/18/22 10/28/22 Rx [Maalox] Meclizine [Antivert] 25 mg PO TID PRN tab 10/18/22 10/28/22 Rx Sennosides [Senokot] 8.6 mg PO BID PRN tab 10/18/22 10/28/22 Rx guaiFENesin [Mucinex] 1,200 mg PO Q12HR tab 10/18/22 10/28/22 Rx Apixaban [Eliquis] 5 mg PO Q12H 10/28/22 10/28/22 History Ascorbic Acid [Vitamin C] 500 mg PO DAILY 10/28/22 10/28/22 History HYDROcodone/APAP 5-325MG [[place] 1 tab PO TID PRN 10/28/22 10/28/22 History 5-325] Ondansetron [Zofran] 4 mg PO Q4H PRN 10/28/22 10/28/22 History Zinc Gluconate [Zinc] 50 mg PO DAILY 10/28/22 10/28/22 History predniSONE See Taper PO DIRECTED 10/28/22 10/28/22 History Allergies Allergy/AdvReac Type Severity Reaction Status Date / Time bacitracin Allergy Rash/Hives Verified 10/28/22 15:04 [From Neosporin ([id number])] clarithromycin [From Biaxin] Allergy Rash/Hives Verified 10/28/22 15:04 codeine Allergy Rash/Hives Verified 10/28/22 15:04 neomycin Allergy Rash/Hives Verified 10/28/22 15:04 [From Neosporin ([id number])] polymyxin B Allergy Rash/Hives Verified 10/28/22 15:04 [From Neosporin ([id number])] Physical Exam Vitals: Vital Signs Temp Pulse Resp BP Pulse Ox 11/02/22 08:33 96 11/02/22 08:00 19 11/02/22 07:10 99.1 F 75 18 110/73 99 11/02/22 02:31 98.6 F 78 16 133/67 98 11/01/22 21:24 99.1 F 69 16 135/66 98 11/01/22 13:47 98.1 F 77 17 123/77 97 Intake and Output 11/01/22 11/02/22 11/02/22 22:59 06:59 14:59 Intake Total 168 Output Total 400 Balance 168 -400 Intake: Intake, IV Titration 50 Amount cefTRIAXone 2 gm In 50 Sodium Chloride 0.9% 50 ml @ 100 mls/hr IVPB Q24HR [facility] Rx#:[id number] Oral 118 Output: Urine 400 Other: Voiding Method Indwelling Catheter Indwelling Catheter General: Well developed, well nourished. No acute distress. Chronically ill appearing HEENT: Head is atraumatic, normocephalic. Sclera are clear. Mucus membranes moist. CV: Irregular rhythm, positive S1 and S2. No peripheral edema Lungs: Scattered rhonchi. Respirations even and nonlabored. On RA Abdomen/GI: Soft, nondistended, nontender. : No suprapubic tenderness. Bryant catheter draining clear yellow urine Musculoskeletal/ Extremities: No joint deformity or swelling. No contractures or gross atrophy. + generalized weakness Skin: Warm and dryCN II-XII grossly intact. No focal deficits. Results CBC & Chem 7: 11/02/22 08:38 11/02/22 08:38 Labs: Abnormal Lab Results - Last 24 Hours (Table) 11/01/22 11/02/22 11/02/22 Range/Units 16:55 08:38 08:38 WBC 14.7 H (3.8-10.6) k/uL RBC 2.46 L (3.80-5.40) m/uL Hgb 8.5 L (11.4-16.0) gm/dL Hct 25.9 L (34.0-46.0) % MCV 105.4 H (80.0-100.0) fL RDW 16.6 H (11.5-15.5) % Neutrophils # 11.5 H (1.3-7.7) k/uL Macrocytosis Marked A Sodium 130 L (137-145) mmol/L Glucose 121 H (74-99) mg/dL POC Glucose (mg/dL) 122 H (70-110) mg/dL Microbiology - Last 24 Hours (Table) 10/31/22 07:22 Blood Culture - Preliminary Blood No Growth after 48 hours 10/28/22 14:30 Blood Culture - Preliminary Blood No Growth after 96 hours Chest x-ray: report reviewed CT scan - chest: report reviewed CT Scan - head: report reviewed Venous US: report reviewed Assessment and Plan Assessment: The patient is resting in bed. She is coughing quite a bit. She is breathing comfortably and is on RA. She is slow to respond and is confused. Attempted to call patient's , Kartik. Left voicemail with call back number. Plan: - Awaiting call back from patient's - Continue to reach out to family to determine goals of care Thank you for this consultation Impression and plan of care have been directed as dictated by the signing physician. Zamzam Portillo nurse practitioner acting as scribe for signing physician. Zamzam Portillo [facility] Palliative Care/Urology Spectralink [phone] Email: [email or web address]
--- NOTE | 2022-11-02 14:53 | P.PN ---
Subjective Progress Note Date: 11/02/22 This is a pleasant 67-year-old female patient with a known history of stage IV uterine cancer maintained on lenvima and Keytruda in the outpatient setting, atrial fibrillation anticoagulated with Eliquis, chronic vaginal bleeding secondary to cancer, chronic indwelling Bryant catheter, diabetes mellitus, h ypothyroidism, hypertension, hyperlipidemia, carotid stenosis, Lyme disease being treated with doxycycline. She was just discharged from here on 10/18/2022 with Lyme disease, sinusitis, vertigo. She was brought into the emergency room 10/28/2022 with generalized weakness, altered mental status, shortness of breath and [facility]cardia [facility]. She had been diagnosed with COVID-[address] angiogram here revealed occlusive PE lobar, substance segmental and more distal branch the left lower lobe. No CT findings of right heart strain. There is a small left pleural effusion and airspace disease at the left base. A number of new pulmonary nodules left upper lobe and left lung base measuring up to 2.7 cm suspicious for metastatic disease. Dopplers of the lower extremities negative for DVT. She is seen today on the regular medical floor. She is laying flat in bed. Awake and alert in no acute distress. Maintaining O2 saturations in the 90s on 2 L/m per nasal cannula. Currently afebrile. No tachycardia. No tachypnea. Blood pressure stable. She did devel op recurrent vaginal bleeding with a hemoglobin drop to 5.3 and is status post 2 units of packed red blood cells. Current hemoglobin 9.0. She had been seen by [facility] and they felt staying on Eliquis was more beneficial done stopping it. Pro- calcitonin level I.65. Urinalysis is positive for bacteria. She is given ceftriaxone. The patient is seen today 10/31/2022 in follow-up on the regular medical floor. She is more awake and alert. Denies any worsening shortness of breath, cough or congestion. Maintaining O2 saturations in the 90s on room air. No chest pain or discomfort. She is status post 2 units of packed red blood cells this admission. Current hemoglobin 8.3. Platelets 132. Denies any significant vaginal bleeding. Blood culture was positive for E. coli. White count 10.8. Creatinine 0.8. Glucose 123. She remains on ceftriaxone. Remains on Eliquis. The patient is seen today 11/01/2022 in follow-up on the regular medical floor. She is resting comfortably in bed. Awake and alert in no acute distress. Maintaining good O2 saturations in the 90s on room air. Normal saline at 10 MLS per hour. She is continued on anticoagulation in the form of Eliquis. Remains on antibiotics in the form of ceftriaxone. Tessalon Perles for her cough. Blood cultures were positive for E. coli. Urine culture revealed no growth. White count 10.4. Hemoglobin 8.6. Platelets 160. Sodium 131. Potassium 4.1. Bicarb 32. BUN 16. Creatinine 0.73. Glucose 111. The patient is seen today 11/02/2022 in follow-up on the regular medical floor. She is currently resting flat in bed. Awake and alert in no acute distress. No worsening shortness of breath, cough or congestion. She is maintaining O2 saturations in the 90s on 2 L nasal cannula. Normal saline at KVO. Continued on ceftriaxone for E. coli urinary tract infection. Anticoagulated with Eliquis. White count 14.7. Hemoglobin 8.5. Sodium 1:30. Potassium 4.7. Bicarb 30. BUN 16. Creatinine 0.75. Glucose 121. Objective - Vital Signs Vital signs: Vital Signs Temp 99.1 F 11/02/22 07:10 Pulse 75 11/02/22 07:10 Resp 19 11/02/22 08:00 BP 110/73 11/02/22 07:10 Pulse Ox 96 11/02/22 08:33 FiO2 Intake & Output 11/01/22 11/02/22 11/02/22 18:59 06:59 18:59 Intake Total 286 Output Total 400 Balance 286 -400 Intake: Intake, IV Titration 50 Amount cefTRIAXone 2 gm In 50 Sodium Chloride 0.9% 50 ml @ 100 mls/hr IVPB Q24HR [facility] Rx#:[id number] Oral 236 Output: Urine 400 Other: Voiding Method Indwelling Catheter Indwelling Catheter Indwelling Catheter - Exam GENERAL EXAM: Alert, 67-year-old female, on room air, comfortable in no apparent distress. HEAD: Normocephalic. EYES: Normal reaction of pupils, equal size. NOSE: Clear with pink turbinates. THROAT: No erythema or exudates. NECK: No masses, no JVD. CHEST: No chest wall deformity. LUNGS: Equal air entry with scattered rhonchi, crackles in left base. CVS: S1 and S2 normal with no audible murmur, irregular rhythm. ABDOMEN: No hepatosplenomegaly, normal bowel sounds, no guarding or rigidity. SPINE: No scoliosis or deformity SKIN: No rashes CENTRAL NERVOUS SYSTEM: No focal deficits, tone is normal in all 4 extremities. EXTREMITIES: There is no peripheral edema. No clubbing, no cyanosis. Peripheral pulses are intact. - Labs CBC & Chem 7: 11/02/22 08:38 11/02/22 08:38 Labs: Abnormal Lab Results - Last 24 Hours (Table) 11/01/22 11/02/22 11/02/22 Range/Units 16:55 08:38 08:38 WBC 14.7 H (3.8-10.6) k/uL RBC 2.46 L (3.80-5.40) m/uL Hgb 8.5 L (11.4-16.0) gm/dL Hct 25.9 L (34.0-46.0) % MCV 105.4 H (80.0-100.0) fL RDW 16.6 H (11.5-15.5) % Neutrophils # 11.5 H (1.3-7.7) k/uL Macrocytosis Marked A Sodium 130 L (137-145) mmol/L Glucose 121 H (74-99) mg/dL POC Glucose (mg/dL) 122 H (70-110) mg/dL Microbiology - Last 24 Hours (Table) 10/31/22 07:22 Blood Culture - Preliminary Blood No Growth after 48 hours 10/28/22 14:30 Blood Culture - Preliminary Blood No Growth after 96 hours Assessment and Plan Assessment: Acute hypoxemic respiratory failure secondary to pulmonary emboli mostly in the segmental and distal branches of left lower lobe. Small left pleural effusion and airspace disease left base. Improved on room air, anticoagulated with Eliquis COVID-19 infection without evidence of COVID-19 pneumonia Bacteria anemia secondary to E. coli suspect UTI. Remains on ceftriaxone Stage IV uterine cancer with metastasis including pulmonary nodules and left upper lobe and left base measuring up to 2.7 cm. Maintaining on Lenvima and Keytruda in the outpatient setting Acute on chronic vaginal bleeding secondary to above Acute anemia with hemoglobin dropped to 5.3, status post 2 units of packed red blood cells, current hemoglobin 8.6 Chronic atrial fibrillation anticoagulated with Eliquis Urinary tract infection, on Rocephin, cultures pending Chronic indwelling Bryant catheter Right carotid stenosis. Recent history of Lyme's disease treated with doxycycline History of hypertension Hyperlipidemia Diabetes mellitus Poor overall functional performance based on the above-mentioned comorbidities intermediate resident Plan: The patient was seen and evaluated Labs and medications reviewed Currently stable and on room air Remains on ceftriaxone Plan is for discharge back to [facility] once cleared medically I have personally seen and examined the patient, performed the documentation and the assessment and plan as written. Number of minutes spent on the visit: 10.
[2022-11-02 16:05] LABS: Glucose,Whole Blood 92 mg/dL (70-110)
--- NOTE | 2022-11-02 19:32 | P.PN ---
Subjective Progress Note Date: 11/02/22 Principal diagnosis: E. coli bacteremia Patient is a 67-year-old female with a past medical history significant for stage IV uterine cancer hypertension hyperlipidemia atrial fibrillation and diabetes mellitus , who was brought in to the hospital for evaluation of mental status changes his work of breathing and tachycardia and was recently diagnosed with Covid 19 at the nursing home facility. On today's evaluation that is 11/02/2022 the patient remains to be afebrile, the patient is breathing comfortably on room air , the patient denies having any chest pain or shortness of breath , the patient did have occasional cough that has some abdominal discomfort but no diarrhea, patient seemed to be slightly upset and she has been told about end-of-life care Objective - Vital Signs Vital signs: Vital Signs Temp 99.1 F 11/02/22 07:10 Pulse 75 11/02/22 07:10 Resp 19 11/02/22 08:00 BP 110/73 11/02/22 07:10 Pulse Ox 96 11/02/22 08:33 FiO2 Intake & Output 11/01/22 11/02/22 11/02/22 18:59 06:59 18:59 Intake Total 286 Output Total 400 Balance 286 -400 Intake: Intake, IV Titration 50 Amount cefTRIAXone 2 gm In 50 Sodium Chloride 0.9% 50 ml @ 100 mls/hr IVPB Q24HR [facility] Rx#:[id number] Oral 236 Output: Urine 400 Other: Voiding Method Indwelling Catheter Indwelling Catheter Indwelling Catheter - Exam GENERAL DESCRIPTION: An elderly female lying in bed in no distress RESPIRATORY SYSTEM: Unlabored breathing , decreased breath sounds at bases HEART: S1 S2 regular rate and rhythm , ABDOMEN: Soft , no tenderness EXTREMITIES: No edema feet - Labs CBC & Chem 7: 11/02/22 08:38 11/02/22 08:38 Labs: Abnormal Lab Results - Last 24 Hours (Table) 11/01/22 11/02/22 11/02/22 Range/Units 16:55 08:38 08:38 WBC 14.7 H (3.8-10.6) k/uL RBC 2.46 L (3.80-5.40) m/uL Hgb 8.5 L (11.4-16.0) gm/dL Hct 25.9 L (34.0-46.0) % MCV 105.4 H (80.0-100.0) fL RDW 16.6 H (11.5-15.5) % Neutrophils # 11.5 H (1.3-7.7) k/uL Macrocytosis Marked A Sodium 130 L (137-145) mmol/L Glucose 121 H (74-99) mg/dL POC Glucose (mg/dL) 122 H (70-110) mg/dL Microbiology - Last 24 Hours (Table) 10/31/22 07:22 Blood Culture - Preliminary Blood No Growth after 48 hours 10/28/22 14:30 Blood Culture - Preliminary Blood No Growth after 96 hours Assessment and Plan (1) E coli bacteremia Current Visit: Yes Status: Acute Code(s): R78.81 - BACTEREMIA; B96.20 - UNSP ESCHERICHIA COLI THE CAUSE OF DISEASES [facility]SD [facility] SNOMED Code(s): 397525995041 Plan: 1patient presented to hospital with sepsis in this patient who did have a fever tachycardia elevated white count elevated lactic acid now with evidence of gram- negative bacteremia source could be likely urinary however the patient also have left lower lobe infiltrate elevated procalcitonin and a possible component of gram-negative pneumonia. 2blood cultures has been repeated document clearance of bacteremia 3-Patient did recently tested positive for COVID-19 at the group home for which treatment will be mostly supportive , patient is currently afebrile and not hypoxic on supplemental oxygen 4-patient blood culture had been finalized with E. coli with initial concern for urinary source however urine culture has been negative for a question of p ossible abdominal source may benefit from a CT of abdominal pelvis, however for possible plan for hospice will hold on any further workup at this point, patient to continue with Rocephin 2 g daily and will monitor clinical course closely Time with Patient: Less than 30
[2022-11-02 20:16] LABS: Glucose,Whole Blood 100 mg/dL (70-110)
[2022-11-02] MEDS: ACETAMINOPHEN TAB 325 MG TAB PO PRN (22:09)
[2022-11-02] MEDS: ATORVASTATIN 20 MG TAB PO SCH (22:10)
[2022-11-03] MEDS: HYDROcodone/APAP 5-325MG 1 EACH TAB PO PRN ×3 (02:12→18:26)
[2022-11-03 06:04] LABS: Glucose,Whole Blood 78 mg/dL (70-110)
[2022-11-03] MEDS: LEVOTHYROXINE 88 MCG TAB PO SCH (06:36)
[2022-11-03] MEDS: allopurinoL 100 MG TAB PO SCH (10:24)
[2022-11-03] MEDS: METOPROLOL TARTRATE 50 MG TAB PO SCH ×2 (10:24→19:48)
[2022-11-03] MEDS: ASCORBIC ACID 500 MG TAB PO SCH (10:24)
[2022-11-03] MEDS: THIAMINE 100 MG TAB PO SCH (10:24)
[2022-11-03] MEDS: FERROUS SULFATE 325 MG TAB PO SCH (10:26)
[2022-11-03] MEDS: FLUTICASONE 50MCG/SPRAY NASAL 16GM EA NOSTRIL SCH (10:26)
[2022-11-03] MEDS: GABAPENTIN 400 MG CAP PO SCH ×4 (10:26→22:00)
[2022-11-03] MEDS: FAMOTIDINE 20 MG TAB PO SCH ×2 (10:26→19:48)
[2022-11-03] MEDS: APIXABAN 5 MG TAB PO SCH ×2 (10:26→19:48)
[2022-11-03] MEDS: DIGOXIN 125 MCG TAB PO SCH (10:29)
--- NOTE | 2022-11-03 11:37 | P.PN ---
Subjective Progress Note Date: 11/03/22 Hospital Course: Patient is a very pleasant 67-year-old woman with a medical history of stage IV uterine cancer with metastasis, hypertension, hyperlipidemia, diabetes, iron deficiency anemia, and permanent atrial fibrillation. She was initially hospitalized on 10/05/22 for altered mentation and discharged on 10/18/22. There was concerns for aseptic meningitis given her history of ke ytruda and lenvima use. Stroke was ruled out with 2 MRI brains. Lumbar puncture was done which showed elevated total protein of 70, normal glucose, elevated total nucleated cells of 45 with predominance of mononuclear white blood cells. ID was consulted, and did not believe findings were consistent with bacterial meningitis. HSV and viral panel CSF was negative. She was also seen by vascular surgery for critical stenosis of the right ICA, recommended outpatient follow- up. She was initiated on Keppra for seizure prophylaxis by Neurology. She completed multiple days of Zosyn IV for presumed pneumonia. HIV and treponema were both nonreactive. Lyme screening IgG and IgM was positive at 2.05. Augmentin discontinued at that time and patient started on doxycycline 100 mg twice daily to complete a three-week course and follow up outpatient with ID. She was subsequently discharged to SNF. Patient presents back to the ED from SNF for worsening altered mentation, increased work of breathing and worsening tachycardia. Of note, patient was diagnosed with COVID-19 at SNF. In the ED, T-max was 101.3 Fahrenheit. She was tachycardic with heart rate in the 120s. Vital signs were otherwise stable. CBC showed leukocytosis of 26 with hemoglobin of 8.2 and MCV of 109.7. INR was 1.2. CMP showed sodium of 132, chloride of 92, bicarb of 36, BUN of 21, glucose 144, AST of 50 and alkaline phosphatase of 148. Lactic acid was 3.1. Ammonia was negative. Troponin was less than 0.012. BNP was 3310 chest x-ray show cardiomegaly with small left-sided pleural effusion or fluid collection and associated left lower lobe acute infiltrate/atelectasis. Brain CT was negative for acute finding. COVID-19 was positive. Influenza flu negative. Urinalysis showed large blood, large leukocyte esterase with moderate bacteria, moderate mucus and many yeast. Patient is admitted for sepsis with infectious disease consultation. Patient was started on vancomycin and cefepime for treatment of sepsis. Infectious disease was consulted. Blood culture came back positive for E. coli. Antibiotics were switched to Rocephin. She was noted to have a drop in her hemoglobin from 8.2-5.3 which was thought to be dilutional as all of her cell lines dropped. 2 unit of PRBC was ordered and hemoglobin improved to 9. Patient developed vaginal bleeding overnight and her Eliquis was discontinued. MARKETING AND PROMOTIONS MANAGER was consulted and recommended continued monitoring for worsening of her vaginal bleeding. CTA chest was ordered because of her elevated d-dimer which showed occlusive pulmonary embolus lobar, segmental and more distal branches of the left lower lobe along with small left pleural effusion. Pulmonology was consulted and recommended reinitiating Eliquis. She continues to have intermittent fevers, CT abdomen and pelvis pending. Subjective: Patient seen and examined at bedside. No acute events overnight. Denies any chest pain, shortness of breath, nausea, vomiting, diarrhea, constipation, or urinary complaints. She continues to feel really weak. She has minimal lower abdominal pain. Pertinent positives and negatives as discussed above, a complete review of systems was performed and all other systems are negative. Vitals Signs Reviewed. General: nontoxic, no distress, appears at stated age Derm: warm, dry Head: atraumatic, normocephalic, symmetric Eyes: EOMI, no lid lag, anicteric sclera Mouth: no lip lesion, mucus membranes moist Cardiovascular: S1S2 irregular, no murmur Lungs: Decreased breath sounds at the bases bilaterally, no accessory muscle use Abdominal: soft, nontender to palpation, no guarding, no appreciable organomegaly Ext: no gross muscle atrophy, no edema, no contractures Neuro: CN II-XI grossly intact, no focal neuro deficits Psych: Alert, oriented, appropriate affect Data Reviewed Today: Pertinent Labs: Labs unavailable from today Assessment and Plan: Patient overall remains critically ill. Due to multiple comorbidities, reduced functional capacity, patient should be considered for palliative care/hospice service. Palliative care consulted, pending further discussion with with regards to goals of care. Active: E. coli bacteremia Urinary tract infection Acute pulmonary emboli Asymptomatic COVID-19 pneumonia Macrocytic anemia Leukocytosis History of stage IV uterine cancer with metastatic disease Acute vaginal bleeding, status post 2 units of PRBCs Mild hyponatremia -Had a personal discussion with ID with regards to management, due to worsening white count and intermittent fevers, CT abdomen and pelvis was recommended -CT abdomen and pelvis ordered -Continue ceftriaxone 2 g IV daily -Continue on Eliquis 5 mg twice a day, hemoglobin currently stable, no active bleeding except for minor vaginal bleeding, repeat CBC pending -Currently asymptomatic from COVID-19 pneumonia -Pulmonology, oncology and MARKETING AND [employer]OMOTIONS MANAGER following -Palliative care note reviewed: Pending further discussion with -Patient appears euvolemic, hyponatremia likely in the setting of malignancy, repeat BMP pending -Repeat BMP and CBC tomorrow Resolved: Sepsis Acute hypoxic respiratory failure Acute metabolic encephalopathy Chronic: Hypertension Dyslipidemia Diabetes hypothyroidism Iron deficiency anemia Permanent atrial fibrillation DVT ppx: Eliquis Code status: DNR/DNI [facility] time: Pending clinical course Objective - Vital Signs Vital signs: Vital Signs Temp 98.9 F 11/03/22 07:18 Pulse 68 11/03/22 07:18 Resp 18 11/03/22 07:18 BP 123/86 11/03/22 07:18 Pulse Ox 95 11/03/22 07:18 FiO2 Intake & Output 11/02/22 11/03/22 11/03/22 18:59 06:59 18:59 Intake Total 10 Output Total 400 300 Balance -400 -290 Intake: IV 10 Invasive Line 1 10 Output: Urine 400 300 Other: Voiding Method Indwelling Catheter Indwelling Catheter Indwelling Catheter - Labs CBC & Chem 7: 11/02/22 08:38 11/02/22 08:38 Labs: Microbiology - Last 24 Hours (Table) 10/31/22 07:22 Blood Culture - Preliminary Blood No Growth after 72 hours 10/28/22 14:30 Blood Culture - Preliminary Blood No Growth after 120 hours
[2022-11-03 11:52] LABS: Glucose,Whole Blood 132 mg/dL (70-110)
[2022-11-03 12:28] LABS: African American GFR (CKD) 86 (>60 ml/min/1.73 sqM); Anion Gap 6 mmol/L; Blood Urea Nitrogen 15 mg/dL (7-17); Calcium 8.3 mg/dL (8.4-10.2); Carbon Dioxide 30 mmol/L (22-30); Chloride 95 mmol/L (98-107); Glucose 123 mg/dL (74-99); Non-African American GFR(CKD) 75 (>60 ml/min/1.73 sqM); Potassium 4.3 mmol/L (3.5-5.1); Sodium 131 mmol/L (137-145)
[2022-11-03 12:37] LABS: Anisocytosis Slight; Basophils % (A) 0 %; Eosinophils # (A) 0.2 k/uL (0-0.7); Eosinophils % (A) 1 %; HCT 25.2 % (34.0-46.0); HGB 7.9 gm/dL (11.4-16.0); Hypochromasia Slight; Lymphocytes # (A) 1.4 k/uL (1.0-4.8); Lymphocytes % (A) 11 %; MCH 32.4 pg (25.0-35.0); MCHC 31.4 g/dL (31.0-37.0); MCV 103.4 fL (80.0-100.0); Macrocytosis Moderate; Mean Platelet Volume 8.7; Monocytes # (A) 0.5 k/uL (0-1.0); Monocytes % (A) 4 %; Neutrophils # (A) 10.3 k/uL (1.3-7.7); Neutrophils % (A) 80 %; Platelet Count 233 k/uL (150-450); RBC 2.44 m/uL (3.80-5.40); RDW 17.3 % (11.5-15.5); WBC 12.9 k/uL (3.8-10.6)
[2022-11-03 13:53] VITALS: BMI 34.4
[2022-11-03] MEDS: BENZONATATE 100 MG CAP PO PRN (14:00)
--- NOTE | 2022-11-03 14:01 | CT ---
EXAMINATION TYPE: CT abdomen pelvis w con DATE OF EXAM: 11/03/2022 HISTORY: Fever, sepsis. History of uterine cancer. CT DLP: 1569.9mGycm Automated Exposure Control for Dose Reduction was Utilized. CONTRAST: CT scan of the abdomen and pelvis is performed without oral and with IV Contrast, patient injected wi th 100 ml mL of Isovue 300. COMPARISON: CT abdomen and pelvis October 08, 2022 FINDINGS: LUNG BASES: Persistent small left pleural fluid collection with associated atelectasis and/or consoli dation. LIVER/GB: Nodular contour superiorly redemonstrated raising concern for underlying cirrhosis similar prior. PANCREAS: No significant abnormality is seen. SPLEEN: No significant abnormality is seen. ADRENALS: No significant abnormality is seen. KIDNEYS: Bilateral renal calculi are again seen. There are 2 small adjacent calculi midpole of the le ft kidney coronal image 80. There is single 7 mm calculus in the midpole right kidney coronal image 8 0 which is progressed in the interval from the lateral calyx into the central pelvis. No visualized e xcretion is seen on delayed images. There is persistent moderate left-sided hydronephrosis and mild t o minimal right-sided hydronephrosis BOWEL: No suspicious small or large bowel dilatation. UTERUS/ADNEXA: Persistent heterogeneous enlarged uterus with central air and fluid having multiple se ptations and irregular thickened wall and having central air. Infected necrotic tumor or neoplasm is suspected. LYMPH NODES: Persistent low dense left pelvic 6.4 x 4.1 cm lesion suspected abnormal lymphadenopathy axial image 73 is similar to prior study. There is a larger lesion seen superior to this measuring 7. 7 x 6.2 cm axial image 51 redemonstrated similar to prior. There is enlargement of the anterior left lower quadrant/upper pelvic low dense lesion with air-fluid level measuring 7.8 x 7.3 cm axial image 61. OSSEOUS STRUCTURES: Persistent [id number] disc space narrowing with vacuum disc phenomenon at L4-L5 level. Posterior spurring effaces the anterior thecal sac at L4-L5 level. OTHER: Mild subcutaneous edema over the bilateral pelvis laterally is redemonstrated. IMPRESSION: 1. Stable small left pleural effusion or fluid collection with associated left lung consolidation and /or atelectasis. 2. Necrotic mass or primary uterine neoplasm with abscess transformation is felt present having simil ar appearance to most recent CT. There are enlarged lower abdominal and pelvic lymph nodes redemonstr ated, 2 are stable in size and have low density suggesting necrosis or fluid development. The more an terior lower left abdominal mass possible lymph node versus primary neoplastic extension shows interv al increase in size with new internal air suggesting necrosis and/or abscess formation at this level. Persistent moderate left-sided hydronephrosis and mild to minimal right-sided hydronephrosis similar to prior. Findings presumed related to obstruction from lower abdominal/pelvic masses and/or neoplas m.
--- NOTE | 2022-11-03 14:14 | P.PN ---
Subjective Progress Note Date: 11/03/22 This is a pleasant 67-year-old female patient with a known history of stage IV uterine cancer maintained on lenvima and Keytruda in the outpatient setting, atrial fibrillation anticoagulated with Eliquis, chronic vaginal bleeding secondary to cancer, chronic indwelling Braynt catheter, diabetes mellitus, h ypothyroidism, hypertension, hyperlipidemia, carotid stenosis, Lyme disease being treated with doxycycline. She was just discharged from here on 10/18/2022 with Lyme disease, sinusitis, vertigo. She was brought into the emergency room 10/28/2022 with generalized weakness, altered mental status, shortness of breath and [facility]cardia [facility] She had been diagnosed with COVID-[address] angiogram here revealed occlusive PE lobar, substance segmental and more distal branch the left lower lobe. No CT findings of right heart strain. There is a small left pleural effusion and airspace disease at the left base. A number of new pulmonary nodules left upper lobe and left lung base measuring up to 2.7 cm suspicious for metastatic disease. Dopplers of the lower extremities negative for DVT. She is seen today on the regular medical floor. She is laying flat in bed. Awake and alert in no acute distress. Maintaining O2 saturations in the 90s on 2 L/m per nasal cannula. Currently afebrile. No tachycardia. No tachypnea. Blood pressure stable. She did devel op recurrent vaginal bleeding with a hemoglobin drop to 5.3 and is status post 2 units of packed red blood cells. Current hemoglobin 9.0. She had been seen by [facility] and they felt staying on Eliquis was more beneficial done stopping it. Pro- calcitonin level I.65. Urinalysis is positive for bacteria. She is given ceftriaxone. The patient is seen today 10/31/2022 in follow-up on the regular medical floor. She is more awake and alert. Denies any worsening shortness of breath, cough or congestion. Maintaining O2 saturations in the 90s on room air. No chest pain or discomfort. She is status post 2 units of packed red blood cells this admission. Current hemoglobin 8.3. Platelets 132. Denies any significant vaginal bleeding. Blood culture was positive for E. coli. White count 10.8. Creatinine 0.8. Glucose 123. She remains on ceftriaxone. Remains on Eliquis. The patient is seen today 11/01/2022 in follow-up on the regular medical floor. She is resting comfortably in bed. Awake and alert in no acute distress. Maintaining good O2 saturations in the 90s on room air. Normal saline at 10 MLS per hour. She is continued on anticoagulation in the form of Eliquis. Remains on antibiotics in the form of ceftriaxone. Tessalon Perles for her cough. Blood cultures were positive for E. coli. Urine culture revealed no growth. White count 10.4. Hemoglobin 8.6. Platelets 160. Sodium 131. Potassium 4.1. Bicarb 32. BUN 16. Creatinine 0.73. Glucose 111. The patient is seen today 11/02/2022 in follow-up on the regular medical floor. She is currently resting flat in bed. Awake and alert in no acute distress. No worsening shortness of breath, cough or congestion. She is maintaining O2 saturations in the 90s on 2 L nasal cannula. Normal saline at KVO. Continued on ceftriaxone for E. coli urinary tract infection. Anticoagulated with Eliquis. White count 14.7. Hemoglobin 8.5. Sodium 1:30. Potassium 4.7. Bicarb 30. BUN 16. Creatinine 0.75. Glucose 121. The patient is seen today 11/03/2022 in follow-up on the regular medical floor. She is awake and alert in no acute distress. Resting comfortably in bed. Maintaining O2 saturations in the mid 90s on room air. Afebrile. Hemodynamically stable. Computed tomography scan of the abdomen and pelvis revealed stable small left pleural effusion with associated consolidation versus atelectasis. Necrotic mass her primary uterine neoplasm with abscess transformation is felt present having similar parents to most recent CT. There are enlarged lower abdominal and pelvic lymph nodes. Low density suggesting necrosis or fluid development. The more anterior lower left abdominal mass possible lymph node versus primary neoplastic extension shows interval increase in size with new internal air suggesting necrosis and/or abscess formation. Moderate left-sided hydronephrosis. Presumed related to obstruction from lower abdominal/pelvic mass. Blood culture positive for E. coli. Follow-up blood cultures revealing no growth. She is status post 2 units of packed red blood cells this admission. Current hemoglobin 7.9. White count 12.9. Hemoglobin 7.9. Platelets 233. Sodium 131. Potassium 4.3. Bicarb 30. BUN 15. Creatinine 0.83. Glucose 123. Objective - Vital Signs Vital signs: Vital Signs Temp 98.9 F 11/03/22 07:18 Pulse 68 11/03/22 07:18 Resp 18 11/03/22 07:18 BP 123/86 11/03/22 07:18 Pulse Ox 95 11/03/22 07:18 FiO2 Intake & Output 11/02/22 11/03/22 11/03/22 18:59 06:59 18:59 Intake Total 10 Output Total 400 300 Balance -400 -290 Weight 105.687 kg Intake: IV 10 Invasive Line 1 10 Output: Urine 400 300 Other: Voiding Method Indwelling Catheter Indwelling Catheter Indwelling Catheter - Exam GENERAL EXAM: Alert, 67-year-old female, resting comfortably in bed, on room air, comfortable in no apparent distress. HEAD: Normocephalic. EYES: Normal reaction of pupils, equal size. NOSE: Clear with pink turbinates. THROAT: No erythema or exudates. NECK: No masses, no JVD. CHEST: No chest wall deformity. LUNGS: Equal air entry with scattered rhonchi, crackles in left base. CVS: S1 and S2 normal with no audible murmur, irregular rhythm. ABDOMEN: No hepatosplenomegaly, normal bowel sounds, no guarding or rigidity. SPINE: No scoliosis or deformity SKIN: No rashes CENTRAL NERVOUS SYSTEM: No focal deficits, tone is normal in all 4 extremities. EXTREMITIES: There is no peripheral edema. No clubbing, no cyanosis. Peripheral pulses are intact. - Labs CBC & Chem 7: 11/03/22 11:35 11/03/22 11:35 Labs: Abnormal Lab Results - Last 24 Hours (Table) 11/03/22 11/03/22 11/03/22 Range/Units 11:35 11:35 11:50 WBC 12.9 H (3.8-10.6) k/uL RBC 2.44 L (3.80-5.40) m/uL Hgb 7.9 L (11.4-16.0) gm/dL Hct 25.2 L (34.0-46.0) % MCV 103.4 H (80.0-100.0) fL RDW 17.3 H (11.5-15.5) % Neutrophils # 10.3 H (1.3-7.7) k/uL Sodium 131 L (137-145) mmol/L Chloride 95 L (98-107) mmol/L Glucose 123 H (74-99) mg/dL POC Glucose (mg/dL) 132 H (70-110) mg/dL Calcium 8.3 L (8.4-10.2) mg/dL Microbiology - Last 24 Hours (Table) 10/31/22 07:22 Blood Culture - Preliminary Blood No Growth after 72 hours 10/28/22 14:30 Blood Culture - Preliminary Blood No Growth after 120 hours Assessment and Plan Assessment: Acute hypoxemic respiratory failure secondary to pulmonary emboli mostly in the segmental and distal branches of left lower lobe. Small left pleural effusion and airspace disease left base. Improved on room air, anticoagulated with Eliquis COVID-19 infection without evidence of COVID-19 pneumonia Bacteria anemia secondary to E. coli suspect UTI. Remains on ceftriaxone Stage IV uterine cancer with metastasis including pulmonary nodules and left upper lobe and left base measuring up to 2.7 cm. Maintaining on Lenvima and Keytruda in the outpatient setting. Computed tomography scan of the abdomen and pelvis revealed stable small left pleural effusion with associated consolidation versus atelectasis. Necrotic mass her primary uterine neoplasm with abscess transformation is felt present having similar parents to most recent CT. There are enlarged lower abdominal and pelvic lymph nodes. Low density suggesting necrosis or fluid development. The more anterior lower left abdominal mass possible lymph node versus primary neoplastic extension shows interval increase in size with new internal air suggesting necrosis and/or abscess formation. Moderate left-sided hydronephrosis. Presumed related to obstruction from lower abdominal/pelvic mass. Acute on chronic vaginal bleeding secondary to above Acute anemia with hemoglobin dropped to 5.3, status post 2 units of packed red blood cells, current hemoglobin 7.9 Chronic atrial fibrillation anticoagulated with Eliquis Urinary tract infection, on Rocephin, cultures pending Chronic indwelling Bryant catheter Right carotid stenosis. Recent history of Lyme's disease treated with doxycycline History of hypertension Hyperlipidemia Diabetes mellitus Poor overall functional performance based on the above-mentioned comorbidities alf resident Plan: The patient was seen and evaluated CT scan of the abdomen, labs and medications reviewed Currently stable and on room air Remains on ceftriaxone Remains a DO NOT RESUSCITATE/DO NOT INTUBATE CODE STATUS Palliative care has been consulted Plan is for discharge back to [facility] once cleared medically I have personally seen and examined the patient, performed the documentation and the assessment and plan as written. Number of minutes spent on the visit: 10.
--- NOTE | 2022-11-03 14:43 | P.PN ---
Subjective Progress Note Date: 11/03/22 The patient is a 67-year-old with a medical history of endometrial adenocarcinoma, hypertension, hyperlipidemia, diabetes, iron deficiency anemia, atrial fibrillation, and metastatic uterine cancer. She is a patient of Dr. Paz and was on lenvima/keytruda treatment. However, due to multiple hospitalizations and rehab, she has only received one cycle of keytruda on 09/17/22, and stopped lenvima about 5 days before last hospitalization, on 09/29/22. She presented to the emergency department on10/28/22 from her rehab for altered mental status. Patient's reports pt has been having confusion and worsening generalized weakness over the last 1 month. Before last hospitalization last month pt had UTI and was treated on PO regimen, but was ultimately admitted to the hospital for encephalopathy. Pt was then discharged to rehab and since has been diagnosed with COVID and reports persistent cough and generalized weakness. She also reports increasing vaginal bleeding over the last 1 month that worsened yesterday. She is on Eliquis for A-fib and right ICA stenosis. Eliquis was held upon this admission due to worsening of vaginal bleeding. Hemoglobin dropped to 5.3, and 2 units of PRBCs were given. CTA chest showed occlusive PE, lobar, segmental, and distal branches of LLL, with no noted right heart strain. Small left pleural effusion and airspace disease, and number of new pulmonary nodules in LINDSAY and left base measuring up to 2.7cm, suspicious for metastatic disease. [facility] was consulted and spoke with IM, and they agreed that benefits of Eliquis for PE outweigh risks of vaginal bleeding as this is unavoidable. She also has blood cultures gowing E coli. Urine culure is negative. Shewas started on rocephin. ID following. Objective - Vital Signs Vital signs: Vital Signs Temp 98.9 F 11/03/22 07:18 Pulse 68 11/03/22 07:18 Resp 18 11/03/22 07:18 BP 123/86 11/03/22 07:18 Pulse Ox 95 11/03/22 07:18 FiO2 Intake & Output 11/02/22 11/03/22 11/03/22 18:59 06:59 18:59 Intake Total 10 Output Total 400 300 Balance -400 -290 Weight 105.687 kg Intake: IV 10 Invasive Line 1 10 Output: Urine 400 300 Other: Voiding Method Indwelling Catheter Indwelling Catheter Indwelling Catheter - Exam General: Well developed, well nourished. No acute distress. Chronically ill appearing HEENT: Head is atraumatic, normocephalic. Sclera are clear. Mucus membranes moist. CV: Irregular rhythm, positive S1 and S2. No peripheral edema Lungs: Scattered rhonchi. Respirations even and nonlabored. On RA Abdomen/GI: Soft, nondistended, nontender. : No suprapubic tenderness. Bryant catheter draining clear yellow urine Musculoskeletal/ Extremities: No joint deformity or swelling. No contractures or gross atrophy. + generalized weakness Skin: Warm and dry Neuro: A&O x 3. CN II-XII grossly intact. No focal deficits. - Labs CBC & Chem 7: 11/03/22 11:35 11/03/22 11:35 Labs: Abnormal Lab Results - Last 24 Hours (Table) 11/03/22 11/03/22 11/03/22 Range/Units 11:35 11:35 11:50 WBC 12.9 H (3.8-10.6) k/uL RBC 2.44 L (3.80-5.40) m/uL Hgb 7.9 L (11.4-16.0) gm/dL Hct 25.2 L (34.0-46.0) % MCV 103.4 H (80.0-100.0) fL RDW 17.3 H (11.5-15.5) % Neutrophils # 10.3 H (1.3-7.7) k/uL Sodium 131 L (137-145) mmol/L Chloride 95 L (98-107) mmol/L Glucose 123 H (74-99) mg/dL POC Glucose (mg/dL) 132 H (70-110) mg/dL Calcium 8.3 L (8.4-10.2) mg/dL Microbiology - Last 24 Hours (Table) 10/31/22 07:22 Blood Culture - Preliminary Blood No Growth after 72 hours 10/28/22 14:30 Blood Culture - Preliminary Blood No Growth after 120 hours Assessment and Plan Assessment: Social * Occupation - Retired * Marital status - to , Kartik, for 46 years * Children/grandchildren - 2 adult children - 1 son and 1 daughter. 3 grandchildren * Residence - House * Who do you reside with - [place] and Dog - Nate * ETOH - No * Tobacco - No * Illicit drugs - No Spiritual/Cultural * A spiritual person - Yes * Sabianist - Sikhism * Belong to a particular sikhism - [facility] * Beliefs a source of comfort and strength - Yes * Bahai or cultural practices restrictions - No * EOL considerations/rituals - No Functional Assessment * Able to walk independently - No, patient was at [facility] for rehab and could not stand without max assist * Able to use the bathroom independently - No * Continent - No * Require assistance bathing- Yes * Able to feed self - Yes * Who prepares meals - Rehab * How many meals a day eaten - 1-2 * Able to clean house/do laundry - No * Transportation - * Able to shop - No * Who manages medications - Rehab * Who manages finances - * Does pain impact ability to perform ADL's - yes PPS score - 30% Safety * In home/residence - Patient feels now well cared for in rehab, but is safe * In relationships - safe Psychological/Emotional * Dementia present - No * Insight and judgment - Intact * Depression - No * Suicidal thoughts - No * Good support system - Yes * Patients goals - undecided: optimize functionality or comfort * Frequent hospitalizations - Yes * Desire to keep coming back to the hospital for treatment - No Symptoms * Pain - 6/10 lower abdomen and chest from coughing. Increased frequency of [place] Q4H prn, Continue Tylenol, Neurotin, and Flexeril * Fatigue - + generalized weakness and fatigue, tires very easily. Continue Ferrous sulfate * SOB - No * Insomnia - No * N/V - No * Anxiety - No * Depression - No * Confusion - Comes and goes * Agitation - No * Hallucinations - No * Appetite/weight loss - loss of appetite, continue heart healthy diet, added Glucerna TIDWM * Dysphagia -No * Constipation - Occasional, continue senokot prn * Incontinence - No, Has Bryant catheter * Itch - No * Cough - Yes, continue Tessalon perles and Robitussin Plan: Summary/Goals - The patient is more awake and alert today. She is oriented x 3. Her is at the bedside. Information regarding palliative care philosoph ies and services provided. Her history and current medical issues reviewed. The patient states that she does not want to go back to rehab. She wants to go home with her . She understands that she is too weak and he would not be able to get her up. She stated she would just use a bedpan. It was also explained that she would not get as much PT at home as she would at rehab. She understa nds that her functional performance is too poor to receive any more treatment for her cancer. Realistically she does not think she will be able to get strong enough. She said that the chemo was really hard on her. Hospice philosophies and services explained. The patient and her understand that hospice means no more coming back and forth to the hospital and no physical therapy. They have agreed to an informational visit. They need time to think and talk things through. Hospice consulted. Will follow up with patient tomorrow. Recommendations - Home with hospice vs rehab Advanced Directives - None on file Code Status - DNR Thank you for this consultation Zamzam Portillo [facility] Palliative Care [facility] [place] [id number] Email: [email or web address]
[2022-11-03 17:21] LABS: Glucose,Whole Blood 159 mg/dL (70-110)
[2022-11-03] MEDS: CYCLOBENZAPRINE 10 MG TAB PO PRN (19:48)
[2022-11-03] MEDS: ATORVASTATIN 20 MG TAB PO SCH (19:48)
[2022-11-03 20:40] LABS: Glucose,Whole Blood 165 mg/dL (70-110)
--- NOTE | 2022-11-03 21:10 | P.PN ---
Subjective Progress Note Date: 11/03/22 Principal diagnosis: E. coli bacteremia Patient is a 67-year-old female with a past medical history significant for stage IV uterine cancer hypertension hyperlipidemia atrial fibrillation and diabetes mellitus , who was brought in to the hospital for evaluation of mental status changes his work of breathing and tachycardia and was recently diagnosed with Covid 19 at the half-way facility. On today's evaluation that is 11/03/2022 the patient did have a low-grade fever 100.6 last evening the patient is afebrile this morning, the patient is breathing comfortably on room air , the patient denies having any chest pain or shortness of breath , the patient did have occasional cough the patient did have has some abdominal discomfort but no diarrhea, Objective - Vital Signs Vital signs: Vital Signs Temp 98.9 F 11/03/22 07:18 Pulse 68 11/03/22 07:18 Resp 18 11/03/22 07:18 BP 123/86 11/03/22 07:18 Pulse Ox 95 11/03/22 07:18 FiO2 Intake & Output 11/02/22 11/03/22 11/03/22 18:59 06:59 18:59 Intake Total 10 Output Total 400 300 Balance -400 -290 Intake: IV 10 Invasive Line 1 10 Output: Urine 400 300 Other: Voiding Method Indwelling Catheter Indwelling Catheter Indwelling Catheter - Exam GENERAL DESCRIPTION: An elderly female lying in bed in no distress RESPIRATORY SYSTEM: Unlabored breathing , decreased breath sounds at bases HEART: S1 S2 regular rate and rhythm , ABDOMEN: Soft , no tenderness EXTREMITIES: No edema feet - Labs CBC & Chem 7: 11/03/22 11:35 11/03/22 11:35 Labs: Microbiology - Last 24 Hours (Table) 10/31/22 07:22 Blood Culture - Preliminary Blood No Growth after 72 hours 10/28/22 14:30 Blood Culture - Preliminary Blood No Growth after 120 hours Assessment and Plan (1) E coli bacteremia Current Visit: Yes Status: Acute Code(s): R78.81 - BACTEREMIA; B96.20 - UNSP ESCHERICHIA COLI THE CAUSE OF DISEASES [facility]SD [facility] SNOMED Code(s): 647918325794 Plan: 1patient presented to hospital with sepsis in this patient who did have a fever tachycardia elevated white count elevated lactic acid now with evidence of gram- negative bacteremia source could be likely urinary however the patient also have left lower lobe infiltrate elevated procalcitonin and a possible component of gram-negative pneumonia. 2blood cultures has been repeated document clearance of bacteremia 3-Patient did recently tested positive for COVID-19 at the [facility] for which treatment will be mostly supportive , patient is currently afebrile and not hypoxic on supplemental oxygen 4-patient blood culture had been finalized with E. coli with initial concern for urinary source however urine culture has been negative for a question of possible abdominal source, keeping in mind the patient did have a low-grade fever and white count is still elevated will benefit from a CT of abdominal pelvis to better define underlying intra-abdominal pathology this was discussed with the admitting team and continue with Rocephin Time with Patient: Less than 30
[2022-11-03] MEDS: PIPERACILLIN-TAZOBACTAM 3.375 GM in SODIUM CHLORIDE 0.9% 100 ML IVPB SCH (22:00)
[2022-11-04] MEDS: HYDROcodone/APAP 5-325MG 1 EACH TAB PO PRN ×5 (00:01→20:10)
[2022-11-04] MEDS: BENZONATATE 100 MG CAP PO PRN ×2 (04:12→13:52)
[2022-11-04] MEDS: PIPERACILLIN-TAZOBACTAM 3.375 GM in SODIUM CHLORIDE 0.9% 100 ML IVPB SCH ×2 (05:23→14:32)
[2022-11-04] MEDS: guaiFENesin SYRUP 100MG/5ML 200 MG/10 ML CUP PO PRN ×2 (05:24→21:38)
[2022-11-04] MEDS: LEVOTHYROXINE 88 MCG TAB PO SCH (06:01)
[2022-11-04 06:27] LABS: Glucose,Whole Blood 120 mg/dL (70-110)
[2022-11-04 06:40] LABS: Anisocytosis Slight; Basophils # (A) 0.1 k/uL (0-0.2); Basophils % (A) 0 %; Eosinophils # (A) 0.3 k/uL (0-0.7); Eosinophils % (A) 2 %; HCT 25.2 % (34.0-46.0); HGB 7.9 gm/dL (11.4-16.0); Hypochromasia Slight; Lymphocytes % (A) 14 %; MCH 32.7 pg (25.0-35.0); MCHC 31.4 g/dL (31.0-37.0); Macrocytosis Moderate; Mean Platelet Volume 8.1; Monocytes # (A) 0.7 k/uL (0-1.0); Monocytes % (A) 5 %; Neutrophils # (A) 11.6 k/uL (1.3-7.7); Neutrophils % (A) 77 %; Platelet Count 280 k/uL (150-450); RBC 2.42 m/uL (3.80-5.40); RDW 16.7 % (11.5-15.5); WBC 15.1 k/uL (3.8-10.6)
[2022-11-04 06:52] LABS: African American GFR (CKD) 79 (>60 ml/min/1.73 sqM); Anion Gap 5 mmol/L; Blood Urea Nitrogen 15 mg/dL (7-17); Calcium 8.5 mg/dL (8.4-10.2); Carbon Dioxide 31 mmol/L (22-30); Chloride 94 mmol/L (98-107); Glucose 105 mg/dL (74-99); Non-African American GFR(CKD) 68 (>60 ml/min/1.73 sqM); Potassium 4.4 mmol/L (3.5-5.1); Sodium 130 mmol/L (137-145)
[2022-11-04] MEDS: DIGOXIN 125 MCG TAB PO SCH (08:42)
[2022-11-04] MEDS: METOPROLOL TARTRATE 50 MG TAB PO SCH ×2 (08:42→20:10)
[2022-11-04] MEDS: allopurinoL 100 MG TAB PO SCH (08:42)
[2022-11-04] MEDS: FERROUS SULFATE 325 MG TAB PO SCH (08:42)
[2022-11-04] MEDS: ASCORBIC ACID 500 MG TAB PO SCH (08:42)
[2022-11-04] MEDS: APIXABAN 5 MG TAB PO SCH (08:43)
[2022-11-04] MEDS: GABAPENTIN 400 MG CAP PO SCH ×4 (08:43→20:10)
[2022-11-04] MEDS: THIAMINE 100 MG TAB PO SCH (08:43)
[2022-11-04] MEDS: FAMOTIDINE 20 MG TAB PO SCH ×2 (08:43→20:10)
[2022-11-04] MEDS: FLUTICASONE 50MCG/SPRAY NASAL 16GM EA NOSTRIL SCH (08:44)
[2022-11-04 11:48] LABS: Glucose,Whole Blood 168 mg/dL (70-110)
--- NOTE | 2022-11-04 12:23 | P.PN ---
Subjective Progress Note Date: 11/04/22 Hospital Course: Patient is a very pleasant 67-year-old woman with a medical history of stage IV uterine cancer with metastasis, hypertension, hyperlipidemia, diabetes, iron deficiency anemia, and permanent atrial fibrillation. She was initially hospitalized on 10/05/22 for altered mentation and discharged on 10/18/22. There was concerns for aseptic meningitis given her history of keytruda and lenvima use. Stroke was ruled out with 2 MRI brains. Lumbar puncture was done which showed elevated total protein of 70, normal glucose, elevated total nucleated cells of 45 with predominance of mononuclear white blood cells. ID was consulted, and did not believe findings were consistent with bacterial meningitis. HSV and viral panel CSF was negative. She was also seen by vascular surgery for critical stenosis of the right ICA, recommended outpatient follow-up. She was initiated on Keppra for seizure prophylaxis by Neurology. She completed multiple days of Zosyn IV for presumed pneumonia. HIV and treponema were both nonreactive. Lyme screening IgG and IgM was positive at 2.05. Augmentin discontinued at that time and patient started on doxycycline 100 mg twice daily to complete a three-week course and follow up outpatient with ID. She was subsequently discharged to SNF. Patient presents back to the ED from SNF for worsening altered mentation, increased work of breathing and worsening tachycardia. Of note, patient was diagnosed with COVID-19 at SNF. In the ED, T-max was 101.3 Fahrenheit. She was tachycardic with heart rate in the 120s. Vital signs were otherwise stable. CBC showed leukocytosis of 26 with hemoglobin of 8.2 and MCV of 109.7. INR was 1.2. CMP showed sodium of 132, chloride of 92, bicarb of 36, BUN of 21, glucose 144, AST of 50 and alkaline phosphatase of 148. Lactic acid was 3.1. Ammonia was negative. Troponin was less than 0.012. BNP was 3310 chest x-ray show cardiomegaly with small left-sided pleural effusion or fluid collection and associated left lower lobe acute infiltrate/atelectasis. Brain CT was negative for acute finding. COVID-19 was positive. Influenza flu negative. Urinalysis showed large blood, large leukocyte esterase with moderate bacteria, moderate mucus and many yeast. Patient is admitted for sepsis with infectious disease consultation. Patient was started on vancomycin and cefepime for treatment of sepsis. Infe ctious disease was consulted. Blood culture came back positive for E. coli. Antibiotics were switched to Rocephin. She was noted to have a drop in her hemoglobin from 8.2-5.3 which was thought to be dilutional as all of her cell lines dropped. 2 unit of PRBC was ordered and hemoglobin improved to 9. Patient developed vaginal bleeding overnight and her Eliquis was discontinued. [employer] SAL[employer]GER was consulted and recommended continued monitoring for worsening of her vaginal bleeding. CTA chest was ordered because of her elevated d-dimer which showed occlusive pulmonary embolus lobar, segmental and more distal branches of the left lower lobe along with small left pleural effusion. Pulmonology was consulted and recommended reinitiating Eliquis. She continues to have intermittent fevers, CT abdomen and pelvis showed necrotic mass or primary uterine neuroplasm with abscess transformation Subjective: Patient seen and examined at bedside. No acute events overnight. Denies any chest pain, shortness of breath, nausea, vomiting, diarrhea, constipation, or urinary complaints. She continues to feel really weak. She has minimal lower abdominal pain. Pertinent positives and negatives as discussed above, a complete review of systems was performed and all other systems are negative. Vitals Signs Reviewed. General: nontoxic, no distress, appears at stated age Derm: warm, dry Head: atraumatic, normocephalic, symmetric Eyes: EOMI, no lid lag, anicteric sclera Mouth: no lip lesion, mucus membranes moist Cardiovascular: S1S2 irregular, no murmur Lungs: Decreased breath sounds at the bases bilaterally, no accessory muscle use Abdominal: soft, nontender to palpation, no guarding, no appreciable organomegaly Ext: no gross muscle atrophy, no edema, no contractures Neuro: CN II-XI grossly intact, no focal neuro deficits Psych: Alert, oriented, appropriate affect Data Reviewed Today: Pertinent Labs: WBC 15.1, hemoglobin 7.9, platelet 280, sodium 130, bicarbonate 31, creatinine 0.89, blood glucose levels between 105-168 CT abdomen and pelvis report reviewed, shows uterine neoplasm with abscess transformation, similar appearance to recent CT, there is interval increase in size with internal air noted within the mass. Assessment and Plan: Patient overall remains critically ill. Due to multiple comorbidities, reduced functional capacity, patient should be considered for palliative care/hospice service. Palliative care and hospice is consulted. Patient in consi dering hospice care. Active: E. coli bacteremia Urinary tract infection Acute pulmonary emboli Asymptomatic COVID-19 pneumonia Macrocytic anemia Leukocytosis History of stage IV uterine cancer with metastatic disease Acute vaginal bleeding, status post 2 units of PRBCs Mild hyponatremia -Antibiotics switched to to Zosyn 3.375 g IV every 8 hours -Uterine mass is becoming necrotic and has abscess transformation based on CT abdomen and pelvis -ID following -Continue on Eliquis 5 mg twice a day, hemoglobin currently stable, minor vaginal bleeding, repeat CBC tomorrow, needs close monitoring -Currently asymptomatic from COVID-19 pneumonia -Pulmonology, oncology and [employer] SAL[employer] MANAGER following -Palliative care consulted hospice, family considering hospice care -Patient appears euvolemic, hyponatremia likely in the setting of malignancy, repeat BMP tomorrow Resolved: Sepsis Acute hypoxic respiratory failure Acute metabolic encephalopathy Chronic: Hypertension Dyslipidemia Diabetes hypothyroidism Iron deficiency anemia Permanent atrial fibrillation DVT ppx: Eliquis Code status: DNR/DNI [facility] time: Pending clinical course Objective - Vital Signs Vital signs: Vital Signs Temp 98.7 F 11/04/22 08:00 Pulse 64 11/04/22 08:00 Resp 18 11/04/22 08:00 BP 116/64 11/04/22 08:00 Pulse Ox 93 L 11/04/22 08:00 FiO2 Intake & Output 11/03/22 11/04/22 11/04/22 18:59 06:59 18:59 Intake Total 918 560 Output Total 700 Balance 918 -140 Weight 105.687 kg Intake: Intake, IV Titration 200 Amount Piperacillin-Tazobactam 3 200 .375 gm In Sodium Chloride 0.9% 100 ml @ 25 mls/hr IVPB Q8H [facility] Rx#: [id number] Oral 918 360 Output: Urine 700 Uretheral (Bryant) 700 Other: Voiding Method Indwelling Catheter Indwelling Catheter Indwelling Catheter # Bowel Movements 1 - Labs CBC & Chem 7: 11/04/22 06:12 11/04/22 06:12 Labs: Abnormal Lab Results - Last 24 Hours (Table) 11/03/22 11/03/22 11/03/22 Range/Units 11:35 11:35 11:50 WBC 12.9 H (3.8-10.6) k/uL RBC 2.44 L (3.80-5.40) m/uL Hgb 7.9 L (11.4-16.0) gm/dL Hct 25.2 L (34.0-46.0) % MCV 103.4 H (80.0-100.0) fL RDW 17.3 H (11.5-15.5) % Neutrophils # 10.3 H (1.3-7.7) k/uL Sodium 131 L (137-145) mmol/L Chloride 95 L (98-107) mmol/L Carbon Dioxide (22-30) mmol/L Glucose 123 H (74-99) mg/dL POC Glucose (mg/dL) 132 H (70-110) mg/dL Calcium 8.3 L (8.4-10.2) mg/dL 11/03/22 11/03/22 11/04/22 Range/Units 17:20 20:38 06:12 WBC 15.1 H (3.8-10.6) k/uL RBC 2.42 L (3.80-5.40) m/uL Hgb 7.9 L (11.4-16.0) gm/dL Hct 25.2 L (34.0-46.0) % MCV 104.0 H (80.0-100.0) fL RDW 16.7 H (11.5-15.5) % Neutrophils # 11.6 H (1.3-7.7) k/uL Sodium (137-145) mmol/L Chloride (98-107) mmol/L Carbon Dioxide (22-30) mmol/L Glucose (74-99) mg/dL POC Glucose (mg/dL) 159 H 165 H (70-110) mg/dL Calcium (8.4-10.2) mg/dL 11/04/22 11/04/22 Range/Units 06:12 06:25 WBC (3.8-10.6) k/uL RBC (3.80-5.40) m/uL Hgb (11.4-16.0) gm/dL Hct (34.0-46.0) % MCV (80.0-100.0) fL RDW (11.5-15.5) % Neutrophils # (1.3-7.7) k/uL Sodium 130 L (137-145) mmol/L Chloride 94 L (98-107) mmol/L Carbon Dioxide 31 H (22-30) mmol/L Glucose 105 H (74-99) mg/dL POC Glucose (mg/dL) 120 H (70-110) mg/dL Calcium (8.4-10.2) mg/dL Microbiology - Last 24 Hours (Table) 10/31/22 07:22 Blood Culture - Preliminary Blood No Growth after 96 hours 10/28/22 14:30 Blood Culture - Final Blood No Growth after 144 hours
--- NOTE | 2022-11-04 14:12 | P.PN ---
Subjective Progress Note Date: 11/04/22 This is a pleasant 67-year-old female patient with a known history of stage IV uterine cancer maintained on lenvima and Keytruda in the outpatient setting, atrial fibrillation anticoagulated with Eliquis, chronic vaginal bleeding secondary to cancer, chronic indwelling Bryant catheter, diabetes mellitus, h ypothyroidism, hypertension, hyperlipidemia, carotid stenosis, Lyme disease being treated with doxycycline. She was just discharged from here on 10/18/2022 with Lyme disease, sinusitis, vertigo. She was brought into the emergency room 10/28/2022 with generalized weakness, altered mental status, shortness of breath and [facility] She had been diagnosed with COVID-[address] angiogram here revealed occlusive PE lobar, substance segmental and more distal branch the left lower lobe. No CT findings of right heart strain. There is a small left pleural effusion and airspace disease at the left base. A number of new pulmonary nodules left upper lobe and left lung base measuring up to 2.7 cm suspicious for metastatic disease. Dopplers of the lower extremities negative for DVT. She is seen today on the regular medical floor. She is laying flat in bed. Awake and alert in no acute distress. Maintaining O2 saturations in the 90s on 2 L/m per nasal cannula. Currently afebrile. No tachycardia. No tachypnea. Blood pressure stable. She did devel op recurrent vaginal bleeding with a hemoglobin drop to 5.3 and is status post 2 units of packed red blood cells. Current hemoglobin 9.0. She had been seen by [employer] and they felt staying on Eliquis was more beneficial done stopping it. Pro- calcitonin level I.65. Urinalysis is positive for bacteria. She is given ceftriaxone. The patient is seen today 10/31/2022 in follow-up on the regular medical floor. She is more awake and alert. Denies any worsening shortness of breath, cough or congestion. Maintaining O2 saturations in the 90s on room air. No chest pain or discomfort. She is status post 2 units of packed red blood cells this admission. Current hemoglobin 8.3. Platelets 132. Denies any significant vaginal bleeding. Blood culture was positive for E. coli. White count 10.8. Creatinine 0.8. Glucose 123. She remains on ceftriaxone. Remains on Eliquis. The patient is seen today 11/01/2022 in follow-up on the regular medical floor. She is resting comfortably in bed. Awake and alert in no acute distress. Maintaining good O2 saturations in the 90s on room air. Normal saline at 10 MLS per hour. She is continued on anticoagulation in the form of Eliquis. Remains on antibiotics in the form of ceftriaxone. Tessalon Perles for her cough. Blood cultures were positive for E. coli. Urine culture revealed no growth. White count 10.4. Hemoglobin 8.6. Platelets 160. Sodium 131. Potassium 4.1. Bicarb 32. BUN 16. Creatinine 0.73. Glucose 111. The patient is seen today 11/02/2022 in follow-up on the regular medical floor. She is currently resting flat in bed. Awake and alert in no acute distress. No worsening shortness of breath, cough or congestion. She is maintaining O2 saturations in the 90s on 2 L nasal cannula. Normal saline at KVO. Continued on ceftriaxone for E. coli urinary tract infection. Anticoagulated with Eliquis. White count 14.7. Hemoglobin 8.5. Sodium 1:30. Potassium 4.7. Bicarb 30. BUN 16. Creatinine 0.75. Glucose 121. The patient is seen today 11/03/2022 in follow-up on the regular medical floor. She is awake and alert in no acute distress. Resting comfortably in bed. Maintaining O2 saturations in the mid 90s on room air. Afebrile. Hemodynamically stable. Computed tomography scan of the abdomen and pelvis revealed stable small left pleural effusion with associated consolidation versus atelectasis. Necrotic mass her primary uterine neoplasm with abscess transformation is felt present having similar parents to most recent CT. There are enlarged lower abdominal and pelvic lymph nodes. Low density suggesting necrosis or fluid development. The more anterior lower left abdominal mass possible lymph node versus primary neoplastic extension shows interval increase in size with new internal air suggesting necrosis and/or abscess formation. Moderate left-sided hydronephrosis. Presumed related to obstruction from lower abdominal/pelvic mass. Blood culture positive for E. coli. Follow-up blood cultures revealing no growth. She is status post 2 units of packed red blood cells this admission. Current hemoglobin 7.9. White count 12.9. Hemoglobin 7.9. Platelets 233. Sodium 131. Potassium 4.3. Bicarb 30. BUN 15. Creatinine 0.83. Glucose 123. The patient is seen today 11/04/2022 in follow-up on the regular medical floor. Resting comfortably in bed. No worsening shortness of breath, cough or congestion. She is maintaining good O2 saturations in the 90s on room air. She's afebrile. Hemodynamically stable. She is status post 2 units of packed red blood cells this admission. Current hemoglobin 7.9. Platelets 280. White count 15.1. Sodium 130. Potassium 4.4. Bicarb 31. BUN 15. Creatinine 0.89. Glucose 105. Initial blood cultures positive for E. coli. Follow-up blood cultures revealing no growth. She is currently on Zosyn. Anticoagulated with Eliquis. Objective - Vital Signs Vital signs: Vital Signs Temp 99.2 F 11/04/22 13:57 Pulse 58 L 11/04/22 13:57 Resp 18 11/04/22 13:57 BP 120/65 11/04/22 13:57 Pulse Ox 97 11/04/22 13:57 FiO2 Intake & Output 11/03/22 11/04/22 11/04/22 18:59 06:59 18:59 Intake Total 918 560 Output Total 700 Balance 918 -140 Weight 105.687 kg Intake: Intake, IV Titration 200 Amount Piperacillin-Tazobactam 3 200 .375 gm In Sodium Chloride 0.9% 100 ml @ 25 mls/hr IVPB Q8H [id number] Rx#: [id number] Oral 918 360 Output: Urine 700 Uretheral (Bryant) 700 Other: Voiding Method Indwelling Catheter Indwelling Catheter Indwelling Catheter # Bowel Movements 1 1 - Exam GENERAL EXAM: Alert, 67-year-old female, on room air, comfortable in no apparent distress. HEAD: Normocephalic. EYES: Normal reaction of pupils, equal size. NOSE: Clear with pink turbinates. THROAT: No erythema or exudates. NECK: No masses, no JVD. CHEST: No chest wall deformity. LUNGS: Equal air entry with scattered rhonchi, crackles in left base. CVS: S1 and S2 normal with no audible murmur, irregular rhythm. ABDOMEN: No hepatosplenomegaly, normal bowel sounds, no guarding or rigidity. SPINE: No scoliosis or deformity SKIN: No rashes CENTRAL NERVOUS SYSTEM: No focal deficits, tone is normal in all 4 extremities. EXTREMITIES: There is no peripheral edema. No clubbing, no cyanosis. Peripheral pulses are intact. - Labs CBC & Chem 7: 11/04/22 06:12 11/04/22 06:12 Labs: Abnormal Lab Results - Last 24 Hours (Table) 11/03/22 11/03/22 11/04/22 Range/Units 17:20 20:38 06:12 WBC 15.1 H (3.8-10.6) k/uL RBC 2.42 L (3.80-5.40) m/uL Hgb 7.9 L (11.4-16.0) gm/dL Hct 25.2 L (34.0-46.0) % MCV 104.0 H (80.0-100.0) fL RDW 16.7 H (11.5-15.5) % Neutrophils # 11.6 H (1.3-7.7) k/uL Sodium (137-145) mmol/L Chloride (98-107) mmol/L Carbon Dioxide (22-30) mmol/L Glucose (74-99) mg/dL POC Glucose (mg/dL) 159 H 165 H (70-110) mg/dL 11/04/22 11/04/22 11/04/22 Range/Units 06:12 06:25 11:41 WBC (3.8-10.6) k/uL RBC (3.80-5.40) m/uL Hgb (11.4-16.0) gm/dL Hct (34.0-46.0) % MCV (80.0-100.0) fL RDW (11.5-15.5) % Neutrophils # (1.3-7.7) k/uL Sodium 130 L (137-145) mmol/L Chloride 94 L (98-107) mmol/L Carbon Dioxide 31 H (22-30) mmol/L Glucose 105 H (74-99) mg/dL POC Glucose (mg/dL) 120 H 168 H (70-110) mg/dL Microbiology - Last 24 Hours (Table) 10/31/22 07:22 Blood Culture - Preliminary Blood No Growth after 96 hours 10/28/22 14:30 Blood Culture - Final Blood No Growth after 144 hours Assessment and Plan Assessment: Acute hypoxemic respiratory failure secondary to pulmonary emboli mostly in the segmental and distal branches of left lower lobe. Small left pleural effusion and airspace disease left base. Improved on room air, anticoagulated with Eliquis COVID-19 infection without evidence of COVID-19 pneumonia Bacteria anemia secondary to E. coli suspect UTI. Remains on ceftriaxone Stage IV uterine cancer with metastasis including pulmonary nodules and left upper lobe and left base measuring up to 2.7 cm. Maintaining on Lenvima and Keytruda in the outpatient setting. Computed tomography scan of the abdomen and pelvis revealed stable small left pleural effusion with associated consolidation versus atelectasis. Necrotic mass her primary uterine neoplasm with abscess transformation is felt present having similar parents to most recent CT. There are enlarged lower abdominal and pelvic lymph nodes. Low density suggesting necrosis or fluid development. The more anterior lower left abdominal mass possible lymph node versus primary neoplastic extension shows interval increase in size with new internal air suggesting necrosis and/or abscess formation. Moderate left-sided hydronephrosis. Presumed related to obstruction from lower abdominal/pelvic mass. Acute on chronic vaginal bleeding secondary to above Acute anemia with hemoglobin dropped to 5.3, status post 2 units of packed red blood cells, current hemoglobin 7.9 Chronic atrial fibrillation anticoagulated with Eliquis Urinary tract infection, on Rocephin, cultures pending Chronic indwelling Bryant catheter Right carotid stenosis. Recent history of Lyme's disease treated with doxycycline History of hypertension Hyperlipidemia Diabetes mellitus Poor overall functional performance based on the above-mentioned comorbidities [facility] Plan: The patient was seen and evaluated Currently stable and on room air Palliative care has been consulted Plan is for discharge back to [facility] once cleared medically We will see the patient as needed I have personally seen and examined the patient, performed the documentation and the assessment and plan as written. Number of minutes spent on the visit: 10.
--- NOTE | 2022-11-04 14:12 | P.PN ---
Subjective Progress Note Date: 11/04/22 The patient is a 67-year-old with a medical history of endometrial adenocarcinoma, hypertension, hyperlipidemia, diabetes, iron deficiency anemia, atrial fibrillation, and metastatic uterine cancer. She is a patient of Dr. Paz and was on lenvima/keytruda treatment. However, due to multiple hospitalizations and rehab, she has only received one cycle of keytruda on 09/17/22, and stopped lenvima about 5 days before last hospitalization, on 09/29/22. She presented to the emergency department on10/28/22 from her rehab for altered mental status. Patient's reports pt has been having confusion and worsening generalized weakness over the last 1 month. Before last hospitalization last month pt had UTI and was treated on PO regimen, but was ultimately admitted to the hospital for encephalopathy. Pt was then discharged to rehab and since has been diagnosed with COVID and reports persistent cough and generalized weakness. She also reports increasing vaginal bleeding over the last 1 month that worsened yesterday. She is on Eliquis for A-fib and right ICA stenosis. Eliquis was held upon this admission due to worsening of vaginal bleeding. Hemoglobin dropped to 5.3, and 2 units of PRBCs were given. CTA chest showed occlusive PE, lobar, segmental, and distal branches of LLL, with no noted right heart strain. Small left pleural effusion and airspace disease, and number of new pulmonary nodules in L[place] and left base measuring up to 2.7cm, suspicious for metastatic disease. WINDOW FRAMER was consulted and spoke with IM, and they agreed that benefits of Eliquis for PE outweigh risks of vaginal bleeding as this is unavoidable. She also has blood cultures gowing E coli. Urine culure is negative. She was started on rocephin. ID following. 11/03 The patient is more awake and alert today. She is oriented x 3. Her is at the bedside. Information regarding palliative care philosophies and services provided. Her history and current medical issues reviewed. The patient states that she does not want to go back to rehab. She wants to go home with her . She understands that she is too weak and he would not be able to get her up. She stated she would just use a bedpan. It was also explained that she would not get as much PT at home as she would at rehab. She understands that her functional performance is too poor to receive any more treatment for her cancer. Realistically she does not think she will be able to get strong enough. She said that the chemo was really hard on her. Hospice philosophies and services explained. The patient and her understand that hospice means no more coming back and forth to the hospital and no physical therapy. They have agreed to an informational visit. They need time to think and talk things through. Hospice consulted. Will follow up with patient tomorrow. Objective - Vital Signs Vital signs: Vital Signs Temp 98.7 F 11/04/22 08:00 Pulse 64 11/04/22 08:00 Resp 18 11/04/22 08:00 BP 116/64 11/04/22 08:00 Pulse Ox 96 11/04/22 13:10 FiO2 Intake & Output 11/03/22 11/04/22 11/04/22 18:59 06:59 18:59 Intake Total 918 560 Output Total 700 Balance 918 -140 Weight 105.687 kg Intake: Intake, IV Titration 200 Amount Piperacillin-Tazobactam 3 200 .375 gm In Sodium Chloride 0.9% 100 ml @ 25 mls/hr IVPB Q8H [facility] Rx#: [id number] Oral 918 360 Output: Urine 700 Uretheral (Bryant) 700 Other: Voiding Method Indwelling Catheter Indwelling Catheter Indwelling Catheter # Bowel Movements 1 - Exam General: Well developed, well nourished. No acute distress. Chronically ill appe aring HEENT: Head is atraumatic, normocephalic. Sclera are clear. Mucus membranes moist. CV: Irregular rhythm, positive S1 and S2. No peripheral edema Lungs: Scattered rhonchi. Respirations even and nonlabored. On RA Abdomen/GI: Soft, nondistended, lowe abdomen tender to palpittion : Bryant catheter draining clear yellow urine Musculoskeletal/ Extremities: No joint deformity or swelling. No contractures or gross atrophy. + generalized weakness Skin: Warm and dry Neuro: A&O x 3. CN II-XII grossly intact. No focal deficits. - Labs CBC & Chem 7: 11/04/22 06:12 11/04/22 06:12 Labs: Abnormal Lab Results - Last 24 Hours (Table) 11/03/22 11/03/22 11/04/22 Range/Units 17:20 20:38 06:12 WBC 15.1 H (3.8-10.6) k/uL RBC 2.42 L (3.80-5.40) m/uL Hgb 7.9 L (11.4-16.0) gm/dL Hct 25.2 L (34.0-46.0) % MCV 104.0 H (80.0-100.0) fL RDW 16.7 H (11.5-15.5) % Neutrophils # 11.6 H (1.3-7.7) k/uL Sodium (137-145) mmol/L Chloride (98-107) mmol/L Carbon Dioxide (22-30) mmol/L Glucose (74-99) mg/dL POC Glucose (mg/dL) 159 H 165 H (70-110) mg/dL 11/04/22 11/04/22 11/04/22 Range/Units 06:12 06:25 11:41 WBC (3.8-10.6) k/uL RBC (3.80-5.40) m/uL Hgb (11.4-16.0) gm/dL Hct (34.0-46.0) % MCV (80.0-100.0) fL RDW (11.5-15.5) % Neutrophils # (1.3-7.7) k/uL Sodium 130 L (137-145) mmol/L Chloride 94 L (98-107) mmol/L Carbon Dioxide 31 H (22-30) mmol/L Glucose 105 H (74-99) mg/dL POC Glucose (mg/dL) 120 H 168 H (70-110) mg/dL Microbiology - Last 24 Hours (Table) 10/31/22 07:22 Blood Culture - Preliminary Blood No Growth after 96 hours 10/28/22 14:30 Blood Culture - Final Blood No Growth after 144 hours Assessment and Plan Assessment: Symptoms * Pain - 3/10 lower abdomen and chest from coughing. Increased frequency of Sparks Q4H prn, Continue Tylenol, Neurotin, and Flexeril * Fatigue - + generalized weakness and fatigue, tires very easily. Continue Ferrous sulfate * SOB - No * Insomnia - No * N/V - No * Anxiety - No * Depression - No * Confusion - Comes and goes * Agitation - No * Hallucinations - No * Appetite/weight loss - loss of appetite, continue heart healthy diet, added Glucerna TIDWM * Dysphagia -No * Constipation - Occasional, LBM today, continue senokot prn * Incontinence - No, has Bryant catheter * Itch - No * Cough - Yes, continue Tessalon perles and Robitussin Plan: Summary/Goals - THe patient states she is suffering from a broken heart. She is struggling to make a decision between hospice and rehab. She was overwhelmed with information yesterday and has not had time to process it all or talk about it with her . The COVID restrictions have prevented her family from visiting. Yesterday she finally got to see her , kids, and grand kids. She feels as if the physicians are rushing her into making a decision. When as ked if she thought she was capable of getting stronger, strong enough to walk again with assistance, she said no. She said she was pretty much bedridden before she came in. The patient believes that the doctors have given up on her because of her UTI, sepsis, PE's, and COVID pneumonia. Her major underlying issue is her stage IV metastatic uterine cancer that has progressed despite treatment. She was reminded that she would not be a candidate for further cancer treatment with such poor functional performance. She has to be the one to decide if she wants to continue to fight or to focus on surrounding her self with friends and family at home and focus on quality of life for whatever time she has remaining. She agreed to talk to her when he comes up to the hospital this afternoon to visit. Will follow up with patient and tomorrow. She states her cough has improved with the addition of Robitussin. Her pain is more controlled with the increased Sparks frequency. She has been able to eat more and has been able to drink her Glucerna supplements. Recommendations - Home with hospice vs rehab Advanced Directives - None on file Code Status - DNR Thank you for this consultation Zamzam Portillo [facility] [id number] Email: [email or web address]
[2022-11-04] MEDS ORDERED: ALPRAZolam 0.25 MG TAB PO PRN (15:14)
[2022-11-04] MEDS ORDERED: MORPHINE SULFATE 2 MG/ML SYRINGE IVP PRN (15:15)
--- NOTE | 2022-11-04 15:22 | P.PN ---
Progress Note - Text Progress Note Date: 11/04/22 Advanced Care Planning: Diagnoses: Stage IV uterine cancer Discussion: Person(s) present and participating in discussion: Patient and Summary: Had an extensive discussion with regards to lack of treatment options for stage IV uterine cancer as well as poor prognosis given her poor functional status. Patient talked about her and [id number] who suffer from cancer and was debilitated and altered while she was at home. She did not want to suffer like her. Her and her decided to pursue comfort care measures. She will like to go home with hospice. A total of 31 minutes of face to face time was spent discussing advanced care planning.
--- NOTE | 2022-11-04 15:24 | P.PN ---
Subjective Progress Note Date: 11/04/22 Principal diagnosis: E. coli bacteremia Patient is a 67-year-old female with a past medical history significant for stage IV uterine cancer hypertension hyperlipidemia atrial fibrillation and diabetes mellitus , who was brought in to the hospital for evaluation of mental status changes his work of breathing and tachycardia and [facility]. On today's evaluation that is 11/04/2022 the patient did spike a fever of 101F last evening the patient is afebrile this morning, the patient is breathing comfortably on room air , the patient denies having any chest pain or shortness of breath , the patient did have occasional dry cough the patient did have has some abdominal discomfort but no diarrhea, patient has been tolerating about hospice and terminal cancer Objective - Vital Signs Vital signs: Vital Signs Temp 98.7 F 11/04/22 08:00 Pulse 64 11/04/22 08:00 Resp 18 11/04/22 08:00 BP 116/64 11/04/22 08:00 Pulse Ox 93 L 11/04/22 08:00 FiO2 Intake & Output 11/03/22 11/04/22 11/04/22 18:59 06:59 18:59 Intake Total 918 560 Output Total 700 Balance 918 -140 Weight 105.687 kg Intake: Intake, IV Titration 200 Amount Piperacillin-Tazobactam 3 200 .375 gm In Sodium Chloride 0.9% 100 ml @ 25 mls/hr IVPB Q8H [facility] Rx#: [id number] Oral 918 360 Output: Urine 700 Uretheral (Bryant) 700 Other: Voiding Method Indwelling Catheter Indwelling Catheter Indwelling Catheter # Bowel Movements 1 - Exam GENERAL DESCRIPTION: An elderly female lying in bed in no distress RESPIRATORY SYSTEM: Unlabored breathing , decreased breath sounds at bases HEART: S1 S2 regular rate and rhythm , ABDOMEN: Soft , no tenderness EXTREMITIES: No edema feet - Labs CBC & Chem 7: 11/04/22 06:12 11/04/22 06:12 Labs: Abnormal Lab Results - Last 24 Hours (Table) 11/03/22 11/03/22 11/03/22 Range/Units 11:35 11:35 11:50 WBC 12.9 H (3.8-10.6) k/uL RBC 2.44 L (3.80-5.40) m/uL Hgb 7.9 L (11.4-16.0) gm/dL Hct 25.2 L (34.0-46.0) % MCV 103.4 H (80.0-100.0) fL RDW 17.3 H (11.5-15.5) % Neutrophils # 10.3 H (1.3-7.7) k/uL Sodium 131 L (137-145) mmol/L Chloride 95 L (98-107) mmol/L Carbon Dioxide (22-30) mmol/L Glucose 123 H (74-99) mg/dL POC Glucose (mg/dL) 132 H (70-110) mg/dL Calcium 8.3 L (8.4-10.2) mg/dL 11/03/22 11/03/22 11/04/22 Range/Units 17:20 20:38 06:12 WBC 15.1 H (3.8-10.6) k/uL RBC 2.42 L (3.80-5.40) m/uL Hgb 7.9 L (11.4-16.0) gm/dL Hct 25.2 L (34.0-46.0) % MCV 104.0 H (80.0-100.0) fL RDW 16.7 H (11.5-15.5) % Neutrophils # 11.6 H (1.3-7.7) k/uL Sodium (137-145) mmol/L Chloride (98-107) mmol/L Carbon Dioxide (22-30) mmol/L Glucose (74-99) mg/dL POC Glucose (mg/dL) 159 H 165 H (70-110) mg/dL Calcium (8.4-10.2) mg/dL 11/04/22 11/04/22 11/04/22 Range/Units 06:12 06:25 11:41 WBC (3.8-10.6) k/uL RBC (3.80-5.40) m/uL Hgb (11.4-16.0) gm/dL Hct (34.0-46.0) % MCV (80.0-100.0) fL RDW (11.5-15.5) % Neutrophils # (1.3-7.7) k/uL Sodium 130 L (137-145) mmol/L Chloride 94 L (98-107) mmol/L Carbon Dioxide 31 H (22-30) mmol/L Glucose 105 H (74-99) mg/dL POC Glucose (mg/dL) 120 H 168 H (70-110) mg/dL Calcium (8.4-10.2) mg/dL Microbiology - Last 24 Hours (Table) 10/31/22 07:22 Blood Culture - Preliminary Blood No Growth after 96 hours 10/28/22 14:30 Blood Culture - Final Blood No Growth after 144 hours Assessment and Plan (1) E coli bacteremia Current Visit: Yes Status: Acute Code(s): R78.81 - BACTEREMIA; B96.20 - UNSP ESCHERICHIA COLI THE CAUSE OF DISEASES CLASSD [facility] SNOMED Code(s): 988778811916 Plan: 1patient presented to hospital with sepsis in this patient who did have a fever tachycardia elevated white count elevated lactic acid now with evidence of gram- negative bacteremia source could be likely urinary however the patient also have left lower lobe infiltrate elevated procalcitonin and a possible component of gram-negative pneumonia. 2blood cultures has been repeated document clearance of bacteremia 3-Patient did recently tested positive for COVID-19 at the care home for which treatment will be mostly supportive , patient is currently afebrile and not hypoxic on supplemental oxygen 4-patient blood culture had been finalized with E. coli with initial concern fo r urinary source however urine culture has been negative for a question of possible abdominal source, patient did have CT of abdominal pelvis concerning for necrotic tumor and possible formation of an abscess antibiotic were adjusted to Zosyn last evening patient may benefit from hospice care, once switched to hospice antibiotic can be safely discontinued Time with Patient: Less than 30
[2022-11-04 16:35] LABS: Glucose,Whole Blood 149 mg/dL (70-110)
[2022-11-04] MEDS: CYCLOBENZAPRINE 10 MG TAB PO PRN (20:10)
[2022-11-04 20:50] LABS: Glucose,Whole Blood 140 mg/dL (70-110)
[2022-11-05] MEDS: HYDROcodone/APAP 5-325MG 1 EACH TAB PO PRN ×2 (00:07→08:46)
[2022-11-05 06:33] LABS: Glucose,Whole Blood 96 mg/dL (70-110)
[2022-11-05 08:04] VITALS: BP 158/84; PULSE 71; RESP 18; TEMP 98.6
[2022-11-05] MEDS: METOPROLOL TARTRATE 50 MG TAB PO SCH (08:45)
[2022-11-05] MEDS: FLUTICASONE 50MCG/SPRAY NASAL 16GM EA NOSTRIL SCH (08:46)
[2022-11-05] MEDS: BENZONATATE 100 MG CAP PO PRN (08:46)
[2022-11-05] MEDS: GABAPENTIN 400 MG CAP PO SCH (08:46)
[2022-11-05] MEDS: FAMOTIDINE 20 MG TAB PO SCH (08:46)
[2022-11-05] MEDS: CYCLOBENZAPRINE 10 MG TAB PO PRN (11:35)
--- NOTE | 2022-11-05 12:58 | P.DS ---
Providers Date of admission: 10/28/22 15:56 Expected date of discharge: 11/05/22 Attending physician: Gabe Hernández MD Consults: 10/28/22 15:56 Consult Physician Routine Consulting Provider: Alana Herndon Consult Reason/Comments: covid infection, sepsis Do you want consulting provider notified?: Yes 10/29/22 16:19 Consult Physician Routine Consulting Provider: Mayda Bergeron Consult Reason/Comments: PE Do you want consulting provider notified?: Yes 10/29/22 21:48 Consult Physician Urgent Consulting Provider: Ai Diaz Consult Reason/Comments: Vaginal bleeding Do you want consulting provider notified?: Yes 10/30/22 10:53 Consult Physician Routine Consulting Provider: Onofre Sears Consult Reason/Comments: Uterine cancer Do you want consulting provider notified?: Yes 11/02/22 09:48 Consult to Palliative Care Routine Consulting Provider: Zamzam Portillo Consult Reason/Comments: endometrial cancer, multiple hospitalizations Do you want consulting provider notified?: Yes Primary care physician: Damien Crump [facility] Hospital Course: Discharge Diagnosis: Sepsis Acute hypoxic respiratory failure Acute metabolic encephalopathy E. coli bacteremia Urinary tract infection Acute pulmonary emboli Asymptomatic COVID-19 pneumonia Macrocytic anemia Leukocytosis stage IV uterine cancer with metastatic disease Acute vaginal bleeding Mild hyponatremia Hospital Course: Patient is a very pleasant 67-year-old woman with a medical history of stage IV uterine cancer with metastasis, hypertension, hyperlipidemia, diabetes, iron deficiency anemia, and permanent atrial fibrillation. She was initially hospitalized on 10/05/22 for altered mentation and discharged on 10/18/22. There was concerns for aseptic meningitis given her history of keytruda and lenvima use. Stroke was ruled out with 2 MRI brains. Lumbar puncture was done which showed elevated total protein of 70, normal glucose, elevated total nucleated cells of 45 with predominance of mononuclear white blood cells. ID was consulted, and did not believe findings were consistent with bacterial meningitis. HSV and viral panel CSF was negative. She was also seen by vascular surgery for critical stenosis of the right ICA, recommended outpatient follow-up. She was initiated on Keppra for seizure prophylaxis by Neurology. She completed multiple days of Zosyn IV for presumed pneumonia. HIV and treponema were both nonreactive. Lyme screening IgG and IgM was positive at 2.05. Augmentin discontinued at that time and patient started on doxycycline 100 mg twice daily to complete a three-week course and follow up outpatient with ID. She was subsequently discharged to SNF. Patient presents back to the ED from SNF for worsening altered mentation, increased work of breathing and worsening tachycardia. Of note, patient was diagnosed with COVID-19 at SNF. In the ED, T-max was 101.3 Fahrenheit. She was tachycardic with heart rate in the 120s. Vital signs were otherwise stable. CBC showed leukocytosis of 26 with hemoglobin of 8.2 and MCV of 109.7. INR was 1.2. CMP showed sodium of 132, chloride of 92, bicarb of 36, BUN of 21, glucose 144, AST of 50 and alkaline phosphatase of 148. Lactic acid was 3.1. Ammonia was negative. Troponin was less than 0.012. BNP was 3310 chest x-ray show cardiomegaly with small left-sided pleural effusion or fluid collection and associated left lower lobe acute infiltrate/atelectasis. Brain CT was negative for acute finding. COVID-19 was positive. Influenza flu negative. Urinalysis showed large blood, large leukocyte esterase with moderate bacteria, moderate mucus and many yeast. Patient is admitted for sepsis with infectious disease consultation. Patient was started on vancomycin and cefepime for treatment of sepsis. Infecti ous disease was consulted. Blood culture came back positive for E. coli. Antibiotics were switched to Rocephin. She was noted to have a drop in her hemoglobin from 8.2-5.3 which was thought to be dilutional as all of her cell lines dropped. 2 unit of PRBC was ordered and hemoglobin improved to 9. Patient developed vaginal bleeding overnight and her Eliquis was discontinued. CREDENTIALING ASSISTANT was consulted and recommended continued monitoring for worsening of her vaginal bleeding. CTA chest was ordered because of her elevated d-dimer which showed occlusive pulmonary embolus lobar, segmental and more distal branches of the left lower lobe along with small left pleural effusion. Pulmonology was consulted and recommended reinitiating Eliquis. She continues to have intermittent fevers, CT abdomen and pelvis showed necrotic mass or primary uterine neuroplasm with abscess transformation. After further discussions with her with regards to goals of care, patient agreed to see palliative care and hospice care. She actually decided to pursue hospice care at home. Patient seen and examined at bedside. Vital signs reviewed and stable. General: nontoxic, no distress, appears at stated age Derm: warm, dry Head: atraumatic, normocephalic, symmetric Eyes: EOMI, no lid lag, anicteric sclera Mouth: no lip lesion, mucus membranes moist Cardiovascular: S1S2 irregular, no murmur Lungs: Decreased breath sounds at the bases bilaterally, no accessory muscle use Abdominal: soft, nontender to palpation, no guarding, no appreciable organomegaly Ext: no gross muscle atrophy, no edema, no contractures Neuro: CN II-XI grossly intact, no focal neuro deficits Psych: Alert, oriented, appropriate affect A total of 33 minutes of time were spent preparing this complex discharge summary. Patient was discharged on 11/05/22 at11:14. Patient Condition at Discharge: Serious Plan - Discharge Summary Discharge Rx Participant: No New Discharge Prescriptions: New Benzonatate [Tessalon Perles] 200 mg PO TID PRN #30 cap PRN Reason: Cough Continue Cyclobenzaprine [Flexeril] 10 mg PO TID PRN PRN Reason: Muscle Spasm Famotidine [Pepcid] 20 mg PO Q12H Sennosides [Senokot] 8.6 mg PO BID PRN tab PRN Reason: Constipation Ondansetron [Zofran] 4 mg PO Q4H PRN PRN Reason: Nausea And Vomiting Metoprolol Tartrate [Lopressor] 100 mg PO BID Mag Hydrox/Al Hydrox/Simeth [Maalox] 30 ml PO TID ml guaiFENesin [Mucinex] 1,200 mg PO Q12HR tab Gabapentin [Neurontin] 400 mg PO QID #12 cap Acetaminophen Tab [Tylenol] 650 mg PO Q6HR PRN tab PRN Reason: Fever And/ Or Pain HYDROcodone/APAP 5-325MG [[place] 5-325] 1 tab PO TID PRN PRN Reason: Pain Discontinued Vit C/E/Zn/Coppr/Lutein/Zeaxan [Preservision Areds 2 Softgel] 1 cap PO Q12H Ferrous Sulfate [Iron (65 MG Elemental)] 650 mg PO DAILY Digoxin [Digitek] 187.5 mcg PO MOFR Digoxin [Digitek] 125 mcg PO SUTUWETHSA Fluticasone Nasal [place] [Flonase Nasal [place]] 2 spray EA NOSTRIL DAILY ml Butalb/APAP/Caff 50-325-40Mg [Fioricet 50-325-40] 1 tab PO Q4H PRN #6 tablet PRN Reason: Headache predniSONE See Taper PO DIRECTED Apixaban [Eliquis] 5 mg PO Q12H Thiamine [Vitamin B-1] 100 mg PO DAILY [place]-3 Fatty Acids [[place]-3] 1,000 mg PO TID Cholecalciferol [Vitamin D3 (25 Mcg = 1000 Iu)] 50 mcg PO DAILY Losartan [Cozaar] 50 mg PO DAILY Atorvastatin [Lipitor] 20 mg PO HS metFORMIN HCL ER [Glucophage XR] 500 mg PO DAILY Levothyroxine Sodium [Synthroid] 175 mcg PO DAILY allopurinoL 200 mg PO DAILY Meclizine [Antivert] 25 mg PO TID PRN tab PRN Reason: Vertigo Aspirin 81 mg PO DAILY tab Doxycycline [Vibramycin] 100 mg PO BID #41 cap Zinc Gluconate [Zinc] 50 mg PO DAILY Ascorbic Acid [Vitamin C] 500 mg PO DAILY Discharge Medication List Cyclobenzaprine [Flexeril] 10 mg PO TID PRN 10/05/22 [History] Famotidine [Pepcid] 20 mg PO Q12H 10/05/22 [History] Metoprolol Tartrate [Lopressor] 100 mg PO BID 10/05/22 [History] Acetaminophen Tab [Tylenol] 650 mg PO Q6HR PRN tab 10/18/22 [Rx] Gabapentin [Neurontin] 400 mg PO QID #12 cap 10/18/22 [Rx] Mag Hydrox/Al Hydrox/Simeth [Maalox] 30 ml PO TID ml 10/18/22 [Rx] Sennosides [Senokot] 8.6 mg PO BID PRN tab 10/18/22 [Rx] guaiFENesin [Mucinex] 1,200 mg PO Q12HR tab 10/18/22 [Rx] HYDROcodone/APAP 5-325MG [[place] 5-325] 1 tab PO TID PRN 10/28/22 [History] Ondansetron [Zofran] 4 mg PO Q4H PRN 10/28/22 [History] Benzonatate [Tessalon Perles] 200 mg PO TID PRN #30 cap 11/05/22 [Rx] Follow up Appointment(s)/Referral(s): [facility] [NON-STAFF] - As Needed Samantha Paz MD [STAFF PHYSICIAN] - 4 Weeks Patient Instructions/Handouts: Hospice (DC), Uterine Cancer (DC) Discharge Disposition: HOME WITH HOSPICE
--- NOTE | 2022-11-05 13:01 | P.PN ---
Subjective Progress Note Date: 11/05/22 The patient is a 67-year-old with a medical history of endometrial adenocarcinoma, hypertension, hyperlipidemia, diabetes, iron deficiency anemia, atrial fibrillation, and metastatic uterine cancer. She is a patient of Dr. Paz and was on lenvima/keytruda treatment. However, due to multiple hospitalizations and rehab, she has only received one cycle of keytruda on 09/17/22, and stopped lenvima about 5 days before last hospitalization, on 09/29/22. She presented to the emergency department on10/28/22 from her rehab for altered mental status. Patient's reports pt has been having confusion and worsening generalized weakness over the last 1 month. Before last hospitalization last month pt had UTI and was treated on PO regimen, but was ultimately admitted to the hospital for encephalopathy. Pt was then discharged to rehab and since has been diagnosed with COVID and reports persistent cough and generalized weakness. She also reports increasing vaginal bleeding over the last 1 month that worsened yesterday. She is on Eliquis for A-fib and right ICA stenosis. Eliquis was held upon this admission due to worsening of vaginal bleeding. Hemoglobin dropped to 5.3, and 2 units of PRBCs were given. CTA chest showed occlusive PE, lobar, segmental, and distal branches of LLL, with no noted right heart strain. Small left pleural effusion and airspace disease, and number of new pulmonary nodules in LIND[place] and left base measuring up to 2.7cm, suspicious for metastatic disease. [employer] was consulted and spoke with IM, and they agreed that benefits of Eliquis for PE outweigh risks of vaginal bleeding as this is unavoidable. She also has blood cultures gowing E coli. Urine culure is negative. She was started on rocephin. ID following. 11/03 The patient is more awake and alert today. She is oriented x 3. Her is at the bedside. Information regarding palliative care philosophies and services provided. Her history and current medical issues reviewed. The patient states that she does not want to go back to rehab. She wants to go home with her . She understands that she is too weak and he would not be able to get her up. She stated she would just use a bedpan. It was also explained that she would not get as much PT at home as she would at rehab. She understands that her functional performance is too poor to receive any more treatment for her cancer. Realistically she does not think she will be able to get strong enough. She said that the chemo was really hard on her. Hospice philosophies and services explained. The patient and her understand that hospice means no more coming back and forth to the hospital and no physical therapy. They have agreed to an informational visit. They need time to think and talk things through. Hospice consulted. Will follow up with patient tomorrow. 11/04 The patient states she is suffering from a broken heart. She is struggling to make a decision between hospice and rehab. She was overwhelmed with information yesterday and has not had time to process it all or talk about it with her . The COVID restrictions have prevented her family from visiting. Yesterday she finally got to see her , kids, and grand kids. She feels as if the physicians are rushing her into making a decision. When ask ed if she thought she was capable of getting stronger, strong enough to walk again with assistance, she said no. She said she was pretty much bedridden before she came in. The patient believes that the doctors have given up on her because of her UTI, sepsis, PE's, and COVID pneumonia. Her major underlying issue is her stage IV metastatic uterine cancer that has progressed despite treatment. She was reminded that she would not be a candidate for further cancer treatment with such poor functional performance. She has to be the one to decide if she wants to continue to fight or to focus on surrounding her self with friends and family at home and focus on quality of life for whatever time s he has remaining. She agreed to talk to her when he comes up to the hospital this afternoon to visit. Will follow up with patient and tomorrow. Objective - Vital Signs Vital signs: Vital Signs Temp 98.6 F 11/05/22 07:16 Pulse 71 11/05/22 07:16 Resp 18 11/05/22 07:16 BP 158/84 11/05/22 07:16 Pulse Ox 100 11/05/22 09:09 FiO2 21 11/05/22 09:09 Intake & Output 11/04/22 11/05/22 11/05/22 18:59 06:59 18:59 Output Total 750 600 Balance -750 -600 Output: Urine 750 600 Uretheral (Bryant) 400 Other: Voiding Method Indwelling Catheter Indwelling Catheter Indwelling Catheter # Bowel Movements 2 - Exam General: Well developed, well nourished. No acute distress. Chronically ill appearing HEENT: Head is atraumatic, normocephalic. Sclera are clear. Mucus membranes moist. CV: Irregular rhythm, positive S1 and S2. No peripheral edema Lungs: Scattered rhonchi. Respirations even and nonlabored. On RA Abdomen/GI: Soft, nondistended, lower abdomen tender to palpitation : Bryant catheter draining clear yellow urine Musculoskeletal/ Extremities: No joint deformity or swelling. No contractures or gross atrophy. + generalized weakness Skin: Warm and dry Neuro: A&O x 3. CN II-XII grossly intact. No focal deficits. - Labs CBC & Chem 7: 11/04/22 06:12 11/04/22 06:12 Labs: Abnormal Lab Results - Last 24 Hours (Table) 11/04/22 11/04/22 Range/Units 16:33 20:48 POC Glucose (mg/dL) 149 H 140 H (70-110) mg/dL Microbiology - Last 24 Hours (Table) 10/31/22 07:22 Blood Culture - Preliminary Blood No Growth after 120 hours 11/03/22 21:29 Blood Culture - Preliminary Blood No Growth after 24 hours Assessment and Plan Assessment: Symptoms * Pain - 5/10 lower abdomen and chest from coughing. ContinueNorco Q4H prn, Continue Tylenol, Neurotin, and Flexeril * Fatigue - + generalized weakness and fatigue, tires very easily. Continue Ferrous sulfate * SOB - No * Insomnia - No * N/V - No * Anxiety - No * Depression - No * Confusion - Comes and goes * Agitation - No * Hallucinations - No * Appetite/weight loss - loss of appetite, continue heart healthy diet, continue Glucerna TIDWM * Dysphagia -No * Constipation - Occasional, LBM 11/04, continue senokot prn * Incontinence - No, has Bryant catheter * Itch - No * Cough - Yes, continue Tessalon perles and Robitussin Plan: Summary/Goals - The patient states that she has come to terms with the fact that she is not going to get stronger or her cancer better. She and her ta lked and decided to sign on with hospice. The patient states that her kids are aware and are also in agreement. She is scheduled to be picked up this afternoon by EMS and taken home. . Recommendations - Home with hospice Advanced Directives - None on file Code Status - DNR Thank you for this consultation [facility] [id number] Email: [email or web address]
--- NOTE | 2022-11-05 13:01 | P.PN ---
Subjective Progress Note Date: 11/05/22 Principal diagnosis: hx of uterine cancer, anemia Upon visit today, pt is resting comfortably in bed. She reports feeling very fatigued. she reports she is still having vaginal bleeding daily. She reports mild intermittent lower abdominal cramping. Denies n/v/d, melena, blood in stool, dizziness, fever and chills. Objective - Vital Signs Vital signs: Vital Signs Temp 98.6 F 11/05/22 07:16 Pulse 71 11/05/22 07:16 Resp 18 11/05/22 07:16 BP 158/84 11/05/22 07:16 Pulse Ox 100 11/05/22 09:09 FiO2 21 11/05/22 09:09 Intake & Output 11/04/22 11/05/22 11/05/22 18:59 06:59 18:59 Output Total 750 600 Balance -750 -600 Output: Urine 750 600 Uretheral (Bryant) 400 Other: Voiding Method Indwelling Catheter Indwelling Catheter Indwelling Catheter # Bowel Movements 2 - Constitutional General appearance: Present: average body habitus, no acute distress - EENT Eyes: Present: anicteric sclerae, EOMI ENT: Present: hearing grossly normal - Respiratory Details: breathing is even and unlabored - Cardiovascular Details: skin warm and dry - Integumentary Integumentary: Present: pale - Musculoskeletal Musculoskeletal: Present: generalized weakness - Psychiatric Psychiatric: Present: A&O x's 3, appropriate affect, intact judgment & insight - Labs CBC & Chem 7: 11/04/22 06:12 11/04/22 06:12 Labs: Abnormal Lab Results - Last 24 Hours (Table) 11/04/22 11/04/22 Range/Units 16:33 20:48 POC Glucose (mg/dL) 149 H 140 H (70-110) mg/dL Microbiology - Last 24 Hours (Table) 10/31/22 07:22 Blood Culture - Preliminary Blood No Growth after 120 hours 11/03/22 21:29 Blood Culture - Preliminary Blood No Growth after 24 hours Assessment and Plan (1) Endometrial carcinoma Current Visit: Yes Status: Acute Priority: High Code(s): C54.1 - MALIGNANT NEOPLASM OF ENDOMETRIUM SNOMED Code(s): 008678963 (2) Anemia Current Visit: Yes Status: Acute Priority: High Code(s): D64.9 - ANEMIA, UNSPECIFIED SNOMED Code(s): 995114864 Plan: Anemia -Hgb dropped to 5.3 after admission, 2 units PRBCs given at that time. Has not had to receive blood transfusion since 10/29. Hgb stable, 7.9 yesterday. -Reports persistent vaginal bleeding. On eliquis for hx of a-fib and right ICA stenosis. Eliquis initially held due to vaginal bleeding, however, CTA chest revealed PE of left lung. Pt was then restarted on eliquis as benefits of treatment for PE was thought to outweigh the risks of vaginal bleeding. Eliquis d/c yesterday -Will continue to monitor counts -Please transfuse for hemoglobin less than 7 or if symptomatic Metastatic uterine cancer: -Completed 3 cycles of carboplatin on 08/13/22. Due to progression found on CT scan in 09/06, patient was started on keytruda and lenvima at reduced dose. Keytruda cycle 1 was completed on 09/17/22. Last dose of Lenvima taken on about 09/29/22. She did not tolerate lenvima, only took for 1 week. This was stopped due to progressive physical and mental decline each day while on it. None of the brain imaging last inpt stay suggestive of RPLS, no mets, CSF was non- diagnostic. Treatment has been on hold due to multiple hospitalizations and subsequent rehab. -Will continue to hold treatment at this time, until pt recovers. Will schedule f/u with Dr. Paz once pt recovers to discuss treatment options and possible progression noted on CTA chest on 10/29/22. Will place in discharge plan -Spoke with patient today regarding hospice/palliative care that was discussed with IM team. Pt states that she had talked with IM about hospice, and it was recommenced due to her poor performance status and progression of disease despite previous treatment regimens. When I spoke with patient today she reports being scared of the treatments because of how she responded in the past. However, patient did want to further discuss possible other oral treatment options and possible palliative XRT to help with vaginal bleeding and reports she is still amendable to rehab. I did discuss in detail with patient that due to her poor performance she will need rehab again, and that all treatments come with side effects. She verbalized understanding. Pt could be candidate for anastrozole if she wanted to pursue further treatment, while still doing inpt rehab. Will further discuss treatment options with patient and . If they decide that they want to pursue further treatment options rather than hospice, will speak with Dr. Estes regarding possible palliative radiation as well.
--- NOTE | 2022-11-05 13:18 | P.PN ---
Progress Note - Text Progress Note Date: 11/05/22 Spoke with EDSON Norman, and asked her to hold discharge so Dr. Sears was able to further speak to her, as patient had further questions regarding treatment options in regards to her uterine cancer, vs hospice care. EDSON Norman, called clinic and states that patient no longer wants to speak to Dr. Sears and that she just wants to go home. Told RN to let pt know if she changes in her mind in the future or has further questions she may call the clinic at any time and have f/u with Dr. Paz
== END 2022-11-05 13:10 | disposition hospice, home (50) | DRG 698 ==
LOC: EC 12:11 → 4SSUR 15:56
PROVIDERS: ADMIT Student in an Organized Health Care Education/Training Program; ATTEND Student in an Organized Health Care Education/Training Program
PROC: 30233N1 Transfusion of Nonautologous Red Blood Cells into Peripheral Vein, Percutaneous Approach (ICD-10-PCS; principal; 2022-10-29)
DX: T83.511A Infection and inflammatory reaction due to indwelling urethral catheter, initial encounter (principal); A41.51 Sepsis due to Escherichia coli [E. coli]; G93.41 Metabolic encephalopathy; I26.99 Other pulmonary embolism without acute cor pulmonale; J96.01 Acute respiratory failure with hypoxia; J12.82 Pneumonia due to coronavirus disease 2019; U07.1 COVID-19; J15.6 Pneumonia due to other Gram-negative bacteria; J90 Pleural effusion, not elsewhere classified; A69.20 Lyme disease, unspecified; C78.02 Secondary malignant neoplasm of left lung; D68.59 Other primary thrombophilia; D62 Acute posthemorrhagic anemia; I48.21 Permanent atrial fibrillation; E87.1 Hypo-osmolality and hyponatremia; N13.6 Pyonephrosis; J98.11 Atelectasis; E11.40 Type 2 diabetes mellitus with diabetic neuropathy, unspecified; C54.1 Malignant neoplasm of endometrium; Z66 Do not resuscitate; Z51.5 Encounter for palliative care; I11.9 Hypertensive heart disease without heart failure; E87.8 Other disorders of electrolyte and fluid balance, not elsewhere classified; E86.0 Dehydration; E78.5 Hyperlipidemia, unspecified; E03.9 Hypothyroidism, unspecified; N93.9 Abnormal uterine and vaginal bleeding, unspecified; D63.0 Anemia in neoplastic disease; D53.9 Nutritional anemia, unspecified; I65.21 Occlusion and stenosis of right carotid artery; K59.00 Constipation, unspecified; M10.9 Gout, unspecified; Z79.01 Long term (current) use of anticoagulants; Z79.82 Long term (current) use of aspirin; Z79.890 Hormone replacement therapy; Z79.84 Long term (current) use of oral hypoglycemic drugs; Z79.899 Other long term (current) drug therapy; Z87.891 Personal history of nicotine dependence; Z85.828 Personal history of other malignant neoplasm of skin; Z74.01 Bed confinement status; Z71.3 Dietary counseling and surveillance; Y84.6 Urinary catheterization as the cause of abnormal reaction of the patient, or of later complication, without mention of misadventure at the time of the procedure; Z88.1 Allergy status to other antibiotic agents; Z88.3 Allergy status to other anti-infective agents; Z88.5 Allergy status to narcotic agent
CPT/HCPCS: 36415; 51702; 70450; 71046; 71275; 74177; 80048; 80053; 81001; 82140; 82565; 83605; 83735; 83880; 84145; 84484; 85025; 85027; 85379; 85610; 85730; 86140; 86850; 86900; 86901; 86920; 87040; 87077; 87086; 87186; 87636; 93005; 93970; 94760; 96365; 96366; 96368; 99291